=== PATIENT | male | born 1955 | race African-American/Black ===

== ENCOUNTER 2017-02-03 10:36 | Observation (INO) ==
[2017-02-03] MEDS ORDERED: NS 1,000 ML IV ONE ×3 (11:13→15:19)
[2017-02-03 11:35] LABS: MANUAL DIFF NEEDED? NO
--- NOTE | 2017-02-03 11:36 | Diag Imaging Result Doc PS360 ---
EXAM: CHEST-2 VIEWS HISTORY: tachycardia TECHNIQUE: COMPARISON: 11/09/2016 FINDINGS: The lungs are well expanded. The heart is not enlarged. The vessels are not distended. There are no infiltrates. No pleural effusions. Interval removal of the left-sided PICC line. Resolution of the prior atelectasis. IMPRESSION: No acute abnormality. Electronically signed by Rupert Drake 02/03/2017 11:34 AM
[2017-02-03 11:45] LABS: BASO% 0.1 % (0.0-0.8); EOS# 0.01 X1000 (0.0-0.7); EOS% 0.1 % (0.0-10.0); HEMATOCRIT 35.7 % (42.0-52.0); HEMOGLOBIN 11.7 g/dL (14.0-18.0); IMM GRAN# 0.11 X1000 (0.0-0.04); IMM GRAN% 0.7 % (0.0-0.5); LYMPH# 1.84 X1000 (1.2-3.4); LYMPH% 12.1 % (20.5-51.1); MCH 24.6 PG (27-31); MCHC 32.8 g/dL (33-37); MCV 75.2 FL (81-99); MONO# 1.19 X1000 (0.11-0.59); MONO% 7.8 % (1.7-9.3); MPV 9.9 FL (7.4-10.4); NEUT% 79.2 % (42.2-75.2); PLT 386 X1000 (130-400); RBC 4.75 XMIL (4.7-6.1)
[2017-02-03 11:51] LABS: ALLEN TEST YES; BE -2.1 mmoll (-3.0-3.0); BLOOD TYPE ARTERIAL; DRAW SITE L RADIAL; METHB 0.9 % (0.0-1.5); O2(CT) 15.6 mL/dL (15.0-23.0); PCO2(98.6) 36 mmHg (35-45); PO2(98.6) 81 mmHg (60-100); SAMPLE BLOOD; SAO2 98.4 % (95.0-100.0); THB 11.5 g/dL (11.5-17.4)
[2017-02-03 11:52] LABS: INR 1.27; PROTIME 13.5 Seconds (9.2-11.7); PTT 36.6 Seconds (22.0-36.0)
[2017-02-03 11:52] LABS: MODALITY ROOM AIR
[2017-02-03 12:16] LABS: ALBUMIN 4.3 g/dL (3.5-5.0); CALCIUM 11.4 mg/dL (8.8-10.2); TOTAL BILIRUBIN 0.19 mg/dL (0.20-1.00); TOTAL PROTEIN 9.2 g/dL (6.3-8.3)
--- NOTE | 2017-02-03 12:23 | EKG Report ---
Test Performed on : 02/03/2017 11:50:53 AM Test Reason : tachycardia Blood Pressure : / mmHG Vent. Rate : 098 BPM Atrial Rate : 098 BPM P-R Int : 216 ms QRS Dur : 106 ms QT Int : 416 ms P-R-T Axes : 070 -60 044 degrees QTc Int : 531 ms Sinus rhythm. with 1st degree AV block. with frequent premature ventricular complexes. in a pattern of bigeminy. Left axis deviation Nonspecific ST abnormality Prolonged QT Abnormal ECG When compared with ECG of 01-NOV-2016 09:47, Significant changes have occurred Unconfirmed Result
[2017-02-03 12:36] LABS: POTASSIUM 2.4 mmol/L (3.5-5.1)
[2017-02-03] MEDS ORDERED: KLOR-CON PO ONE (12:53)
--- NOTE | 2017-02-03 14:09 | Diag Imaging Result Doc PS360 ---
EXAM: ABDOMEN/PELVIS W/O CONTRAST INDICATION: abd pain diarrhea leukocytosis TECHNIQUE: Dose reduction protocol was used. COMPARISON: 10/24/2016 FINDINGS: There is minimal subsegmental atelectasis at the lung bases. The more severe atelectasis seen on the previous study has improved greatly. The spleen is not enlarged. There are a few calcified granulomata in the liver and the spleen. The kidneys are unremarkable. There is questionable mild thickening involving the sigmoid and descending colon with adjacent very subtle stranding. This could indicate mild colitis. Please correlate with clinical findings. Full evaluation is limited with no IV contrast. There are traces of radiopaque material in the distal colon, likely contrast from a previous study. There is no free abdominal gas or free fluid. There is no obstructive bowel pattern. The remainder of the solid viscera of the abdomen and pelvis and the remainder of the GI tract are essentially unremarkable. There are innumerable lytic lesions throughout the spine, sacrum, and pelvis that are similar to the previous study and consistent with known multiple myeloma. IMPRESSION: 1.Questionable mild distal colonic wall thickening and perhaps subtle surrounding stranding, which could indicate very mild colitis. Please correlate clinically. 2.Diffuse lytic bony metastases. 3.Other incidental/nonacute findings detailed above. Electronically signed by Mata Red 02/03/2017 2:06 PM
[2017-02-03] MEDS ORDERED: FLAGYL 500 MG/NS 500 MG/100 ML IVPB IV ONE (14:41)
[2017-02-03] MEDS ORDERED: LEVAQUIN 500 MG/D5W 500 MG/100 ML IVPB IV ONE (14:41)
--- NOTE | 2017-02-03 15:38 | PROVIDER DOCUMENTATION ---
This chart was entered by Nic Garrett Scribe, acting as scribe for Dea Aiken MD. HPI-General Adult - General Chief Complaint: General Adult Stated Complaint: DIARRHEA/WEAK Time Seen by Provider: 02/03/17 11:01 Source: patient, family Allergies/Adverse Reactions: Patient Allergies Allergy/AdvReac Type Severity Reaction Status Date / Time No Known Allergies Allergy Verified 02/03/17 10:59 Home Medications: Home Medication List Medication Instructions Recorded Confirmed Last Taken Type Furosemide [Lasix] 40 mg PO DAILY 10/24/16 02/03/17 1 Day Ago History Levalbuterol Neb [Xopenex Neb] 1.25 mg INH RTQ4H #0 neb 11/08/16 02/03/17 1 Day Ago Rx Pantoprazole [Protonix] 40 mg PO DAILY@0700 #0 tablet 11/08/16 02/03/17 1 Day Ago Rx Polyvinyl Alcohol Eye Drops 1 ml RIGHT EYE 4XDAY #0 bottle 11/08/16 02/03/17 1 Day Ago Rx [Tearisol Oph Solution] Albuterol 2.5MG/Ipratrop 0.5MG 3 ml INH RTQ6H #0 neb 11/11/16 02/03/17 1 Day Ago Rx [Duoneb (A & A)] Diltiazem HCl [Cartia Xt] 120 mg PO QAM 02/03/17 02/03/17 1 Day Ago History Gabapentin 300 mg PO TID 02/03/17 02/03/17 1 Day Ago History Methocarbamol [Methocarbamol] 750 mg PO BID 02/03/17 02/03/17 1 Day Ago History Mirtazapine [Mirtazapine] 15 mg PO DAILY 02/03/17 02/03/17 1 Day Ago History Polyethylene Glycol 3350 [Miralax] 17 gm PO QAM 02/03/17 02/03/17 1 Day Ago History Potassium Chloride 20% Liquid 20 meq PO BID 02/03/17 02/03/17 1 Day Ago History Valacyclovir HCl [Valacyclovir] 500 mg PO BID 02/03/17 02/03/17 1 Day Ago History Warfarin Sodium [Warfarin Sodium] 1 mg PO DAILY 02/03/17 02/03/17 1 Day Ago History - History of Present Illness -Gen Adult Nature of Presenting Problems: Patient is a 62 y/o M that presents with weakness, diarrhea, loss of balance( falling frequently), and loss of appetite for weeks, but got worse over past few days. patient has bone cancer and is being treated by ( chemo injections). patient was seen 2 days ago and giving fluids but symptoms got worse. He was also advise he had low potassium the other day. Location of Pain/Injury: reports: generalized Pain Radiation: reports: no radiation Quality of Pain: reports: aching, other (weakness) Severity: reports: moderate Onset/Duration: reports: gradual, other (weeks unable to pinpoint when) Timing: reports: still present, constant Context/Activities at Onset: reports: other (recent chemo) Modifying Factors: improves with: nothing Associated Symptoms: reports: diarrhea, dizziness, fatigue, loss of appetite, malaise, muscle aches, nausea, weakness. denies: chest pain, diaphoresis, fever /chills, genitourinary problems, shortness of breath, vomiting Similar Symptoms Previously?: Yes Recently seen or treated by another doctor?: Yes Review of Systems - Adult - REVIEW OF SYSTEMS - ADULT ROS:: ROS per family (as well as patient) Constitutional: reports: fatique, weight loss. denies: chills, fever Eyes: reports: no symptoms reported Ears, Nose, Mouth & Throat: denies: ear discharge, ear pain, sinus problem, throat pain, throat swelling Cardiovascular: denies: chest pain, palpitations, syncope Respiratory: denies: cough, shortness of breath, wheezing Gastrointestinal: reports: abdominal pain, diarrhea, nausea, poor appetite. denies: hematemesis, vomiting Genitourinary: denies: dysuria, frequency, hematuria Musculoskeletal: reports: muscle aches, muscle weakness Integumentary: reports: no symptoms reported Neurological: reports: dizziness/vertigo, loss of balance. denies: headache/ migraines, syncope Psychiatric: reports: no symptoms reported Endocrine: reports: no symptoms reported Hematologic/Lymphatic: reports: no symptoms reported Allergic/Immunologic: reports: no symptoms reported All Other Systems: Reviewed and Negative Past History - Adult - PAST MEDICAL HISTORY-ADULT Review of Records: reports: Old Records Reviewed, Nursing Assessment Review, Medications Reviewed Cardiovascular: reports: CHF, HTN Other Conditions: reports: other cancer ("bone" per patient) - PRIOR SURGERIES/PROCEDURES Surgical/Procedure History: reports: reviewed, not pertinent - IMMUNIZATION STATUS Childhood Immunizations: See Nurse Assessment Flu Vaccine: See Nurse Assessment - FAMILY HISTORY Family History: reviewed, not pertinent - SOCIAL HISTORY Smoking: non-smoker Alcohol Use Frequency: occasionally Living Situation: family Physical Exam-General - PHYSICAL EXAM-ADULT Initial Vital Signs Reviewed: Yes - CONSTITUTIONAL General Appearance: alert, mild distress, moderate distress, thin, other ( chronic ill-appearing) - EYES Eyes: PERRL/EOMI, pink conjunctivae - HEAD, EARS, NOSE, MOUTH & THROAT HENMT: normocephalic/atraumatic, normal ENT inspection, other (dry oral mucosa) - NECK Neck: full range of motion, normal inspection - RESPIRATORY Respiratory: lungs clear, normal breath sounds, no respiratory distress, no accessory muscle use, other (muscle spasm to chest) - CARDIOVASCULAR Cardiovascular: tachycardia, extra beats - GASTROINTESTINAL (ABDOMEN) Abdominal Exam: normal bowel sounds, soft, no organomegaly, no pulsatile mass, tenderness (lower abdomen( RLQ and LLQ)) - MUSCULOSKELETAL Back Exam: no CVA tenderness, no vertebral tenderness Extremity: normal range of motion, normal inspection, no pedal edema - SKIN Integumentary: normal color, warm/dry - NEUROLOGIC Neurologic: grossly normal, no motor/sensory deficits - PSYCHIATRIC Psych/Mental Status: normal mood/affect, normal thought content, normal thought process, oriented x 3 Progress - PLAN OF CARE/RESULTS Progress/Plan/Lab Results: Vital Signs - 8 hr 02/03/17 10:41 Temperature 97.5 F L Pulse Rate 121 H Respiratory Rate 18 Blood Pressure 136/96 O2 Sat by Pulse Oximetry 100 Result Diagrams: 02/03/17 11:19 02/03/17 11:19 - EKG 1 Time of EKG reading by physician:: 11:50 EKG Read and Signed by:: Dea Aiken EKG Interpretation (*Must complete 3 of following elements*): Abnormal Rate: 98 Rhythm: Sinus rhythm with 1st degree av block [place]: left QRS: PVC's (frequent, bigminy) PA Interval: normal ST Wave: non-specific ST changes - XRAY 1 XRAY Study: Chest Impression: Normal XRAY Interpretation: NAD - CT/MRI 1 CT Study: Abdomen, Pelvis Impression: Abnormal CT Results: lytic bone metastaes, mild colonic wall thickening,very mild colitis - CONSULTS/PCP/HOSPITALIST Notification #1 *Consult/PCP/Hospitalist*: Anamaria VINCENT Time Discussed: 15:12 Reason/Comments: accepted for Hospitalist ( ) Consult Disposition: Will see in ED, Admit Departure - Departure Date of Disposition Decision: 02/03/17 Time of Disposition Decision: 15:18 DIAGNOSIS: Dehydration, Colitis, Hypokalemia Disposition: ADMITTED INPATIENT 09 Certified Medical Emergency: Emergent Condition: Stable Referrals and Follow-Ups: Demetrio Aragon MD [Primary Care Provider] - - Critical Care Note This patient required my direct & personal management of CC.: Yes Total Time (mins): 35 Critical Care Statement: This patient required my direct personal management to treat or rule out processes, the absence of which, could potentiallly result in sudden, clinically significant life or limb threatening deterioration. This chart was documented by the indicated scribe, (Nic Garrett, Scribe) and accurately reflects the services I performed and decisions made by me, Dea Aiken MD, as attested by the provider's signature.
--- NOTE | 2017-02-03 17:06 | HISTORY AND PHYSICAL ---
HISTORY OF PRESENT ILLNESS: Mr. Majano came to the emergency room and complains that he has had diarrhea and he has not been eating much and losing some weight and very weak. This is a patient of Dr. Demetrio Aragon, followed by Dr. Kvng Kaminski. He is a 61-year-old male with history of multiple myeloma on chemotherapy, had been treated by Dr. Kaminski. He presented on 10/24/2016 complaining of shortness of breath for several days, abdominal pain at that time. He also appeared to be in septic shock at that point. He was admitted and got better, went to rehab, did make some improvement in rehab and then has been home. Family is concerned because he continues to lose weight and stools are loose, and it has been going on for a couple weeks, but it seems to be worse in the last [address] of the abdomen and pelvis in the emergency room, questionable mild distal colonic wall thickening and perhaps a subtle surrounding stranding which could indicate mild colitis. Has diffuse lytic bone metastasis, other incidental nonacute findings. PAST MEDICAL HISTORY: I think we gave some immunoglobulin, treated him with pneumonia, prolonged course. But really only significant past medical problem is his multiple myeloma which has been very aggressive. We suspect he has had some gastritis. PAST SURGICAL HISTORY: Pretty unremarkable. FAMILY HISTORY: Unknown, noncontributory. SOCIAL HISTORY: Negative for alcohol or tobacco. ALLERGIES: No known drug allergies. REVIEW OF SYSTEMS: He has lost weight. His appetite is poor, and loose stool. Does not report any shortness of breath or chest pain. No blood in the stool. No gross hematuria or dysuria. No focal motor defects. No history of presyncope or syncope. PHYSICAL EXAMINATION TODAY: Vital Signs: Temperature 97.5 degrees, pulse 90, respirations 17, blood pressure 145/95. CVP less than 6 cm. Lungs: Clear in all lung saleh. Cardiovascular: Regular rate without murmur or S3. Weight 126 pounds, height 5 feet 10 inches. Lungs: Clear anterior and lateral Cardiovascular: Regular rhythm and rate without murmur or S3. Abdomen: Soft, nontender, nondistended. Skin: Warm and dry. Neurologic: He is awake and alert, oriented and pleasant. No sign of distress. DIAGNOSTIC DATA: White count 15,220, hematocrit 35, platelet count 386,000. Sodium 131, potassium 2.4, chloride 90, bicarb 30, BUN 17, creatinine 2.3. Liver functions unremarkable. Albumin 4.3, globulin 4.9. PT is 13.5, PTT is 36. ABGs; pH of 7.4, pCO2 36, PO2 81, saturation 98%, FiO2 21%. Abdominal and pelvic CT: Questionable mild distal colonic wall thickening and perhaps septal surrounding stranding which could indicate mild colitis, diffuse lytic bone metastasis. Chest x-ray: No acute abnormality. ASSESSMENT AND PLAN: 1. Anorexia, weight loss, poor appetite, and loose stools, diarrhea. Questionable colitis on the CT scan. Will ask Gastroenterology to help. He is hungry so we will try him on a soft diet. I am not sure if he is going to require a colonoscopy. We have not seen any evidence of bleeding, hematocrit is 35, hemoglobin 11, with an MCV of 75. So I guess we will check some iron studies. Serum iron, total iron-binding capacity, and ferritin. We will also go ahead and check a quantitative C-reactive protein, and see if any sign of inflammation. 2. Hypokalemia. Will give him some potassium, 40 mEq KCl p.o. now, actually I think we will give it to him p.o., so we will give him 40 mEq p.o. now. He already got 60 in the emergency room. So I guess we will leave that alone and check it in the morning. We will check his magnesium as well. 3. Multiple myeloma with lytic lesions seen on CAT scan. Dr. Kaminski will help follow. I am not sure if we need to check an M protein or markers, but we will see what he wants to do. We will check stools for Clostridium difficile, white blood cell. cc: Jose Mario MD
[2017-02-03] MEDS ORDERED: ZOFRAN IV PRN (17:54)
[2017-02-03] MEDS ORDERED: TYLENOL PO PRN (17:54)
[2017-02-03] MEDS: NS 1,000 ML IV SCH (19:00)
[2017-02-03] MEDS: NEURONTIN PO SCH (19:00)
[2017-02-03] MEDS: TEARISOL OPH SOLUTION RIGHT EYE SCH ×2 (19:20→21:23)
[2017-02-03] MEDS: DUONEB (A & A) INH SCH (21:08)
[2017-02-03] MEDS: FLAGYL 500 MG/NS 500 MG/100 ML IVPB IV SCH (21:19)
[2017-02-03] MEDS: ROBAXIN PO SCH (21:21)
[2017-02-03] MEDS: PRILOSEC PO SCH (21:21)
[2017-02-03] MEDS: CIPRO PO SCH (21:21)
[2017-02-03] MEDS: POTASSIUM CHLORIDE 20% LIQUID PO SCH (21:22)
[2017-02-03] MEDS: VALTREX PO SCH (21:22)
[2017-02-04 00:35] LABS: URINE CULTURE NEEDED? NO; URINE MICRO REVIEW NEEDED? NO; URINE SOURCE CLEAN CATCH
[2017-02-04 00:37] LABS: BILIRUBIN URINE NEGATIVE (NEGATIVE); BLOOD URINE NEGATIVE (NEGATIVE); COLOR YELLOW; GLUCOSE URINE NEGATIVE (NEGATIVE); LEUKOCYTES URINE NEGATIVE (NEGATIVE); NITRITE URINE NEGATIVE (NEGATIVE); PH URINE 5.5; PROTEIN URINE TRACE mg/dL (NEGATIVE); SP GRAVITY URINE 1.007; TURBIDITY URINE CLEAR (CLEAR); UROBILINOGEN URINE NORMAL (NORMAL)
[2017-02-04 00:39] LABS: UR EPITHELIAL CELLS <10 /HPF (<10); URINE BACTERIA NEGATIVE /HPF; URINE RBC <10 /HPF (<10); URINE WBC <10 /HPF (<10)
[2017-02-04] MEDS: COUMADIN PO SCH ×2 (03:20→22:00)
[2017-02-04] MEDS: FLAGYL 500 MG/NS 500 MG/100 ML IVPB IV SCH ×4 (03:20→21:59)
[2017-02-04] MEDS: DUONEB (A & A) INH SCH ×4 (04:02→22:25)
--- NOTE | 2017-02-04 06:27 | PROGRESS NOTE ---
DATE: 02/03/2017 ADDENDUM: 1. Note that he has acute kidney injury as well. Serum creatinine 2.3. So, we are going to give him some fluids and follow. 2. He is on Coumadin. I notice where he was put on Cardizem. That was really for sinus tachycardia. I do not see any evidence that he had atrial but he was also on Coumadin; I am not sure exactly why. He has had a noninvasive venous study done which was negative. His protime is subtherapeutic. We will keep him on it for now and see if we can explore reasons why he is on it. We will initiate some Flagyl and Levaquin for possible colitis. cc: Jose Mario MD
[2017-02-04 06:57] LABS: MANUAL DIFF NEEDED? NO
[2017-02-04 07:07] LABS: INR 1.28; PROTIME 13.7 Seconds (9.2-11.7); PTT 34.6 Seconds (22.0-36.0)
[2017-02-04 07:09] LABS: BASO% 0.1 % (0.0-0.8); EOS# 0.01 X1000 (0.0-0.7); EOS% 0.1 % (0.0-10.0); HEMATOCRIT 25.2 % (42.0-52.0); HEMOGLOBIN 8.2 g/dL (14.0-18.0); IMM GRAN# 0.09 X1000 (0.0-0.04); IMM GRAN% 1.2 % (0.0-0.5); LYMPH# 1.49 X1000 (1.2-3.4); LYMPH% 19.6 % (20.5-51.1); MCH 24.9 PG (27-31); MCHC 32.5 g/dL (33-37); MCV 76.6 FL (81-99); MONO# 0.94 X1000 (0.11-0.59); MONO% 12.3 % (1.7-9.3); MPV 9.4 FL (7.4-10.4); NEUT% 66.7 % (42.2-75.2); PLT 281 X1000 (130-400); RBC 3.29 XMIL (4.7-6.1)
[2017-02-04 07:30] LABS: AGAP 12; ALBUMIN 3.2 g/dL (3.5-5.0); ALKALINE PHOSPHATASE 64 U/L (32-122); BUN 11 mg/dL (8-22); CALCIUM 8.6 mg/dL (8.8-10.2); CHLORIDE 103 mmol/L (98-107); COSMO 271; GOT 11 U/L (10-34); GPT 5 U/L (10-44); MAGNESIUM 1.8 mg/dL (1.5-2.7); POTASSIUM 3.1 mmol/L (3.5-5.1); SODIUM 136 mmol/L (136-145); TCO2 21 mmol/L (25-35); TOTAL BILIRUBIN 0.18 mg/dL (0.20-1.00); TOTAL PROTEIN 6.2 g/dL (6.3-8.3)
[2017-02-04 07:45] LABS: FREE T4 1.12 ng/dL (0.93-1.70)
[2017-02-04] MEDS: NS 1,000 ML IV SCH ×3 (08:53→16:53)
--- NOTE | 2017-02-04 12:40 | CONSULTATION ---
DATE OF CONSULTATION: 02/04/2017 REASON FOR CONSULT: This patient has a IgA lambda multiple myeloma. HISTORY OF PRESENT ILLNESS: The patient is known to us with IgA lambda multiple myeloma. His myeloma has been very stable on maintenance Velcade 3 weeks on and 1 week off. He does also have known bone metastases. He is on Zometa. Was admitted after having several days of diarrhea and continued weight loss. He has had some weight loss at our clinic. He had initially been placed on Remeron which did not work for him and then we changed him to Megace 40 mg t.i.d. as well as thromboprophylaxis with low-dose Coumadin. The patient's weight however apparently has continued to decline and he had an episode of dizziness and feels generally weak. The patient came to the emergency room for further evaluation. A CT abdomen and pelvis has been performed which shows questionable mild distal colonic wall thickening and subtle stranding in the surrounding areas which could indicate very mild colitis as well as diffuse lytic bony metastases. Initial WBC was 15.22, hemoglobin 11.7, platelet count 380,000. His sodium was 131, potassium was 2.4. The patient denies any obvious clinical bleeding, any black or bright red stools, any fever, chills, worsening bone pain, new lumps or bumps. REVIEW OF SYSTEMS: All other review of systems negative unless indicated in the HPI. PAST MEDICAL HISTORY: Multiple myeloma as above. He also has a history of bony metastases on Zometa, Klebsiella sepsis and hypogammaglobulinemia, neuropathy on Neurontin and decreased appetite and weight loss. ALLERGIES: No known allergies. SOCIAL HISTORY: Patient denies alcohol, illicit drug or tobacco use. He has a supportive family. PHYSICAL EXAMINATION: Vital Signs: Stable. Cardiovascular: S1, S2 audible to auscultation with no heaves, lifts, thrills. Pulmonary: Breath sounds clear to auscultation. Normal respiratory effort. HEENT: Head is normocephalic, atraumatic. Pupils equal, round, symmetric. Mucous membranes are dry. Abdomen: Soft, slightly tender. Positive bowel sounds. Skin: No petechiae, ecchymosis or rash. Lymphatic: No palpable enlarged lymph nodes. Neurologic: Alert orient x3. Psychiatric: Appropriate to the situation. DIAGNOSTIC DATA: CT abdomen pelvis as above. WBC today is 7.62, hemoglobin is down to 8.2, hematocrit 25.2, platelet count 281,000. Sodium is 136, potassium 3.1. BUN is 11 and creatinine is 1.1. ASSESSMENT AND PLAN: 1. IgA lambda multiple myeloma. On maintenance Velcade 3 weeks on and 1 week off. The patient has declined transplant evaluation. He has known bone metastases on Zometa. His counts have been very stable. 2. Weight loss and anorexia. We placed the patient on Megace 40 mg t.i.d. and he also had thromboprophylaxis provided with low-dose Coumadin. He however continued to have weight loss with plans as below. 3. Diarrhea and questionable colitis on CT scan. GI has been consulted. His hemoglobin and hematocrit has come down over the past 24 hours although it could be due to the level of dehydration. Hemoglobin is 8.2, hematocrit 25.2 today. We will monitor that. The patient has been started on Flagyl. Stool cultures have been ordered as has C. difficile toxin. He is also on Cipro and will transfuse p.r.n. 4. History of Klebsiella sepsis with hypogammaglobulinemia. 5. Electrolyte imbalance. They are being replaced per primary team. 6. DVT prophylaxis with SCDs. 7. Acute Kidney Injury/Dehydration. Creatinine is improved with NS. Dictated by MELISA Long for Kvng Kaminski MD cc: MELISA Long MD [facility]
[2017-02-04] MEDS ORDERED: DIPRIVAN 1% ONE (14:19)
[2017-02-04] MEDS ORDERED: VERSED ONE (14:31)
--- NOTE | 2017-02-04 15:20 | OPERATIVE NOTE ---
PROCEDURE DATE: 02/04/2017 PROCEDURE: 1. Colonoscopy. 2. Esophagogastroduodenoscopy. PREOP DIAGNOSES: 1. Nausea, vomiting, 2. Diarrhea. POSTOP DIAGNOSES: 1. Mild esophagitis otherwise normal upper gastrointestinal tract. 2. Normal colonoscopy. 3. Few diverticula. DESCRIPTION OF PROCEDURE: After informed consent, adequate intravenous sedation by Anesthesia, the scope introduced the esophagus. Patient has reflux esophagitis. Cardia, fundus, body, antrum, pylorus, duodenal bulb to 2nd portion normal. The scope was withdrawn. At this point digital rectal exam performed. Scope introduced all the way into cecum. The patient has diverticulum above the ileocecal valve and a couple of other diverticula. Other than that colonoscopy is completely normal. There is no sign of any colitis or pseudomembranes. The scope is withdrawn. The patient tolerated procedure, transported back to recovery area in satisfactory condition. RECOMMENDATION: Advance the diet, discontinue the antibiotic, discharge planning. cc: Kami Pettit MD
[2017-02-04] MEDS: POTASSIUM CHLORIDE 20% LIQUID PO SCH ×2 (15:54→21:59)
[2017-02-04] MEDS: NEURONTIN PO SCH ×3 (15:54→22:33)
[2017-02-04] MEDS: CARDIZEM CD PO SCH (15:54)
[2017-02-04] MEDS: CIPRO PO SCH ×2 (15:54→22:00)
[2017-02-04] MEDS: ROBAXIN PO SCH ×2 (15:55→22:01)
[2017-02-04] MEDS: PRILOSEC PO SCH ×2 (15:55→22:00)
[2017-02-04] MEDS: REMERON PO SCH (15:55)
[2017-02-04] MEDS: VALTREX PO SCH ×2 (15:56→22:33)
[2017-02-04] MEDS: TEARISOL OPH SOLUTION RIGHT EYE SCH ×4 (15:56→22:36)
--- NOTE | 2017-02-04 17:45 | PROGRESS NOTE ---
DATE: 02/04/2017 SUBJECTIVE: Mr. Majano had a colonoscopy and apparently was unremarkable. He is feeling better. He is able to eat a couple of bites. His bowels have not moved yet. He has no nausea at this time. OBJECTIVE: Vital signs: Temperature is 97.5 degrees, pulse 85, respirations 20, blood pressure 151/91. Lungs: Clear in all lung saleh. Neck: CVP less than 6 cm. Cardiovascular: Regular rate without murmur or S3. Abdomen: Soft. LAB: White count 7,620, hematocrit 25, platelet count 281,000. Chemistry sodium 136, potassium 3.1, chloride 103, bicarb 21, BUN 11, creatinine 1.1, magnesium 1.8, calcium 8.6. C-reactive protein was 29.78. Albumin 3.2. ASSESSMENT AND PLAN: 1. Nausea, vomiting, diarrhea. Had colonoscopy and EGD. Mild esophagitis, otherwise normal upper gastrointestinal tract. 2. Normal colonoscopy. There were a few diverticula. Recommend we advance diet. Will probably discontinue his antibiotic. Note, he did have some leukocytosis and on CT scan there was question of a thickened colon. 3. IgA lambda multiple myeloma. On maintenance Velcade 3 weeks and 1 week off. The patient has declined a transplant evaluation. He has known bony metastases. He is on Zometa and his counts have been stable. 4. Weight loss and anorexia. Patient placed on Megace. He has also had thrombo prophylaxis provided with low-dose Coumadin. Encourage p.o. intake. 5. Diarrhea. Questionable colitis, as above. We will supplement some potassium. REVIEW OF HIS ORDERS: I do not see much in the way of change. We have him on Flagyl right now and Cipro. I think stool was sent for studies. cc: Jose Mario MD
[2017-02-05] MEDS: NS 1,000 ML IV SCH ×2 (03:03→04:59)
[2017-02-05] MEDS: FLAGYL 500 MG/NS 500 MG/100 ML IVPB IV SCH ×2 (03:04→08:47)
[2017-02-05] MEDS: DUONEB (A & A) INH SCH ×3 (03:59→15:50)
[2017-02-05 06:43] LABS: MANUAL DIFF NEEDED? NO
[2017-02-05 06:57] LABS: BASO% 0.1 % (0.0-0.8); EOS# 0.02 X1000 (0.0-0.7); EOS% 0.3 % (0.0-10.0); HEMATOCRIT 24.8 % (42.0-52.0); HEMOGLOBIN 8.1 g/dL (14.0-18.0); IMM GRAN# 0.05 X1000 (0.0-0.04); IMM GRAN% 0.7 % (0.0-0.5); INR 1.3; LYMPH# 1.56 X1000 (1.2-3.4); LYMPH% 23.3 % (20.5-51.1); MCHC 32.7 g/dL (33-37); MCV 76.5 FL (81-99); MONO# 0.96 X1000 (0.11-0.59); MONO% 14.3 % (1.7-9.3); MPV 9.6 FL (7.4-10.4); NEUT% 61.3 % (42.2-75.2); PLT 243 X1000 (130-400); PROTIME 13.9 Seconds (9.2-11.7); RBC 3.24 XMIL (4.7-6.1)
[2017-02-05] MEDS: CIPRO PO SCH (08:44)
[2017-02-05] MEDS: ROBAXIN PO SCH (08:44)
[2017-02-05] MEDS: VALTREX PO SCH (08:45)
[2017-02-05] MEDS: REMERON PO SCH (08:45)
[2017-02-05] MEDS: POTASSIUM CHLORIDE 20% LIQUID PO SCH (08:46)
[2017-02-05] MEDS: NEURONTIN PO SCH (08:46)
[2017-02-05] MEDS: PRILOSEC PO SCH (08:46)
[2017-02-05] MEDS: CARDIZEM CD PO SCH (08:46)
[2017-02-05] MEDS: TEARISOL OPH SOLUTION RIGHT EYE SCH (08:49)
[2017-02-05 08:52] VITALS: BP 130/84
[2017-02-05] MEDS ORDERED: CENTRUM SILVER PO SCH (10:30)
[2017-02-05] MEDS ORDERED: ICAR-C PO SCH (10:30)
--- NOTE | 2017-02-05 12:24 | PROGRESS NOTE ---
DATE: 02/05/2017 SUBJECTIVE: Mr. Majano feels much better. He wants to try and get up and move around and see how he does but he is eating better. Nausea and abdominal pain resolved. OBJECTIVE: Vital Signs: Temperature 98.3 degrees, pulse 97, respirations 18, blood pressure 130/84. HEENT: Pupils are equal, round. Lungs: Clear in all lung saleh. Cardiovascular: Regular rhythm and rate without murmur or S3. Urine output 800 mL. LABORATORY DATA: White count 6690, hematocrit 24, platelet count 243,000. Sodium 136, potassium 3.1, chloride 103, BUN 11, creatinine 1.1. Feels much better. Doing much better. He said he wants to see how he does walking around and may want to go home today. ASSESSMENT/PLAN: 1. Nausea, vomiting, diarrhea. A colonoscopy/EGD, mild esophagitis. Otherwise normal upper GI tract. 2. Normal colonoscopy. He had a few diverticulum. 3. IgA lambda multiple myeloma. On maintenance Velcade 3 weeks and 1 week off. The patient has declined transplant evaluation. He has known bony metastasis and he is Zometa. 4. Weight loss and anorexia. The patient was placed on Megace. Continued to encourage p.o. intake. 5. Diarrhea which seems to be better. There questionable colitis but colonoscopy did not confirm that. PLAN: I am going to probably keep him on prolonged Flagyl but will stop the Cipro. He is going to walk around and see how he does. He is hoping to go home. If he is walking right and he wants to go home, I told he could. cc: Jose Mario MD
--- NOTE | 2017-02-05 15:21 | DISCHARGE SUMMARY ---
ADMISSION DATE: 02/03/2017 DISCHARGE DATE: 02/05/2017 HOSPITAL COURSE: This is a patient of Dr. Demetrio Aragon. He came to the emergency room on 02/03/2017 with complaints of diarrhea, not been eating much, losing weight, being very weak. He has been followed by Dr. Kvng Kaminski. He is a 61-year-old male with a history of multiple myeloma and chemotherapy treated per Dr. Kaminski who presented on 10/24/2016 complaining of shortness of breath for several days, abdominal pain at that time, also appeared in septic shock at that point. He was admitted, got better, went to rehabilitation, and has since come home. He was making progress but the last 3 or 4 days he has had loose stools, poor appetite and was a little weaker. A CT of the abdomen and pelvis in the emergency room showed questionable mild distal colonic wall thickening and perhaps colitis. He has empirically been on Cipro and Flagyl. He underwent EGD and colonoscopy the following day with Dr. Pettit which was really unremarkable. He did feel better. He was eating and requested to go home on 02/05/2017. Colonoscopy did not show any colitis. I will keep him on Flagyl another 7 days. Otherwise continue his present medications. He has IgA multiple myeloma. I encouraged activity. I encouraged p.o. intake. He is on Cardizem. He will be discharged on Cardizem CD 120 mg a day, Neurontin 300 mg t.i.d., Icar-C b.i.d., Robaxin 750 mg b.i.d. I will keep him on Flagyl 500 mg b.i.d. for 7 days, Remeron 15 mg a day, Centrum Silver 1 a day, Prilosec 40 mg p.o. b.i.d., Coumadin 1 mg at bedtime which he is on for prophylaxis low-dose, and Valtrex 500 mg b.i.d. LABORATORY: On review of labs hematocrit 24, hemoglobin 8 but it remains stable. I did not feel we should transfuse at this time. Serum creatinine is 1.1., potassium 3.1. He is on supplementary potassium at home 20 mEq liquid b.i.d. On review of his magnesium it was 1.8. cc: Jose Mario MD
--- NOTE | 2017-02-05 16:42 | PROGRESS NOTE ---
DATE: 02/05/2017 SUBJECTIVE: Patient resting in bed. He is getting discharged. Denies any nausea, vomiting or diarrhea. Denies abdominal, denies any fevers, rigors, chills. OBJECTIVE: Vitals: Temperature 98.3 degrees, pulse of 72, respiratory 16, blood pressure of 130/84, saturating on room air. Body weight of 126 pounds 8 ounces. General: Thinly built lying in bed in no acute distress. HEENT: No pallor. Neck: Supple. Abdomen: Soft, nontender, nondistended. Bowel sounds. No guarding. No rebound. Extremities : No cyanosis, clubbing. Neurologic: He is alert, awake, oriented. LABS: His hemoglobin and hematocrit is 8.1, 24.8, white count of 6.6, platelet count of 243,000. INR 1.3. He is on Coumadin. His EGD and colonoscopy was done yesterday by Dr. Pettit which showed mild esophagitis, normal upper GI tract, normal colonoscopy, few diverticula above the IC valve. IMPRESSION AND PLAN: 1. Nausea, vomiting, diarrhea resolved likely viral. Patient will continue on PPIs for esophagitis. 2. Diverticulosis in the colon. Would avoid corn, nuts and seeds in diet. Avoid constipation. 3. IgA lambda multiple myeloma. Will continue on chemotherapy Dr. Kaminski as an outpatient. 4. Anemia. Will put him on Iron-C b.i.d. and multivitamin once daily. 5. Above plans discussed the patient and family bedside and all questions. cc: Kvng Kaminski MD [facility]
== END 2017-02-05 16:25 | disposition home or self-care (01) ==
LOC: ED 10:36 → 3N 17:09 → INTOOBSV 17:09
PROVIDERS: ATTEND Emergency Medicine

== ENCOUNTER 2017-03-31 10:30 | Inpatient (IN) ==
--- NOTE | 2017-03-31 11:13 | EKG Report ---
Test Performed on : 03/31/2017 10:57:37 AM Test Reason : weakness Blood Pressure : / mmHG Vent. Rate : 063 BPM Atrial Rate : 063 BPM P-R Int : 232 ms QRS Dur : 102 ms QT Int : 428 ms P-R-T Axes : 055 -60 054 degrees QTc Int : 437 ms Sinus rhythm. with 1st degree AV block. Left anterior fascicular block Abnormal ECG When compared with ECG of 03-FEB-2017 11:50, premature ventricular complexes. are no longer present Vent. rate has decreased BY 35 BPM T wave amplitude has decreased in Inferior leads T wave amplitude has decreased in Anterolateral leads QT has shortened Unconfirmed Result
[2017-03-31] MEDS ORDERED: NS 1,000 ML IV ONE (11:28)
--- NOTE | 2017-03-31 11:32 | PROVIDER DOCUMENTATION ---
HPI-General Adult - General Chief Complaint: Fall Stated Complaint: fall Time Seen by Provider: 03/31/17 11:18 Source: patient, family Allergies/Adverse Reactions: Patient Allergies Allergy/AdvReac Type Severity Reaction Status Date / Time No Known Allergies Allergy Verified 02/03/17 10:59 Home Medications: Home Medication List Medication Instructions Recorded Confirmed Last Taken Type Methocarbamol 1 - 2 tab PO TID 02/03/17 03/31/17 1 Day Ago History Diclofenac Sodium [Diclofenac 1 each TOP DIRECTED 03/31/17 03/31/17 Unknown History Sodium] Diltiazem HCl [Cartia Xt] 180 mg PO DAILY 03/31/17 03/31/17 Unknown History Gabapentin [Gabapentin] 300 mg PO TID 03/31/17 03/31/17 Unknown History Hydrocodone/Acetaminophen [[place] 1 each PO Q6H PRN 03/31/17 03/31/17 Unknown History 10-325 Tablet] Megestrol Acetate [Megestrol 1 ml PO TID 03/31/17 03/31/17 Unknown History Acetate] Nystatin [Nystatin] 1 tsp PO Q6H 03/31/17 03/31/17 Unknown History Omeprazole [Omeprazole] 20 mg PO DAILY 03/31/17 03/31/17 Unknown History Pantoprazole [Protonix] 40 mg PO DAILY 03/31/17 03/31/17 Unknown History Spironolactone [Spironolactone] 25 mg PO DAILY PRN 03/31/17 03/31/17 Unknown History - History of Present Illness -Gen Adult Nature of Presenting Problems: 62 year old AAM with multiple myloma was in radiology today having a complete skeletal survey for Dr. Kaminski. Pt was reported to fall for an unknown reason. Pt reports he did not loose consciousnesses and does not know why he fell. Pt reports he has been feeling weak and tired which started yesterday. pt pale in color, in no distress. reports pt has had a 30lb weight loss since October. she reports multiple falls at home with weakness. Location of Pain/Injury: reports: none Pain Radiation: reports: no radiation Quality of Pain: reports: none Review of Systems - Adult - REVIEW OF SYSTEMS - ADULT Constitutional: reports: see HPIrebekah. denies: chills, fever Eyes: reports: no symptoms reported. denies: discharge, blurred vision, double vision, redness Ears, Nose, Mouth & Throat: reports: no symptoms reported. denies: ear discharge, ear pain, nose pain, loose teeth, throat pain, throat swelling Cardiovascular: reports: no symptoms reported. denies: chest pain, heart murmur , irregular heart rate, orthopnea, palpitations, poor circulation, PND, syncope Respiratory: reports: no symptoms reported. denies: chronic cough, cough, shortness of breath, wheezing Gastrointestinal: reports: see HPI, other (reports dark colored stools). denies : abdominal pain, hematemesis, constipation, diarrhea, difficulty swallowing, frequent heartburn, nausea, poor appetite, rectal bleeding, vomiting Genitourinary: reports: no symptoms reported. denies: dysuria, hematuria, urgency Musculoskeletal: reports: no symptoms reported. denies: bone pain, joint pain, joint swelling, neck pain Integumentary: reports: no symptoms reported. denies: hives, itching, skin sores/ulcer Neurological: reports: no symptoms reported. denies: ataxia, dizziness/vertigo , numbness, paresthesia, syncope, tremors Psychiatric: reports: no symptoms reported Endocrine: reports: no symptoms reported Hematologic/Lymphatic: reports: see HPI, low blood count, transfusions. denies : blood clots, easy bruising Allergic/Immunologic: reports: no symptoms reported All Other Systems: Reviewed and Negative Past History - Adult - PAST MEDICAL HISTORY-ADULT Review of Records: reports: Old Records Reviewed, Nursing Assessment Review, Medications Reviewed, Social history reviewed & non-contributory. Major Childhood Illnesses: reports: denies history Cardiovascular: reports: CHF, HTN Respiratory: reports: denies history Gastrointestinal: reports: denies history Obstetrical/Gynecological: reports: denies history Genitourinary: reports: denies history Musculoskeletal: reports: denies history Neurological: reports: cancer/tumor Endocrine/Immune: reports: denies history Other Conditions: reports: other cancer ("bone" per patient) - PRIOR SURGERIES/PROCEDURES Surgical/Procedure History: reports: reviewed, not pertinent - IMMUNIZATION STATUS Childhood Immunizations: See Nurse Assessment Flu Vaccine: See Nurse Assessment - FAMILY HISTORY Family History: reviewed, not pertinent - SOCIAL HISTORY Smoking: denies, non-smoker Substance Use: none/never Alcohol Use Frequency: never Physical Exam-General - PHYSICAL EXAM-ADULT Initial Vital Signs Reviewed: Yes - CONSTITUTIONAL General Appearance: appears well, alert, no apparent distress, mild distress, cachetic, thin. negative: lethargic, slow to respond, obtunded, combative - EYES Eyes: pale conjunctivae. negative: pink conjunctivae, conjuctival exudate, sclera injected, scleral icterus, subconjunctival hemorrhage - HEAD, EARS, NOSE, MOUTH & THROAT HENMT: normocephalic/atraumatic, normal ENT inspection, other (dry membranes). negative: moist mucous membranes - NECK Neck: non-tender, full range of motion, supple, normal inspection. negative: C- spine tenderness, limited range of motion, tender lateral, tender midline - RESPIRATORY Respiratory: chest non-tender, lungs clear, normal breath sounds, no pleuratic chest pain, no respiratory distress, no accessory muscle use. negative: respiratory distress, decreased breath sounds, accessory muscle use, crackles, rales, rhonchi, stridor, wheezing - CARDIOVASCULAR Cardiovascular: normal peripheral pulses, regular rate, rhythm. negative: tachycardia - GASTROINTESTINAL (ABDOMEN) Abdominal Exam: normal bowel sounds, non tender, soft. negative: distended, guarding, rigid, tenderness - MUSCULOSKELETAL Back Exam: normal inspection, no CVA tenderness, no vertebral tenderness. negative: CVA tenderness, decreased range of motion, swelling, vertebral tenderness Extremity: normal range of motion, non-tender, normal gait, normal inspection, no pedal edema, no calf tenderness, normal capillary refill. negative: deformity, erythema, swelling, tenderness Peripheral Pulses: radial (R): 3+, radial (L): 3+, dorsalis-pedis (R): 3+, dorsalis-pedis (L): 3+ - SKIN Integumentary: normal turgor, warm/dry, pallor. negative: purpura, swelling, tenderness - NEUROLOGIC Neurologic: grossly normal, no motor/sensory deficits - PSYCHIATRIC Psych/Mental Status: normal mood/affect, normal thought content, normal thought process, oriented x 3 Progress - PLAN OF CARE/RESULTS Progress/Plan/Lab Results: Vital Signs - 8 hr 03/31/17 10:43 Temperature 96.0 F L Pulse Rate 69 Respiratory Rate 18 Blood Pressure 74/48 O2 Sat by Pulse Oximetry 100 Orders Category Date Time Status Saline Loc DIRECTED Care 03/31/17 11:27 Ordered FLAT/UPRIGHT ABD/1 VIEW CHEST [RAD] Stat Exams 03/31/17 11:28 Ordered BLOOD CULTURE [BLDCUL] Stat Lab 03/31/17 11:28 Uncollected CBC WITH DIFF [HEME] Stat Lab 03/31/17 11:14 Ordered COMPREHENSIVE METABOLIC PANEL [CHEM] Stat Lab 03/31/17 11:14 Ordered LACTATE, PLASMA [CHEM] Stat Lab 03/31/17 11:28 Uncollected OCCULT BLOOD SCREENING [STOOL] Stat Lab 03/31/17 11:27 Uncollected PROTIME WITH INR [COAG] Stat Lab 03/31/17 11:14 Ordered PTT [COAG] Stat Lab 03/31/17 11:14 Ordered TYPE & SCREEN [BBK] Stat Lab 03/31/17 11:27 Uncollected UA NIMS W/REFLEX CULT [URINALYSIS] Stat Lab 03/31/17 11:27 Uncollected UDS [URINE DRUG SCREEN] Stat Lab 03/31/17 11:28 Uncollected Ns 1000 ml IV Bolus X1 Med 03/31/17 11:28 Ordered 0.9% Sodium Chloride Inj [Ns] 1,000 ml IV 999 mls/hr EKG [EKG] Stat Ther 03/31/17 10:48 Draft EKG [EKG] Stat Ther 03/31/17 11:29 Ordered Laboratory Tests 03/31/17 03/31/17 03/31/17 11:08 11:08 11:08 WBC 10.58 RBC 3.48 L Hgb 9.2 L Hct 28.8 L MCV 82.8 MCH 26.4 L MCHC 31.9 L RDW Std Deviation 18.7 H Plt Count 457 H MPV 9.5 Immature Gran % (Auto) 0.4 Neut % (Auto) 64.4 Lymph % (Auto) 20.5 [place] % (Auto) 12.7 H Eos % (Auto) 1.6 Baso % (Auto) 0.4 Immature Gran # (Auto) 0.04 Neut # (Auto) 6.82 H Lymph # (Auto) 2.17 [place] # (Auto) 1.34 H Eos # (Auto) 0.17 Baso # (Auto) 0.04 PT 10.5 INR 1.00 PTT (Actin FS) 31.0 Sodium 138 Potassium 4.2 Chloride 102 Carbon Dioxide 22 L Anion Gap 14 BUN 14 Creatinine 1.3 H Estimated GFR/1.73 m2 > 60 BUN/Creatinine Ratio 11 Glucose 88 Calculated Osmolality 276 Calcium 10.0 Total Bilirubin 0.23 AST 17 ALT 9 L Alkaline Phosphatase 77 Creatine Kinase Troponin T Total Protein 7.4 Albumin 3.8 Globulin 3.6 Albumin/Globulin Ratio 1.1 Plasma Lactate Urine Source Urine Color Urine Turbidity Urine pH Ur Specific [place] Urine Protein Ur Glucose (Stick) Ur Ketones (Stick) Urine Blood Urine Nitrite Urine Bilirubin Urobilinogen Dipstick Urine Leukocytes Urine WBC (Auto) Urine RBC (Auto) U Epithel Cells (Auto) Urine Bacteria (Auto) Urine Opiates Screen Ur Oxycodone Screen Ur Methadone, Qual Ur Barbiturates Screen Ur Phencyclidine Scrn Ur Amphetamines Screen U Benzodiazepines Scrn Urine Cocaine Screen U Cannabinoids Screen Blood Type Antibody Screen 03/31/17 03/31/17 03/31/17 11:08 11:08 11:08 WBC RBC Hgb Hct MCV MCH MCHC RDW Std Deviation Plt Count MPV Immature Gran % (Auto) Neut % (Auto) Lymph % (Auto) [place] % (Auto) Eos % (Auto) Baso % (Auto) Immature Gran # (Auto) Neut # (Auto) Lymph # (Auto) [place] # (Auto) Eos # (Auto) Baso # (Auto) PT INR PTT (Actin FS) Sodium Potassium Chloride Carbon Dioxide Anion Gap BUN Creatinine Estimated GFR/1.73 m2 BUN/Creatinine Ratio Glucose Calculated Osmolality Calcium Total Bilirubin AST ALT Alkaline Phosphatase Creatine Kinase 19 L Troponin T < 0.010 Total Protein Albumin Globulin Albumin/Globulin Ratio Plasma Lactate Urine Source Urine Color Urine Turbidity Urine pH Ur Specific [place] Urine Protein Ur Glucose (Stick) Ur Ketones (Stick) Urine Blood Urine Nitrite Urine Bilirubin Urobilinogen Dipstick Urine Leukocytes Urine WBC (Auto) Urine RBC (Auto) U Epithel Cells (Auto) Urine Bacteria (Auto) Urine Opiates Screen Ur Oxycodone Screen Ur Methadone, Qual Ur Barbiturates Screen Ur Phencyclidine Scrn Ur Amphetamines Screen U Benzodiazepines Scrn Urine Cocaine Screen U Cannabinoids Screen Blood Type O POSITIVE Antibody Screen NEGATIVE 03/31/17 03/31/17 03/31/17 12:00 12:52 12:52 WBC RBC Hgb Hct MCV MCH MCHC RDW Std Deviation Plt Count MPV Immature Gran % (Auto) Neut % (Auto) Lymph % (Auto) [place] % (Auto) Eos % (Auto) Baso % (Auto) Immature Gran # (Auto) Neut # (Auto) Lymph # (Auto) [place] # (Auto) Eos # (Auto) Baso # (Auto) PT INR PTT (Actin FS) Sodium Potassium Chloride Carbon Dioxide Anion Gap BUN Creatinine Estimated GFR/1.73 m2 BUN/Creatinine Ratio Glucose Calculated Osmolality Calcium Total Bilirubin AST ALT Alkaline Phosphatase Creatine Kinase Troponin T Total Protein Albumin Globulin Albumin/Globulin Ratio Plasma Lactate 1.6 Urine Source CLEAN CATCH Urine Color YELLOW Urine Turbidity CLEAR Urine pH 5.5 Ur Specific [place] 1.017 Urine Protein 30 A Ur Glucose (Stick) NEGATIVE Ur Ketones (Stick) NEGATIVE Urine Blood NEGATIVE Urine Nitrite NEGATIVE Urine Bilirubin NEGATIVE Urobilinogen Dipstick NORMAL Urine Leukocytes NEGATIVE Urine WBC (Auto) <10 Urine RBC (Auto) <10 U Epithel Cells (Auto) <10 Urine Bacteria (Auto) NEGATIVE Urine Opiates Screen PRESUMPTIVE POSITIVE A Ur Oxycodone Screen NONE DETECTED Ur Methadone, Qual NONE DETECTED Ur Barbiturates Screen NONE DETECTED Ur Phencyclidine Scrn NONE DETECTED Ur Amphetamines Screen NONE DETECTED U Benzodiazepines Scrn NONE DETECTED Urine Cocaine Screen NONE DETECTED U Cannabinoids Screen NONE DETECTED Blood Type Antibody Screen Orders Category Date Time Status Saline Loc DIRECTED Care 03/31/17 11:[address] HEAD W/O CONTRAST [CT] Stat Exams 03/31/17 13:55 Ordered BLOOD CULTURE [BLDCUL] Stat Lab 03/31/17 12:00 Results CBC WITH DIFF [HEME] Stat Lab 03/31/17 11:08 Completed CK PROFILE [SP CHEM] Stat Lab 03/31/17 11:08 Completed COMPREHENSIVE METABOLIC PANEL [CHEM] Stat Lab 03/31/17 11:08 Completed LACTATE, PLASMA [CHEM] Stat Lab 03/31/17 12:00 Completed OCCULT BLOOD SCREENING [STOOL] Stat Lab 03/31/17 11:47 Completed PROTIME WITH INR [COAG] Stat Lab 03/31/17 11:08 Completed PTT [COAG] Stat Lab 03/31/17 11:08 Completed TROPONIN T Stat Lab 03/31/17 11:08 Completed TYPE & SCREEN [BBK] Stat Lab 03/31/17 11:08 Completed UA NIMS W/REFLEX CULT [URINALYSIS] Stat Lab 03/31/17 12:52 Completed UDS [URINE DRUG SCREEN] Stat Lab 03/31/17 12:52 Completed 0.9% Sodium Chloride Inj [Ns] 1,000 ml Med 03/31/17 11:28 Discontinued IV 999 mls/hr EKG [EKG] Stat Ther 03/31/17 10:48 Draft Reviewed joe, radiology, H&P with , agrees with plan of care, treatment, admission, notified family and pt, agree and verbalize understanding. Result Diagrams: 03/31/17 11:08 03/31/17 11:08 - XRAY 1 XRAY Study: Chest Impression: Abnormal (multiple septic emboli that were not present on CXR last week. per Dr. Lundberg.) - CONSULTS/PCP/HOSPITALIST Notification #1 *Consult/PCP/Hospitalist*: Hardeep Time Discussed: 13:56 Consult Disposition: Will see in ED, Admit Departure - Departure Date of Disposition Decision: 03/31/17 Time of Disposition Decision: 13:54 DIAGNOSIS: Weakness, Anemia Disposition: ADMITTED INPATIENT 09 Certified Medical Emergency: Emergent Condition: Stable - Critical Care Note This patient required my direct & personal management of CC.: No Attestation - Physician/ ENMA Attestation Patient care was provided by Advanced Practice Provider:: Yes Advanced Practice Provider:: Ann Marie Prieto Advanced Practice Provider documentation review:: The Mid-level provider documentation, treatment plan and medical decision making was reviewed by the physician who agrees with all treatment and medical decision making by the MLP. The physician spent face to face time with patient:: No Advanced Practice Provider documentation review:: Supervising physician onsite and consulted in the evaluation and care of this patient. The physician did not have a face to face encounter with the patient.
[2017-03-31 11:44] LABS: MANUAL DIFF NEEDED? NO
[2017-03-31 11:53] LABS: BASO% 0.4 % (0.0-0.8); EOS# 0.17 X1000 (0.0-0.7); EOS% 1.6 % (0.0-10.0); HEMATOCRIT 28.8 % (42.0-52.0); HEMOGLOBIN 9.2 g/dL (14.0-18.0); IMM GRAN# 0.04 X1000 (0.0-0.04); IMM GRAN% 0.4 % (0.0-0.5); LYMPH# 2.17 X1000 (1.2-3.4); LYMPH% 20.5 % (20.5-51.1); MCH 26.4 PG (27-31); MCHC 31.9 g/dL (33-37); MCV 82.8 FL (81-99); MONO# 1.34 X1000 (0.11-0.59); MONO% 12.7 % (1.7-9.3); MPV 9.5 FL (7.4-10.4); NEUT% 64.4 % (42.2-75.2); PLT 457 X1000 (130-400); RBC 3.48 XMIL (4.7-6.1)
[2017-03-31 12:05] LABS: PROTIME 10.5 Seconds (9.2-11.7)
[2017-03-31 12:16] LABS: AGAP 14; ALBUMIN 3.8 g/dL (3.5-5.0); ALKALINE PHOSPHATASE 77 U/L (32-122); BUN 14 mg/dL (8-22); CHLORIDE 102 mmol/L (98-107); COSMO 276; GOT 17 U/L (10-34); GPT 9 U/L (10-44); POTASSIUM 4.2 mmol/L (3.5-5.1); SODIUM 138 mmol/L (136-145); TCO2 22 mmol/L (25-35); TOTAL BILIRUBIN 0.23 mg/dL (0.20-1.00); TOTAL PROTEIN 7.4 g/dL (6.3-8.3)
[2017-03-31 13:05] LABS: URINE CULTURE NEEDED? NO; URINE MICRO REVIEW NEEDED? NO; URINE SOURCE CLEAN CATCH
[2017-03-31 13:10] LABS: BILIRUBIN URINE NEGATIVE (NEGATIVE); BLOOD URINE NEGATIVE (NEGATIVE); COLOR YELLOW; GLUCOSE URINE NEGATIVE (NEGATIVE); LEUKOCYTES URINE NEGATIVE (NEGATIVE); NITRITE URINE NEGATIVE (NEGATIVE); PH URINE 5.5; PROTEIN URINE 30 mg/dL (NEGATIVE); SP GRAVITY URINE 1.017; TURBIDITY URINE CLEAR (CLEAR); UROBILINOGEN URINE NORMAL (NORMAL)
[2017-03-31 13:11] LABS: UR EPITHELIAL CELLS <10 /HPF (<10); URINE BACTERIA NEGATIVE /HPF; URINE RBC <10 /HPF (<10); URINE WBC <10 /HPF (<10)
[2017-03-31 13:20] LABS: UR AMPHETAMINES QUAL NONE DETECTED (NONE DETECT); UR BARBITUATES QUAL NONE DETECTED (NONE DETECT); UR BENZODIAZEPIN QUAL NONE DETECTED (NONE DETECT); UR CANNABINOIDS QUAL NONE DETECTED (NONE DETECT); UR COCAINE QUAL NONE DETECTED (NONE DETECT); UR METHADONE QUAL NONE DETECTED (NONE DETECT); UR OPIATES QUAL PRESUMPTIVE POSITIVE (NONE DETECT); UR OXYCODONE QUAL NONE DETECTED (NONE DETECT); UR PCP QUAL NONE DETECTED (NONE DETECT)
--- NOTE | 2017-03-31 13:20 | ED EKG INTERP ---
This chart was entered by Kelly Molina Scribe, acting as scribe for Armando Vigil MD. EKG Interpretation - EKG Time of EKG reading by physician:: 10:57 EKG Read and Signed by:: Armando Vigil EKG Interpretation (*Must complete 3 of following elements*): Abnormal Rate: 63 Rhythm: sinus rhythm w/ 1st degree AV block [place]: normal QRS: other (left anterior fascicular block) [place] Interval: normal ST Wave: normal Attestation - Physician/ ENMA Attestation The physician spent face to face time with patient:: Yes Advanced Practice Provider documentation review:: Supervising physician onsite and consulted in the evaluation and care of this patient. The physician did have a face to face encounter with the patient. This chart was documented by the indicated scribe, (Kelly Molina Scribe) and accurately reflects the services I performed and decisions made by Yaritza mcgovern Christophe I, MD, as attested by the provider's signature.
--- NOTE | 2017-03-31 15:12 | Diag Imaging Result Doc PS360 ---
EXAM: CT HEAD W/O CONTRAST HISTORY: weakness TECHNIQUE: CT brain without contrast. Dose reduction protocol. COMPARISON: None. FINDINGS: No parenchymal hemorrhage. No epidural or subdural hematoma. No subarachnoid hemorrhage. No mass identified on this noncontrasted exam. No hydrocephalus. There is mild atrophy. Minimal microvascular ischemic changes. No sinus opacification. IMPRESSION: No hemorrhage. Mild atrophy with mild microvascular ischemic changes. Electronically signed by Rupert Drake 03/31/2017 3:09 PM
[2017-03-31] MEDS ORDERED: ZOFRAN IV PRN (15:22)
[2017-03-31] MEDS ORDERED: TYLENOL PO PRN (15:22)
[2017-03-31] MEDS: NS 1,000 ML IV SCH (16:27)
[2017-03-31] MEDS: MEGACE LIQUID PO SCH (16:28)
[2017-03-31] MEDS: NORCO-10 PO PRN (17:28)
--- NOTE | 2017-03-31 18:04 | HISTORY AND PHYSICAL ---
PRIMARY CARE PROVIDER: Demetrio Aragon MD. PRIMARY ONCOLOGIST: Kvng Kaminski MD. CHIEF COMPLAINT: Fall with L1 compression fracture and hypotension. HISTORY OF PRESENT ILLNESS: Mr. Majano is a 62-year-old, male with a medical history of multiple myeloma followed by Dr. Kaminski. He apparently went to see Dr. Kaminski yesterday. Today was sent for a skeletal survey. Prior to having the skeletal survey performed, in admissions he fell. He did not pass out. He just fell. Then he went to have his skeletal survey prior to going to the ER. The skeletal survey revealed a stable lytic disease in the calvaria. Stable findings in the bony pelvis, but showed a new compression fracture of L1 which may be pathologic. He was then sent to the ER. Was found to have a blood pressure that was low at 74/48, which responded very well to 1 L IV bolus and now is running anywhere from 113-134 systolic. Will admit to the medical floor. Do strict bed rest. Log roll and consult Ortho. Will also consult Dr. Kaminski. PAST MEDICAL HISTORY: Multiple myeloma, GERD, anemia, chronic pain syndrome. Tachycardia, which he takes diltiazem for. Family was not extremely sure about if there was a different rhythm. Pneumonia. SURGICAL HISTORY: None. FAMILY HISTORY: Father had bone cancer. SOCIAL HISTORY: Denies tobacco, alcohol or illicit drug use. ALLERGIES: No known drug allergies. HOME MEDICATIONS: Diclofenac sodium 100 g topical. Diltiazem 180 mg p.o. daily. Neurontin 300 mg p.o. t.i.d., [place] 10 mg 1 tab p.o. every 6 hours p.r.n., Megace 400 mg t.i.d., Robaxin 750 mg 1-2 tabs p.o. t.i.d. p.r.n., nystatin p.o. every 6 hours. Omeprazole 20 mg p.o. daily. Protonix 40 mg p.o. daily. Spironolactone 25 mg p.o. daily p.r.n. REVIEW OF SYSTEMS: Fourteen point review of systems were complete and all were negative except for those mentioned above in HPI. He does claim to have pain in his lower back now. PHYSICAL EXAMINATION: VITAL SIGNS: Temperature 98.7, heart rate 76, respiratory rate 14, blood pressure 120/73, O2 saturation 100% on room air. He is 5 feet 10 inches tall, 116 pounds. BMI 16.7. GENERAL: Mr. Jabari Majano is a 62-year-old male. He is in no acute distress. He is able to answer questions appropriately. HEENT: Atraumatic, normocephalic. Pupils equal, round, reactive to light. Extraocular movements intact. Mucous membranes are dry. NECK: No JVD or carotid bruits noted. CARDIOVASCULAR: S1, S2. Regular rate and rhythm. No rubs, gallops, murmurs. PULMONARY: Clear to auscultation. Bilateral breath sounds. No accessory muscle use or work of breathing noted. GI: Soft, with mild tenderness in epigastric region, but soft. Positive bowel sounds x4. EXTREMITIES: No edema noted. +2 dorsalis and radial pulses. Sensation intact in the lower extremities with range of motion intact. NEUROLOGIC: Alert and oriented x4. Moves all extremities equally. SKIN: Warm, dry, intact. LABORATORY DATA: White blood cells 10,000, hemoglobin 9, hematocrit 28, platelet count 457. INR 1.00. PTT is 31. Sodium 138, potassium 4.2, BUN 14, creatinine is 1.3. Glucose 88, calcium 10, bilirubin 0.23. AST 17, ALT 9. CK 19, troponin less than 0.01. Lactate 1.6. Urinalysis 30 protein, otherwise negative. Urine drug screen positive opiates. IMAGING: A skeletal survey which is located on another account number. Impression is stable lytic disease in the calvaria. Stable findings in the bony pelvis. New compression fracture of L1 which may be pathologic. Head CT: No hemorrhage, mild atrophy with mild microvascular ischemic changes. EKG: Sinus rhythm with a first-degree AV block, rate of 63. ASSESSMENT AND PLAN: 1. Multiple myeloma, followed by Dr. Kaminski. 2. New L1 compression fracture. Oncology consulted. Will log roll for now. Strict bed rest. Range of motion and sensation is intact in bilateral lower extremities. 3. Gastroesophageal reflux disease. Continue proton pump inhibitor. 4. Anemia, currently stable. 5. History of tachycardia, takes diltiazem at home. 6. Chronic pain syndrome. Continue home medications. 7. Apparently has had a 20 pound weight loss since October. He has had no appetite, significant fatigue and weakness. So severe protein calorie malnutrition. We will continue with Megace. 8. Irritable bowel syndrome. Goes between constipation and diarrhea. Last bowel movement was today. 9. Deep venous thrombosis prophylaxis. Sequential compression devices. Dictated by MELISA Mancera for Payton Escalante MD cc: MELISA Mancera MD Naveen T. Lobo, MD Wayne E. Thomas, MD
--- NOTE | 2017-03-31 18:12 | Diag Imaging Result Doc PS360 ---
EXAM: CHEST-2 VIEWS HISTORY: r/o pna TECHNIQUE: Two views COMPARISON: 02/03/2017 FINDINGS: The lungs are well expanded. The heart is not enlarged. The vessels are not distended. There are no infiltrates. No pleural effusions. IMPRESSION: No pneumonia. Electronically signed by Rupert Drake 03/31/2017 6:09 PM
[2017-04-01] MEDS: NORCO-10 PO PRN (02:24)
[2017-04-01] MEDS: NS 1,000 ML IV SCH (05:57)
[2017-04-01] MEDS: PROTONIX PO SCH (06:00)
[2017-04-01] MEDS: OXY IR PO PRN ×4 (06:14→20:02)
[2017-04-01 06:46] LABS: MANUAL DIFF NEEDED? NO
[2017-04-01 07:00] LABS: BASO% 0.3 % (0.0-0.8); EOS# 0.19 X1000 (0.0-0.7); EOS% 2.1 % (0.0-10.0); HEMATOCRIT 23.6 % (42.0-52.0); HEMOGLOBIN 7.5 g/dL (14.0-18.0); IMM GRAN# 0.02 X1000 (0.0-0.04); IMM GRAN% 0.2 % (0.0-0.5); LYMPH# 2.69 X1000 (1.2-3.4); LYMPH% 29.7 % (20.5-51.1); MCH 26.2 PG (27-31); MCHC 31.8 g/dL (33-37); MCV 82.5 FL (81-99); MONO# 0.86 X1000 (0.11-0.59); MONO% 9.5 % (1.7-9.3); MPV 9.6 FL (7.4-10.4); NEUT% 58.2 % (42.2-75.2); PLT 437 X1000 (130-400); RBC 2.86 XMIL (4.7-6.1)
[2017-04-01 07:03] LABS: INR 1.01; PROTIME 10.6 Seconds (9.2-11.7); PTT 29.3 Seconds (22.0-36.0); RETIC% 0.79 % (0.8-2.1); RETIC-HE 33.6 PG (28.2-36.6)
[2017-04-01 07:23] LABS: IRON SATURATION 24 %; TIBC 168 ug/dL; TOTAL IRON 40 ug/dL (53-167); UNBOUND IRON 128 ug/dL (112-346)
[2017-04-01 07:27] LABS: AGAP 14; ALBUMIN 3.5 g/dL (3.5-5.0); ALKALINE PHOSPHATASE 71 U/L (32-122); BUN 11 mg/dL (8-22); CALCIUM 8.9 mg/dL (8.8-10.2); CHLORIDE 107 mmol/L (98-107); COSMO 278; GOT 11 U/L (10-34); GPT 7 U/L (10-44); MAGNESIUM 2.1 mg/dL (1.5-2.7); POTASSIUM 4.1 mmol/L (3.5-5.1); SODIUM 140 mmol/L (136-145); TCO2 19 mmol/L (25-35); TOTAL BILIRUBIN 0.16 mg/dL (0.20-1.00); TOTAL PROTEIN 6.8 g/dL (6.3-8.3)
--- NOTE | 2017-04-01 07:38 | EKG Report ---
Test Performed on : 04/01/2017 06:19:29 AM Test Reason : chest pain Blood Pressure : / mmHG Vent. Rate : 077 BPM Atrial Rate : 077 BPM P-R Int : 198 ms QRS Dur : 102 ms QT Int : 400 ms P-R-T Axes : 063 -63 067 degrees QTc Int : 452 ms Normal sinus rhythm. Left anterior fascicular block Abnormal ECG When compared with ECG of 31-MAR-2017 10:57, (Unconfirmed) OH interval has decreased T wave amplitude has decreased in V2 Confirmed by Chalo Melendez DO ([id number]) on 04/03/2017 12:42:10 PM
[2017-04-01 07:53] LABS: VITAMIN D 25 HYDROXY 50.7 NG/DL
[2017-04-01] MEDS: LOVENOX SUBQ SCH (10:22)
[2017-04-01] MEDS: MEGACE LIQUID PO SCH ×3 (10:22→18:45)
--- NOTE | 2017-04-01 11:25 | Diag Imaging Result Doc PS360 ---
EXAM: CT LUMBAR SPINE W/WO CONTRAST INDICATION: L1 compression fracture COMPARISON: None. FINDINGS: There are innumerable lytic lesions seen throughout the entire lumbar spine, the visualized sacrum, and lower thoracic spine consistent with known multiple myeloma. There is a compression deformity at L1 that was noted on a recent skeletal survey as being new since 2016. However, review of a prior CT of the abdomen and pelvis dated 02/03/2017 shows that the compression deformity was present at that time and it is stable. There is stable milder height loss and Schmorl's node formation at every lumbar level except for L3. Given the innumerable lytic lesions, these are assumed to represent pathologic fractures. At L1, there is mild retropulsion of bony fragments causing mild narrowing of the central canal. This appears stable as compared to the abdominal CT from 2017. There are broad-based disc osteophyte causing mild central canal narrowing at several other levels that appear stable. There is no definite acute fracture or subluxation. There is no abnormal enhancement identified in the surrounding soft tissues. IMPRESSION: 1.Diffuse skeletal multiple myeloma. 2.Vertebral body height loss and Schmorl's node formation at most of the lumbar levels that is most significant at L1. However, this is stable as compared to a prior CT of the abdomen and pelvis dated 02/03/2017. Please see above discussion. Electronically signed by Mata Red 04/01/2017 11:23 AM
--- NOTE | 2017-04-01 12:31 | CONSULTATION ---
DATE OF CONSULTATION: 04/01/2017 REASON FOR CONSULT: The patient has IgA lambda multiple myeloma with multiple bone metastases. HISTORY OF PRESENT ILLNESS: This is a patient is known to us with IgA lambda multiple myeloma and multiple bone metastases. He completed Revlimid, Velcade and Decadron, and he declined transplant evaluation. He is currently on maintenance Velcade 3 weeks out of 4. He came to the hospital yesterday for a skeletal survey evaluation, which was overdue because the patient is quite noncompliant, and had missed his appointment for it. The skeletal survey showed stable lytic disease in the calvarium and stable findings in the bony pelvis, and compression fractures at T11 and L1, so there was a question of a possible new compression fracture of L1, which may be pathologic. However it was compared to a October 2015 study. Patient also fell, he did not black out. Further evaluation showed that he was quite hypotensive, blood pressure in the 70/40 range and gave him some normal saline and it is normalized. He has since been admitted for further evaluation. Orthopedics has been consulted. However in one of our other previous imaging on the patient, looking at a 03/29/[address], also performed Danial Khanna, there was a new compression fracture at L1 at that time. When we saw patient in the clinic at that time and ever since then, he has been asymptomatic, however we did refer him to Dr. Amor in [place], and patient continued to be a no-show with Dr. Amor; again, that was approximately a year ago. Patient denies any fevers, chills, new lumps , bumps, bone pain. His weight has been down due to some anorexia. He has been on Megace and Coumadin as well for thrombosis prophylaxis. He denies any dizziness, new lumps or bumps. He has chronic bone pain that is stable. All other review of systems negative. REVIEW OF SYSTEMS: Negative unless indicated in the HPI. ALLERGIES: No known drug allergies. PAST MEDICAL HISTORY: Multiple myeloma with bony metastases. He is on Zometa per protocol. He has had a known at T11 and L1 fracture. The L1 fracture was noted last year on a CT. The patient was referred to orthopedics and he never went. He also has a history of chronic pain. He has a history of Klebsiella sepsis with hypogammaglobulinemia, s/p 1 dose of IVIG. FAMILY AND SOCIAL HISTORY: The patient has good family support. Denies tobacco , alcohol or illicit drugs. HOME MEDICATIONS: 1. Diltiazem. 2. Neurontin. 3. [place]. 4. Megace. 5. Robaxin. 6. Valacyclovir. PHYSICAL EXAMINATION: Vital Signs: Stable. General: This is an male who is in no acute distress. HEENT: Head is normocephalic, atraumatic. Pupils equal, round, symmetric. Trachea is midline. Cardiovascular: S1, S2 audible on auscultation with no heaves, lifts, thrills, or murmurs. Pulmonary: Breath sounds clear to auscultation. Normal respiratory effort. Abdomen: Soft, nondistended. Positive bowel sounds. Extremities: No edema noted and patient moves all extremities. Neurologic: Alert and oriented x3. Psychiatric: Appropriate to the situation. DIAGNOSTIC DATA: Imaging as above. WBC 9.07 hemoglobin 7.5, after receiving 1 L normal saline. Hematocrit 23.6, platelet count is 437,000. Sodium 140, potassium 4.1, BUN 11, creatinine 1.0. ASSESSMENT AND PLAN: 1. IgA lambda multiple myeloma. The skeletal survey is stable. His SPEP has been stable. He is on maintenance Velcade 3 weeks on and 1 week off. 2. Bone metastases. He has been on Zometa per protocol, with again stable skeletal survey as above. 3. L1 compression fracture, as well as T11 compression fracture. Again, these were seen on an 03/29/2016 CT abdomen and pelvis performed at [facility]. We referred patient to Dr. Amor, and he was a no-show to those appointments. He has been asymptomatic as well. Orthopedics has been consulted for this hospitalization. 4. Chronic pain. Continue narcotics per primary team. 5. Anorexia with weight loss. The patient remains on Megace. 6. Deep vein thrombosis prophylaxis with Lovenox. 7. History of Klebsiella sepsis with hypogammaglobulinemia. The patient's last IgG level was normal. We had referred him to Dr. Peck for that and he did not keep that appointment. 8. History of noncompliance. Dictated by MELISA Long for Kvng Kaminski MD cc: MELISA Long MD [facility]
--- NOTE | 2017-04-01 18:05 | PROGRESS NOTE ---
DATE: 04/01/2017 SUBJECTIVE: This patient states that he is feeling better, he is complaining of mild cough and weakness. Apparently this patient fell yesterday and his blood pressure was low at 74/48. After fluid resuscitation his blood pressure has been in 110s with 120s and sometimes 130s. Oncology Department already evaluated this patient pending Orthopedic Surgery Department evaluation and recommendation. OBJECTIVE: Vital Signs: Temperature 97.8 degrees, pulse 88, respiratory rate 20, blood pressure 136/81, oxygen saturation 99 on room air. HEENT: Head normocephalic. No trauma. PERRLA. Neck: Supple. No JVD. No masses. Central trachea. Chest: Clear to auscultation. No wheezing. No rales. Abdomen: Soft, nontender, nondistended. No hepatosplenomegaly. Extremities: No edema. No clubbing. No cyanosis. Decreased muscle mass. Neurological: The patient is alert and oriented x3. No focal deficits. LABORATORY: WBC 9, hemoglobin 7.5, hematocrit 23.6, platelets 437,000. Sodium 140, potassium 4.1, chloride 107, bicarbonate 19, BUN 11, creatinine 1, glucose 83, calcium 8.9. ASSESSMENT AND PLAN: 1. L1 compression fracture. Oncology and Orthopedic surgery consulted. I do believe this is an old lesion, pending Orthopedic Surgery evaluation and recommendation. Hopefully today or tomorrow I will be able to discharge this patient home. 1. Multiple myeloma followed by Dr. Kaminski. 2. Gastroesophageal reflux disease. Continue on PPIs. 3. Anemia. The hemoglobin dropped from 9.2 to 7.5, I will monitor the hemoglobin and hematocrit tomorrow and I will transfuse this patient as needed. 4. History of tachycardia. Continue with diltiazem. 5. Chronic pain syndrome. Continue with home medication. 6. Severe protein calorie malnutrition. Continue with Megace and diet. 7. Irritable bowel syndrome aware. Will monitor. 8. Deep vein thrombosis prophylaxis with SCDs. cc: Ventura Schneider MD
[2017-04-02] MEDS: PROTONIX PO SCH (06:14)
[2017-04-02] MEDS: OXY IR PO PRN ×2 (06:14→09:32)
[2017-04-02 07:18] LABS: MANUAL DIFF NEEDED? NO
[2017-04-02 07:24] LABS: BASO% 0.1 % (0.0-0.8); EOS# 0.08 X1000 (0.0-0.7); HEMOGLOBIN 8.1 g/dL (14.0-18.0); IMM GRAN# 0.02 X1000 (0.0-0.04); IMM GRAN% 0.3 % (0.0-0.5); LYMPH# 2.24 X1000 (1.2-3.4); LYMPH% 29.3 % (20.5-51.1); MCH 26.5 PG (27-31); MCHC 32.4 g/dL (33-37); MCV 81.7 FL (81-99); MONO% 15.7 % (1.7-9.3); MPV 8.9 FL (7.4-10.4); NEUT% 53.6 % (42.2-75.2); PLT 374 X1000 (130-400); RBC 3.06 XMIL (4.7-6.1)
[2017-04-02 07:31] VITALS: BP 129/74
[2017-04-02 07:37] LABS: AGAP 11; ALBUMIN 3.2 g/dL (3.5-5.0); ALKALINE PHOSPHATASE 63 U/L (32-122); BUN 9 mg/dL (8-22); CALCIUM 9.1 mg/dL (8.8-10.2); CHLORIDE 103 mmol/L (98-107); COSMO 272; GOT 11 U/L (10-34); GPT 7 U/L (10-44); POTASSIUM 3.9 mmol/L (3.5-5.1); SODIUM 137 mmol/L (136-145); TCO2 23 mmol/L (25-35); TOTAL BILIRUBIN < 0.10 mg/dL (0.20-1.00); TOTAL PROTEIN 6.3 g/dL (6.3-8.3)
[2017-04-02] MEDS: MEGACE LIQUID PO SCH (09:31)
[2017-04-02] MEDS: LOVENOX SUBQ SCH (09:32)
--- NOTE | 2017-04-02 09:51 | PROGRESS NOTE ---
DATE: 04/01/2017 SUBJECTIVE: Review of the CT scan revealed multiple lytic lesions throughout the sacrum and lower thoracic spine, known multiple myeloma, compression fracture L1 which was also visualized on the CT scan of the abdomen and pelvis on 02/03/2017 and stable fracture. Discussed the findings with the patient, and he is stable from an orthopedic standpoint. I would recommend followup with neurosurgery next week. All questions were answered. cc: Umesh Kiran MD
--- NOTE | 2017-04-03 05:22 | DISCHARGE SUMMARY ---
ADMISSION DATE: 03/31/2017 DISCHARGE DATE: 04/02/2017 DISCHARGE DIAGNOSES: 1. Multiple myeloma, followed by Dr. Kaminski. 2. Dehydration with acute kidney injury, resolved. 3. Anemia of chronic disease. 4. History of tachycardia. 5. Chronic pain syndrome. 6. Severe protein calorie malnutrition. 7. Irritable bowel syndrome. CONSULTS: Dr. Kaminski and orthopedic surgery, Dr. Kiran. HOSPITAL COURSE: A 62-year-old, -[place] male with a past medical history of multiple myeloma followed by Dr. Kaminski. Admitted on 03/31/2017 because he fell. He did not pass out but apparently he was a little bit dizzy. He had a skeletal survey prior to going to the emergency department and this revealed a stable lytic disease in the calvarium. Stable findings in the bony pelvis but showed a fracture at the level of L1 that also has been there before. At the emergency department, he was found to have a low blood pressure at 74/48, which responded very well with IV boluses. This patient was hospitalized on the medical floor with telemetry. We monitored the blood pressure every single day. He was also admitted and he presented with acute kidney injury that resolved after IV hydration. This patient was feeling fine. This is why we decided to discharge this patient today with strict followup by his primary care doctor and also by Dr. Kaminski. Orthopedic surgery department evaluated this patient's lesions at the level of the spine and they suggested to see a neurosurgeon in the future. This patient is stable. He was tolerating p.o. and ambulating. PHYSICAL EXAMINATION: Vital Signs: Temperature 98.4 degrees, pulse 71, respiratory rate 13, blood pressure 129/74, oxygen saturation 99 on room air. HEENT: Head normocephalic. No trauma. PERRLA. Neck: Supple. No JVD. No masses. Central trachea. Chest: Clear to auscultation. No wheezing. No rales. Abdomen: Soft, nontender, nondistended. No hepatosplenomegaly. Extremities: No edema. No clubbing. No cyanosis. Decreased muscle mass. Neurological: The patient is alert and oriented x3. No focal neurological deficits. LABORATORY: WBC 7.6, hemoglobin 8.1, hematocrit 25.8, platelets 374,000. Sodium 137, potassium 3.9, chloride 103, bicarbonate 23, BUN 9, creatinine 0.7, glucose 94, calcium 9.1. Albumin 3.2. FOLLOWUP: Followup by Dr. Kaminski as scheduled and also followup by his primary care doctor in 1 week. Orthopedic surgery suggested to follow up with neurosurgery department to evaluate his spine. DISCHARGE MEDICATIONS: Spironolactone 25 mg p.o. daily, omeprazole 20 mg p.o. daily, nystatin 1 tablespoon p.o. q.6 hours, methocarbamol 1-2 tablets p.o. t.i.d., Megace 1 mL p.o. t.i.d., gabapentin 300 mg p.o. t.i.d., diltiazem 100 mg p.o. daily, diclofenac 1 each top as directed, and Ponce 10 one tablet p.o. q.6 hours p.r.n. TIME DISCHARGING THIS PATIENT: 40 minutes. cc: Ventura Schneider MD
== END 2017-04-02 12:10 | disposition home or self-care (01) ==
LOC: ED 10:30 → SUATTDRO 15:17 → 3N 15:17
PROVIDERS: ATTEND Internal Medicine

== ENCOUNTER 2018-09-20 10:38 | Inpatient (IN) ==
[2018-09-20 11:55] LABS: BASO# 0.25 X1000 (0.0-0.2); EOS# 0.32 X1000 (0.0-0.7); EOS% 1.3 % (0.0-10.0); HEMATOCRIT 27.5 % (42.0-52.0); HEMOGLOBIN 8.7 g/dL (14.0-18.0); IMM GRAN# 2.75 X1000 (0.0-0.04); IMM GRAN% 11.3 % (0.0-0.5); LYMPH# 2.43 X1000 (1.2-3.4); MCH 29.3 PG (27-31); MCHC 31.6 g/dL (33-37); MCV 92.6 FL (81-99); MONO# 2.23 X1000 (0.11-0.59); MONO% 9.2 % (1.7-9.3); NEUT# 16.37 X1000 (1.4-6.5); NEUT% 67.2 % (42.2-75.2); PLT 212 X1000 (130-400); RBC 2.97 XMIL (4.7-6.1); RDW 15.9 % (11.5-14.5); WBC 24.35 X1000 (4.8-10.8)
--- NOTE | 2018-09-20 12:00 | Diag Imaging Result Doc PS360 ---
EXAM: CHEST-1 VIEW HISTORY: possible sepsis TECHNIQUE: Chest single view COMPARISON: 05/20/2018 FINDINGS: The lungs are well expanded. The heart is not enlarged. The vessels are not distended. There are no infiltrates. No effusion identified. IMPRESSION: No pneumonia. Electronically signed by Rupert Drake 09/20/2018 11:58 AM
[2018-09-20 12:05] LABS: ALB/GLOB RATIO 0.5; ALBUMIN 2.8 g/dL (3.5-5.0); CALCIUM 9.9 mg/dL (8.8-10.2); CREATININE 4.3 mg/dL (0.7-1.2); MAGNESIUM 2.6 mg/dL (1.5-2.7); POTASSIUM 4.4 mmol/L (3.5-5.1); TOTAL BILIRUBIN 2.83 mg/dL (0.20-1.00); TOTAL PROTEIN 8.6 g/dL (6.3-8.3)
[2018-09-20 12:14] LABS: INR 1.26; PROTIME 16.7 Seconds (11.0-16.0)
[2018-09-20 12:16] LABS: PTT 42.4 Seconds (22.3-41.8)
[2018-09-20 12:28] LABS: BANDS 12 % (0-1); EOS 4 % (1-10); LYMPHS 6 % (21-51); MONO 6 % (1-9); SEGS 60 % (42-75)
[2018-09-20 12:29] LABS: LARGE PLATELETS 2+
[2018-09-20 12:41] LABS: CK INDEX 0.6 (0.0-2.5); CK-MB 2.04 ng/mL (0.0-5.0)
[2018-09-20] MEDS ORDERED: NS 1,000 ML IV ONE (14:54)
[2018-09-20] MEDS ORDERED: ZOSYN 3.375 GM in NS 50 ML IV ONE (14:54)
[2018-09-20] MEDS ORDERED: MORPHINE IV ONE (14:54)
[2018-09-20] MEDS ORDERED: ZOFRAN IV ONE (14:54)
--- NOTE | 2018-09-20 15:39 | Diag Imaging Result Doc PS360 ---
EXAM: CT ABDOMEN/PELVIS W/O CONTRAST INDICATION: RUQ pain, multiple myeloma, renal failure with RUQ TECHNIQUE: This exam was performed using automated exposure control, adjustment of mA or kV according to patient size, and/or use of iterative reconstruction technique. COMPARISON: 02/03/2017 FINDINGS: There is subsegmental atelectasis at the lung bases. There is a tiny stable hypodense lesion in the anteromedial right hepatic lobe that probably represents a small cyst. The liver is unremarkable, otherwise. The gallbladder, spleen, pancreas, and adrenal glands are unremarkable. The kidneys and urinary bladder are unremarkable. The appendix is normal. There is a tiny sliding hiatal hernia. The GI tract is essentially unremarkable, otherwise. There are innumerable lytic lesions seen throughout the spine, pelvis, and sacrum that are consistent with known multiple myeloma. This is approximately stable. IMPRESSION: 1.Innumerable bony lytic lesions that are very similar to the previous study consistent with multiple myeloma. 2.Other external/nonacute findings detailed above. No definite acute abdominal or pelvic pathology, otherwise. Electronically signed by Mata Red 09/20/2018 3:37 PM
--- NOTE | 2018-09-20 16:06 | PROVIDER DOCUMENTATION ---
This chart was entered by Sena Reese Scribe, acting as scribe for Ole Yang MD. HPI-General Adult - General Chief Complaint: Abnormal Lab[s] Stated Complaint: WEAKNESS,KIDNEY FAILURE/CANCER Time Seen by Provider: 09/20/18 14:36 Source: patient, family () Allergies/Adverse Reactions: Patient Allergies Allergy/AdvReac Type Severity Reaction Status Date / Time No Known Allergies Allergy Verified 09/20/18 15:27 Home Medications: Home Medication List Medication Instructions Recorded Confirmed Last Taken Type Diltiazem HCl [Cartia Xt] 180 mg PO DAILY 03/31/17 05/17/18 05/16/18 History Gabapentin 300 mg PO TID 03/31/17 05/17/18 05/16/18 History Omeprazole 20 mg PO DAILY 03/31/17 05/17/18 05/16/18 History Aspirin [Aspirin EC] 1 tab PO DAILY 05/17/18 05/17/18 05/16/18 History Dexamethasone [Decadron] 10 tab PO DIRECTED 05/17/18 05/17/18 05/17/18 History Nortriptyline HCl [Pamelor] 1 cap PO QHS 05/17/18 05/17/18 05/16/18 History Valacyclovir HCl [Valtrex] 1 tab PO DAILY 05/17/18 05/17/18 05/17/18 History Warfarin Sodium 1 tab PO QHS 05/17/18 05/17/18 Unknown History Amoxicillin/Potassium Clav 1 ea PO BID #14 tab 05/20/18 Unknown Rx [Augmentin 500-125 Tablet] - History of Present Illness -Gen Adult Nature of Presenting Problems: Patient is a 63 year old male who presents to the ED for abnormal labs. Patient' s states patient was sent from Dr. Kaminski's office. Patient's states patient has multiple myeloma and receives chemo every Tuesday. Patient's states patient did not receive chemo today. Patient states generalized pain, weakness, shortness of breath and cough. Patient denies fever and chills. Patient also states urinary retention. Location of Pain/Injury: reports: generalized Pain Radiation: reports: no radiation Quality of Pain: reports: aching Severity: reports: mild Onset/Duration: reports: gradual Timing: reports: still present Context/Activities at Onset: reports: light activity Modifying Factors: improves with: nothing Associated Symptoms: reports: cough, genitourinary problems (retention), shortness of breath, weakness Similar Symptoms Previously?: Yes Recently seen or treated by another doctor?: No Review of Systems - Adult - REVIEW OF SYSTEMS - ADULT Constitutional: reports: no symptoms reported Eyes: reports: no symptoms reported Ears, Nose, Mouth & Throat: reports: no symptoms reported Cardiovascular: reports: no symptoms reported Respiratory: reports: cough, shortness of breath. denies: wheezing Gastrointestinal: reports: no symptoms reported Genitourinary: reports: urinary retention. denies: dysuria, hematuria Musculoskeletal: reports: muscle weakness, other (generalized pain). denies: back pain, neck pain Integumentary: reports: no symptoms reported Neurological: reports: no symptoms reported Psychiatric: reports: no symptoms reported Endocrine: reports: no symptoms reported Hematologic/Lymphatic: reports: no symptoms reported Allergic/Immunologic: reports: no symptoms reported All Other Systems: Reviewed and Negative Past History - Adult - PAST MEDICAL HISTORY-ADULT Review of Records: reports: Nursing Assessment Review, Medications Reviewed, Social history reviewed & non-contributory. Major Childhood Illnesses: reports: denies history Cardiovascular: reports: CHF, HTN Respiratory: reports: denies history Gastrointestinal: reports: denies history Obstetrical/Gynecological: reports: denies history Genitourinary: reports: denies history Musculoskeletal: reports: denies history Neurological: reports: cancer/tumor Psychiatric: reports: denies history Endocrine/Immune: reports: denies history Other Conditions: reports: other cancer ("bone" per patient) - PRIOR SURGERIES/PROCEDURES Surgical/Procedure History: reports: reviewed, not pertinent - IMMUNIZATION STATUS Childhood Immunizations: See Nurse Assessment Flu Vaccine: See Nurse Assessment - FAMILY HISTORY Family History: reviewed, not pertinent - SOCIAL HISTORY Smoking: denies Substance Use: denies Physical Exam-General - PHYSICAL EXAM-ADULT Initial Vital Signs Reviewed: Yes - CONSTITUTIONAL General Appearance: alert, no apparent distress - HEAD, EARS, NOSE, MOUTH & THROAT HENMT: other (dry mucous membranes) - RESPIRATORY Respiratory: chest non-tender, lungs clear, normal breath sounds, increased rate - GASTROINTESTINAL (ABDOMEN) Abdominal Exam: normal bowel sounds, soft, guarding, rebound (mild), tenderness (generalized), hernia (small umbilical) - MUSCULOSKELETAL Extremity: non-tender, normal inspection - SKIN Integumentary: normal turgor, pallor - NEUROLOGIC Neurologic: grossly normal - PSYCHIATRIC Psych/Mental Status: normal mood/affect, oriented x 3 Progress - PLAN OF CARE/RESULTS Progress/Plan/Lab Results: Vital Signs - 8 hr 09/20/18 11:14 Temperature 98.0 F Pulse Rate 117 H Respiratory Rate 18 Blood Pressure 112/69 O2 Sat by Pulse Oximetry 100 Laboratory Results - last 24 hr 09/20/18 09/20/18 09/20/18 11:27 11:27 11:27 WBC 24.35 H RBC 2.97 L Hgb 8.7 L Hct 27.5 L MCV 92.6 MCH 29.3 MCHC 31.6 L RDW Std Deviation 15.9 H Plt Count 212 MPV 12.0 H Immature Gran % (Auto) 11.3 H Neut % (Auto) 67.2 Lymph % (Auto) 10.0 L [place] % (Auto) 9.2 Eos % (Auto) 1.3 Baso % (Auto) 1.0 H Immature Gran # (Auto) 2.75 H Neut # (Auto) 16.37 H Lymph # (Auto) 2.43 [place] # (Auto) 2.23 H Eos # (Auto) 0.32 Baso # (Auto) 0.25 H Segmented Neutrophils 60 Band Neutrophils 12 H Lymphocytes 6 L Monocytes 6 Eosinophils 4 Metamyelocytes 8.0 Myelocytes 4.0 Large Platelets 2+ PT 16.7 H INR 1.26 PTT (Actin FS) 42.4 H Sodium 133 L Potassium 4.4 Chloride 94 L Carbon Dioxide 16 L Anion Gap 23 BUN 46 H Creatinine 4.3 H Estimated GFR/1.73 m2 17 BUN/Creatinine Ratio 11 Glucose 127 H Calculated Osmolality 280 Calcium 9.9 Magnesium 2.6 Total Bilirubin 2.83 H AST 144 H ALT 360 H Alkaline Phosphatase 146 H Creatine Kinase 314 H Creatine Kinase Index 0.6 CK-MB (CK-2) 2.04 Troponin T Total Protein 8.6 H Albumin 2.8 L Globulin 5.8 Albumin/Globulin Ratio 0.5 Plasma Lactate 09/20/18 09/20/18 11:27 11:27 WBC RBC Hgb Hct MCV MCH MCHC RDW Std Deviation Plt Count MPV Immature Gran % (Auto) Neut % (Auto) Lymph % (Auto) [place] % (Auto) Eos % (Auto) Baso % (Auto) Immature Gran # (Auto) Neut # (Auto) Lymph # (Auto) [place] # (Auto) Eos # (Auto) Baso # (Auto) Segmented Neutrophils Band Neutrophils Lymphocytes Monocytes Eosinophils Metamyelocytes Myelocytes Large Platelets PT INR PTT (Actin FS) Sodium Potassium Chloride Carbon Dioxide Anion Gap BUN Creatinine Estimated GFR/1.73 m2 BUN/Creatinine Ratio Glucose Calculated Osmolality Calcium Magnesium Total Bilirubin AST ALT Alkaline Phosphatase Creatine Kinase Creatine Kinase Index CK-MB (CK-2) Troponin T 0.027 Total Protein Albumin Globulin Albumin/Globulin Ratio Plasma Lactate 2.3 H Orders Category Date Time Status Cardiac Monitoring DIRECTED Care 09/20/18 11:20 Active IV Insertion ORDERED Care 09/20/18 11:20 Active Notify MD of + Sepsis Screen NOW Care 09/20/18 11:20 Active Notify Physician As Ordered Care 09/20/18 11:20 Active CHEST-1 VIEW [RAD] Stat Exams 09/20/18 11:20 Completed BLOOD CULTURE [BLDCUL] Stat Lab 09/20/18 11:35 Results CBC WITH DIFF [HEME] Stat Lab 09/20/18 11:27 Completed CK PROFILE [SP CHEM] Stat Lab 09/20/18 11:27 Completed COMPREHENSIVE METABOLIC PANEL [CHEM] Stat Lab 09/20/18 11:27 Completed LACTATE, PLASMA [CHEM] Q3H Lab 09/20/18 11:27 Completed LACTATE, PLASMA [CHEM] Q3H Lab 09/20/18 14:30 Uncollected LACTATE, PLASMA [CHEM] Q3H Lab 09/20/18 17:30 Uncollected MAGNESIUM [CHEM] Stat Lab 09/20/18 11:27 Completed PROTIME WITH INR [COAG] Stat Lab 09/20/18 11:27 Completed PTT [COAG] Stat Lab 09/20/18 11:27 Completed TROPONIN T Stat Lab 09/20/18 11:27 Completed URINALYSIS W/POSS RFLX CULT [URINALYSIS] Stat Lab 09/20/18 11:20 Uncollected Oxygen Device Stat Oth 09/20/18 11:20 Active Result Diagrams: 09/20/18 11:27 09/20/18 11:27 - REASSESSMENT Reassessment #1 Time Reassessed: 15:50 Status: improving - XRAY 1 XRAY Study: Chest Impression: See EMR Report ( EXAM: CHEST-1 VIEW HISTORY: possible sepsis TECHNIQUE: Chest single view COMPARISON: 05/20/2018 FINDINGS: The lungs are well expanded. The heart is not enlarged. The vessels are not distended. There are no infiltrates. No effusion identified. IMPRESSION: No pneumonia. Electronically signed by Rupert Drake 09/20/2018 11:58 AM 09/20/18 1158 Interpreting Physician: Rupert Drake MD Dictated Date/Time: 09/20/18 1157 cc: Ole Yagn MD; Demetrio Aragon MD) - CT/MRI 1 CT Study: Abdomen, Pelvis Impression: See EMR Report ( EXAM: CT ABDOMEN/PELVIS W/O CONTRAST INDICATION: RUQ pain, multiple myeloma, renal failure with RUQ TECHNIQUE: This exam was performed using automated exposure control, adjustment of mA or kV according to patient size, and/or use of iterative reconstruction technique. COMPARISON: FINDINGS: There is subsegmental atelectasis at the lung bases. There is a tiny stable hypodense lesion in the anteromedial right hepatic lobe that probably represents a small cyst. The liver is unremarkable, otherwise. The gallbladder, spleen, pancreas, and adrenal glands are unremarkable. The kidneys and urinary bladder are unremarkable. The appendix is normal. There is a tiny sliding hiatal hernia. The GI tract is essentially unremarkable, otherwise. There are innumerable lytic lesions seen throughout the spine, pelvis, and sacrum that are consistent with known multiple myeloma. This is approximately stable. IMPRESSION: 1.Innumerable bony lytic lesions that are very similar to the previous study consistent with multiple myeloma. 2.Other external/ nonacute findings detailed above. No definite acute abdominal or pelvic pathology, otherwise. Electronically signed by Mata Red 09/20/2018 3:37 PM 09/20/18 1537 Interpreting Physician: Mata Red MD Dictated Date/Time: 09/20/18 1529 cc: Ole Yang MD; Demetrio Aragon MD) - CONSULTS/PCP/HOSPITALIST Notification #1 *Consult/PCP/Hospitalist*: MELISA Barron for Hospitalist Time Discussed: 15:48 (Dr. Escalante accepted admit, they will consult nephrology if needed) Reason/Comments: Dr. Yang consulted with ALEXI Barron, about patient. Consult Disposition: Will see in ED, Admit Departure - Departure Date of Disposition Decision: 09/20/18 Time of Disposition Decision: 15:50 DIAGNOSIS: Multiple myeloma not having achieved remission Sepsis Qualifiers: Sepsis type: sepsis due to unspecified organism Qualified Code(s): A41.9 - Sepsis, unspecified organism Acute renal failure Qualifiers: Acute renal failure type: unspecified Qualified Code(s): N17.9 - Acute kidney failure, unspecified Disposition: ADMITTED INPATIENT 09 Certified Medical Emergency: Emergent Condition: Fair Referrals and Follow-Ups: Demetrio Aragon MD [Primary Care Provider] - - Critical Care Note This patient required my direct & personal management of CC.: Yes Total Time (mins): 40 Critical Care Statement: This patient required my direct personal management to treat or rule out processes, the absence of which, could potentiallly result in sudden, clinically significant life or limb threatening deterioration. Attestation - Physician/ ENMA Attestation Patient care was provided by Advanced Practice Provider:: No The physician spent face to face time with patient:: Yes Advanced Practice Provider documentation review:: Supervising physician onsite and consulted in the evaluation and care of this patient. The physician did have a face to face encounter with the patient. This chart was documented by the indicated scribe, (Sena Reese Scribe) and accurately reflects the services I performed and decisions made by me, Ole Yang MD, as attested by the provider's signature.
[2018-09-20] MEDS: NS 1,000 ML IV SCH (16:27)
[2018-09-20 16:31] LABS: MAGNESIUM 2.5 mg/dL (1.5-2.7); PHOSPHORUS 5.6 mg/dL (2.7-4.5)
[2018-09-20] MEDS ORDERED: XOPENEX NEB INH PRN (16:38)
[2018-09-20 17:32] LABS: ALLEN TEST YES; BE -9.3 mmoll (-3.0-3.0); BLOOD TYPE ARTERIAL; HCO3-(ACT) 17.7 mmoll (20.0-26.0); METHB 0.5 % (0.0-1.5); O2(CT) 10.6 mL/dL (15.0-23.0); O2HB 96.5 % (95.0-99.0); PCO2(98.6) 25 mmHg (35-45); PO2(98.6) 86 mmHg (60-100); SAMPLE BLOOD; SAO2 98.7 % (95.0-100.0); THB 7.7 g/dL (11.5-17.4); pH(98.6) 7.38 (7.35-7.45)
[2018-09-20 17:33] LABS: MODALITY ROOM AIR
--- NOTE | 2018-09-20 17:48 | Diag Imaging Result Doc PS360 ---
EXAM: CT THORAX W/O CONTRAST INDICATION: PNA eval TECHNIQUE: This exam was performed using automated exposure control, adjustment of mA or kV according to patient size, and/or use of iterative reconstruction technique. COMPARISON: 05/20/2018 FINDINGS: There is scarring versus chronic atelectasis at both lung bases that is essentially stable. The lungs are essentially clear, otherwise. No airspace consolidations are identified. There is no pleural fluid collection and no pneumothorax. The heart is mildly prominent but stable. There is a calcified right hilar lymph node indicating prior granulomatous disease. No significant mediastinal or hilar lymphadenopathy is identified, otherwise. There are innumerable lytic lesions throughout the spine, ribs, and scapulae that is essentially stable. It is consistent with known multiple myeloma. IMPRESSION: 1.Scarring versus chronic subsegmental atelectasis at the lung bases that is similar to the previous study. 2.Innumerable lytic skeletal lesions that are essentially stable related to known multiple myeloma. 3.No definite acute chest pathology, otherwise. Electronically signed by Mata Red 09/20/2018 5:45 PM
[2018-09-20] MEDS: ZOFRAN IV PRN (18:03)
[2018-09-20] MEDS: DILAUDID IV PRN (18:03)
[2018-09-20] MEDS: MAXIPIME 1 GM in NS 50 ML IV SCH (18:30)
[2018-09-20 18:34] LABS: ACETONE SERUM NEGATIVE (NEGATIVE)
[2018-09-20] MEDS: ZYVOX 600 MG/D5W 600 MG/300 ML IVPB IV SCH (18:34)
[2018-09-20 18:37] LABS: IRON SATURATION 52 %; TIBC 114 ug/dL; TOTAL IRON 59 ug/dL (53-167); UNBOUND IRON 55 ug/dL (112-346)
[2018-09-20 19:24] LABS: ACETAMINOPHEN < 1.2 ug/mL (10-30); SALICYLATES < 3.00 mg/dL (3-10)
[2018-09-20 19:38] LABS: FERRITIN 16332 ng/mL (30-400)
[2018-09-20] MEDS: XOPENEX NEB INH SCH (20:00)
--- NOTE | 2018-09-20 21:12 | HISTORY AND PHYSICAL ---
ONCOLOGIST: Dr. Kvng Kaminski. CHIEF COMPLAINT: Weakness and fever. HISTORY OF PRESENT ILLNESS: Mr. Majano is a 63-year-old male well known to our service. He has a history of multiple myeloma, chronic pain, hypertension and GERD. He was sent from Dr. Kaminski's office with abnormal labs, specifically, abnormal renal function. Subjectively, he has been complaining of fever, chills, body aches and weakness over the past 3 weeks. He has a cough with brown sputum production and has been having increasing right upper quadrant pain with occasional nausea and vomiting. He denies any specific chest pain. No diarrhea , but he has been having a decrease in his p.o. intake and a decrease in his urine output. Labs done in the ER show a white count of 24,000 and anemia. He does have a left shift. He is acidotic with acute kidney injury and elevated liver function tests which appear to be new. He also has a mild elevation in his lactic acid. His vital signs are stable, but he does need admission for further treatment and evaluation. PAST MEDICAL HISTORY: 1. Multiple myeloma, followed by Dr. Kaminski. 2. Chronic pain. 3. L1 compression fracture. 4. Hypertension. 5. GERD. 6. History of esophagitis. PAST SURGICAL HISTORY: None. SOCIAL HISTORY: Denies tobacco, alcohol or drug use. He is . His is at the bedside. FAMILY HISTORY: Significant for bone cancer. ALLERGIES: No known drug allergies. HOME MEDICATIONS: 1. Aspirin 81 mg daily. 2. Cardizem 180 mg p.o. daily. 3. Neurontin 300 mg p.o. three times a day. 4. Nortriptyline 10 mg p.o. at bedtime. 5. Prilosec 20 mg at bedtime. 6. Klor-Con 20 mEq p.o. daily. 7. Coumadin 1 mg at bedtime. 8. Valtrex 500 mg p.o. daily. REVIEW OF SYSTEMS: A 14-point review of systems was obtained and found to be negative with the exception of the HPI. PHYSICAL EXAMINATION: VITAL SIGNS: Blood pressure is 127/95, heart rate 98, respiratory rate 15, O2 saturation 97% on room air, temperature 98 degrees Fahrenheit. GENERAL: This is a well-developed, well-nourished male lying in the hospital bed in no acute distress. NEUROLOGIC: Awake, alert and oriented. Follows commands. No focal deficits. HEENT: Head is atraumatic and normocephalic. His pupils are equal, round, and reactive to light. Oral mucosa is dry. NECK: Trachea is midline. There is no JVD. CHEST: Bibasilar crackles. CV: Regular rate and rhythm. S1 and S2 noted. No murmurs. GI: Right upper quadrant tenderness to palpation. Mild distention but no rigidity. No peritoneal irritation. EXTREMITIES: Without edema,clubbing or cyanosis. Pulses are 2+ bilaterally. DIAGNOSTIC DATA: Abdomen and pelvis CT shows innumerable bony lytic lesions similar to previous studies. There is also a tiny stable hypodense lesion on the anteromedial aspect of the right hepatic lobe which probably represents a small cyst. Chest x-ray is negative. WBCs 24.35, hemoglobin 8.7, hematocrit 27.5, platelet count 212. INR is 1.26. Sodium is 133, potassium 4.4, chloride 94. CO2 is 16, anion gap 23, BUN 46, creatinine 4.3, glucose 127. Magnesium 2.6, t-bili 2.83, AST 144, ALT 316, alkaline phosphatase 146. CK 314 , troponins negative. Protein 8.6, albumin 2.8, lactic acid 2.3. ASSESSMENT/PLAN: 1. Sepsis: Source unclear at this time, but we will treat for bronchitis or pneumonia. Will also need a thorax CT. Blood cultures, sputum cultures and urine cultures have all been ordered. Will follow culture data and treat appropriately. 2. Acute kidney injury: Will continue with aggressive fluid hydration and will check urine electrolytes. The CT of the abdomen does not show any renal obstruction. Dr. Valdez has been consulted. Will avoid nephrotoxic agents. 3. High anion gap metabolic acidosis: Likely a combination of renal failure, mild elevation in lactic acid and dehydration. We will check acetaminophen, salicylate, and acetone levels and follow his CO2. 4. Elevated liver function tests: This is new for the patient. He is tender in the right upper quadrant. It is unclear exactly as to the etiology. Will check a hepatitis panel, acetaminophen and alcohol levels, and salicylate levels, and monitor his daily liver function tests. He may need a gastroenterology consultation or a possible MRCP. 5. Multiple myeloma. Aware. Will consult . Dictated by MELISA Olea for Payotn Escalante MD cc: MELISA Olea MD I performed a face to face encounter on the patient. I reviewed all imaging and labs on the patient. I agree with the H&P as dictated. is a 63 year old male with relapsed multiple myeloma who presented to the ER with a chief complaint of fever and weakness. Upon further assessment the patient was noted to be in acute renal failure and metabolic acidosis. On exam, the patient is alert and oriented x 3. His breath sounds were clear to auscultation bilaterally. No peripheral edema was noted. Blood cultures will be ordered as well as urine studies. Will start the patient on normal saline and place a wells. Will consult nephrology and oncology. MTDD
--- NOTE | 2018-09-20 21:23 | HISTORY AND PHYSICAL ---
ADDENDUM ASSESSMENT AND PLAN: 5. Multiple myeloma. Dr. Kaminski has been consulted. 6. Anemia. Will check iron studies and treat accordingly. Transfuse if necessary. 7. Deep venous thrombosis prophylaxis with sequential compression devices. 8. Further recommendations to follow. Dictated by MELISA Olea for Payton Escalante MD -6 cc: MELISA Olea MD
[2018-09-21] MEDS: XOPENEX NEB INH SCH ×7 (00:03→23:05)
[2018-09-21] MEDS: NS 1,000 ML IV SCH ×3 (04:20→17:04)
[2018-09-21] MEDS: MAXIPIME 1 GM in NS 50 ML IV SCH ×2 (04:20→17:04)
[2018-09-21] MEDS: ZYVOX 600 MG/D5W 600 MG/300 ML IVPB IV SCH ×2 (05:16→18:17)
[2018-09-21 08:26] LABS: BASO# 0.07 X1000 (0.0-0.2); BASO% 0.4 % (0.0-0.8); EOS# 0.34 X1000 (0.0-0.7); HEMATOCRIT 21.5 % (42.0-52.0); HEMOGLOBIN 6.9 g/dL (14.0-18.0); IMM GRAN# 1.49 X1000 (0.0-0.04); IMM GRAN% 8.9 % (0.0-0.5); LYMPH# 1.36 X1000 (1.2-3.4); LYMPH% 8.1 % (20.5-51.1); MCH 29.7 PG (27-31); MCHC 32.1 g/dL (33-37); MCV 92.7 FL (81-99); MONO% 10.8 % (1.7-9.3); MPV 11.8 FL (7.4-10.4); NEUT# 11.63 X1000 (1.4-6.5); NEUT% 69.8 % (42.2-75.2); PLT 158 X1000 (130-400); RBC 2.32 XMIL (4.7-6.1); WBC 16.69 X1000 (4.8-10.8)
[2018-09-21 08:49] LABS: ALB/GLOB RATIO 0.6; ALBUMIN 2.3 g/dL (3.5-5.0); CALCIUM 7.8 mg/dL (8.8-10.2); CREATININE 5.7 mg/dL (0.7-1.2); PHOSPHORUS 4.9 mg/dL (2.7-4.5); POTASSIUM 4.6 mmol/L (3.5-5.1); TOTAL BILIRUBIN 2.68 mg/dL (0.20-1.00); TOTAL PROTEIN 6.3 g/dL (6.3-8.3)
[2018-09-21 09:35] LABS: EOS 2 % (1-10); LYMPHS 14 % (21-51); MONO 2 % (1-9); SEGS 76 % (42-75)
[2018-09-21] MEDS: DILAUDID IV PRN ×2 (11:03→16:37)
--- NOTE | 2018-09-21 11:09 | HEMO/ONC CONSULTATION ---
DATE: 09/21/2018 CHIEF COMPLAINT: We are being consulted for further management of patient's multiple myeloma. HISTORY OF PRESENT ILLNESS: Mr. Majano is a 63-year-old male that presented to the office yesterday complaining of increased weakness, pain, chills, shortness of breath, and cough. The patient's said that the patient has been extremely weak, not even able to hardly get up and down and get dressed by himself. The patient, while in the office, was found to have a creatinine of 5.1 and white blood cell count of 25. The patient is extremely weak and sent to the emergency room for further evaluation at that time. While in the emergency department, patient was found to have a white blood cell count of 24.3, creatinine of 4.3. Chest x-ray did not show any pneumonia at that time, and was admitted at that time for further evaluation and management. Mr. Majano is well known to us in our clinic, where he follows up for his multiple myeloma. 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 The patient did well with that treatment and got better, but then relapsed on March 15, 2018, and was started back on his full dose of Velcade, Revlimid, and Decadron at that time. Since that time, the patient has not been very compliant with taking his Reglan and Decadron as instructed. The patient also has a history of Klebsiella sepsis with hypogammaglobulinemia. His IgG level started to drop , and he was supposed to be restarted on his IVIG yesterday, but did not receive that, as he was sent to the emergency department for further evaluation. PAST MEDICAL HISTORY: Multiple myeloma, chronic pain, L1 compression fractures , hypertension, GERD, esophagitis, and IgG deficiency. PAST SURGICAL HISTORY: None. SOCIAL HISTORY: Denies any tobacco, alcohol, or illicit drug use. FAMILY HISTORY: Bone cancer. ALLERGIES: No known drug allergies. HOME MEDICATIONS: Aspirin, Cardizem, Neurontin, nortriptyline, Prilosec, Klor- Con, Coumadin, and Valtrex. REVIEW OF SYSTEMS: Negative unless as mentioned in HPI. PHYSICAL EXAM: Vital Signs: Temperature 98.4 degrees, heart rate 91, respiratory rate 17, blood pressure 114/69, saturating 99% on room air. General: Patient is awake, lying in bed, in no acute distress noted. HEENT: Anicteric. Pupils PERRLA. Mucous membranes appear to be dry. Neck: Supple. Trachea midline. No JVD. Lymph node survey: No palpable lymphadenopathy. Chest: Bilateral breath sounds with crackles bilaterally. Cardiovascular: S1 , S2. Regular rate and rhythm. Abdomen: Soft, tender to right upper quadrant. Bowel sounds present in all 4 quadrants. No hepatosplenomegaly noted. Skin: Warm, dry, and intact. Neurologic: Alert and oriented x3. No focal deficits noted. LABORATORY DATA: White count this morning 16.69, hemoglobin 6.9, hematocrit 21.5, platelets are 158. Potassium 4.6, BUN 46, creatinine 5.7. RADIOLOGY RESULTS: Chest x-ray shows no pneumonia. Abdomen and pelvis CT shows a number of bony lytic lesions consistent with previous study and multiple myeloma. Chest CT shows scarring versus chronic subsegmental atelectasis at the lung bases, similar to previous studies , hemolytic skeletal lesions essentially stable. No other acute chest pathology. ASSESSMENT AND PLAN: 1. Multiple myeloma: The patient has been on Revlimid, Decadron, and Velcade at full doses. The patient received his last dose of treatment September 13, 2018. Noncompliant. At this time, hold treatment until patient returns back to baseline. We will continue to monitor. 2. Possible sepsis: Blood cultures, sputum cultures, and urine cultures have all been ordered. Continue with antibiotics as ordered per primary medical team. 3. Acute kidney injury: Continue with fluid hydration as ordered. Nephrology has been consulted. Continue recommendations per primary medical team and Nephrology. 4. Anemia. Hemoglobin today is 6.9 and hematocrit 21.5. The patient denies any signs of bleeding. We will recheck hemoglobin and hematocrit later today, to make sure that this lab is accurate. Transfuse 1 unit of PRBC Dictated by MELISA Baca for Kvng Kaminski MD cc: MELISA Baca MD [facility]
[2018-09-21 11:19] LABS: URINE SOURCE CLEAN CATCH
[2018-09-21 11:31] LABS: BILIRUBIN URINE SMALL (NEGATIVE); BLOOD URINE TRACE (NEGATIVE); COLOR YELLOW; GLUCOSE URINE TRACE mg/dL (NEGATIVE); KETONE URINE NEGATIVE (NEGATIVE); LEUKOCYTES URINE NEGATIVE (NEGATIVE); NITRITE URINE NEGATIVE (NEGATIVE); PROTEIN URINE 300 mg/dL (NEGATIVE); SP GRAVITY URINE 1.015; TURBIDITY URINE HAZY (CLEAR); UROBILINOGEN URINE 2 mg/dL (NORMAL)
[2018-09-21 11:47] LABS: URINE BACTERIA NEGATIVE /HPF; URINE RBC <10 /HPF (<10); URINE WBC <10 /HPF (<10)
[2018-09-21 11:48] LABS: UR CREAT RANDOM 137.3 mg/dL (14-26)
[2018-09-21 11:50] LABS: UR EPITHELIAL CELLS <10 /HPF (<10)
[2018-09-21 11:51] LABS: URINE CASTS NONE SEEN; URINE CRYSTALS NONE SEEN; URINE SMALL ROUND CELLS NONE SEEN; URINE YEAST NONE SEEN
[2018-09-21] MEDS ORDERED: GAMUNEX-C 10% IV ONE (12:37)
[2018-09-21 12:48] LABS: RETIC% 0.42 % (0.8-2.1); RETIC-HE 27.2 PG (28.2-36.6)
[2018-09-21] MEDS ORDERED: GAMUNEX C IV ONE (14:00)
[2018-09-21] MEDS ORDERED: DILUENT IV ONE (14:00)
--- NOTE | 2018-09-21 14:00 | NEPHROLOGY CONSULTATION ---
DATE: 09/21/2018 REASON FOR ADMISSION: Extreme weakness associated with nausea, decreased appetite, elevated creatinine of 5.1, and elevated white blood cell count of 25, per Dr. Kaminski's office. TIME SEEN: 629. PHYSICIAN REQUESTING CONSULT: Dr. Escalante. HISTORY OF PRESENT ILLNESS: Mr. Majano is a 63-year-old, male, who had been seen by our office on his last hospitalization in May 2018. At that time, he had acute kidney injury after the patient had been restarted on his Velcade for his multiple myeloma. His creatinine had returned to a stable baseline after that period of time and he was discharged. During that period of time, it was found that he had a low IVIG. He was supposed to have been given an IV dose of this yesterday at Dr. Kaminski's office and due to these findings, he did not receive this. He was presented to the hospital. According to their notes and according to the patient, the patient had been in remission from his multiple myeloma in 2015 and had just recently come back in March 2018. It is noted that he does have IgA lambda multiple myeloma with multiple bone metastasis. He has been on Velcade, Revlimid, Decadron and according to the note, he states that he has not been taking this regularly. Since that period of time, he has been very compliant. He does have a history of Klebsiella sepsis with hypogammaglobulinemia and again was due for IgG IV infusion yesterday. At this time, he denies chest pain, though he does have tenderness to his right upper abdominal quadrant, decreased appetite, slight nausea. No emesis. No diarrhea. No fever. No chills. No increased lower extremity swelling. PAST MEDICAL HISTORY: Multiple myeloma, chronic pain syndrome, L1 compression fraction, hypertension, GERD, esophagitis, IgG deficiency. PREVIOUS SURGICAL HISTORY: None. SOCIAL HISTORY: He is . He lives with his spouse. Denies tobacco, alcohol or illicit drug use. FAMILY HISTORY: Positive for bone cancer. No renal disease. ALLERGIES: Listed as no known drug allergies. HOME MEDICATIONS: Have yet to be reconciled. REVIEW OF SYSTEMS: Times 10 with pertinent positives listed above in the HPI. LABS: His sodium is 132, potassium 4.6, chloride 98, CO2 of 14, BUN 46, creatinine 5.7. His glucose is 90. White count 16.69, hemoglobin 6.9, hematocrit 21.5 with a platelet count of 158. The patient had a pro-time on admission of 16.7, INR of 1.26, a PTT of 42.4. His ESR was 135. The patient has a urinalysis positive for protein, small bilirubin, urobilinogen is positive. Urine electrolytes indicate a FENa score of 1.7%. The patient had a CT of the abdomen and pelvis showing unremarkable kidneys or urinary bladder. PHYSICAL EXAMINATION: General: This is a 63-year-old, male. He is resting quietly in bed. He appears chronically ill, no acute distress. Skin: Warm and dry. HEENT: Normocephalic, atraumatic. Conjunctiva is pale. He has PERRL. Mucous membranes are dry. Neck: Supple. Trachea midline. Positive JVD. Cardiovascular: Regular rate and rhythm. He does have a gallop. Lungs: Poor inspiratory effort. Clear to auscultation. He remains on room air. Abdomen: Tender to right upper quadrant. This is currently guarded. He has muffled bowel sounds, along with muffled heart sounds. Genitourinary: Not inspected. Patient has had no urine out up to this time. We will ask him to do a bladder scan to determine if he is obstructed. We will check a renal ultrasound. Extremities: He has no edema. No clubbing or cyanosis. Neurological: He is alert and oriented x3. ASSESSMENT AND PLAN: 1. Acute kidney injury. This appears to be more likely secondary to volume depletion. He is borderline prerenal, intrarenal. He is receiving Revlimid and Velcade on an outpatient basis. He appears to be dehydrated. We will order fluid resuscitation. Check labs in the a.m. 2. Electrolytes and acid-base balance. The patient is acidotic. He may require sodium bicarbonate. 3. Anemia. This has dropped since his hospitalization. He is followed by Dr. Kaminski. We will defer to them for their further orders. 4. Sepsis. The patient's white count remains elevated at 24 now down to 16. He is currently on renal dosed antibiotics. Source is unclear. Blood cultures, sputum cultures and urine cultures have been ordered by the primary care. I would like to thank you for allowing us to follow with this patient. Dictated by MELISA Vargas for Giles Valdez MD [id number] encounter. Data reviewed and discussed with Martha Hammer. I agree with the above assessment and plan of care. cc: MELISA Vargas MD [facility]
[2018-09-21 14:07] LABS: BASO# 0.11 X1000 (0.0-0.2); BASO% 0.6 % (0.0-0.8); EOS# 0.36 X1000 (0.0-0.7); HEMATOCRIT 24.6 % (42.0-52.0); HEMOGLOBIN 7.7 g/dL (14.0-18.0); IMM GRAN# 1.56 X1000 (0.0-0.04); IMM GRAN% 8.7 % (0.0-0.5); LYMPH# 1.65 X1000 (1.2-3.4); LYMPH% 9.2 % (20.5-51.1); MCH 29.1 PG (27-31); MCHC 31.3 g/dL (33-37); MCV 92.8 FL (81-99); MONO# 1.86 X1000 (0.11-0.59); MONO% 10.3 % (1.7-9.3); MPV 12.3 FL (7.4-10.4); NEUT# 12.49 X1000 (1.4-6.5); NEUT% 69.2 % (42.2-75.2); PLT 154 X1000 (130-400); RBC 2.65 XMIL (4.7-6.1); WBC 18.03 X1000 (4.8-10.8)
[2018-09-21 14:24] LABS: HEPATITIS PROFILE ACUTE SEE COMMENTS
--- NOTE | 2018-09-21 14:26 | ECHO REPORT ---
ORDER DATE: 09/21/2018 ECHOCARDIOGRAPHY: ECHOCARDIOGRAPHIC MEASUREMENTS: Interventricular septum 1.1, left ventricular posterior wall 1.1, diastolic diameter 4.6, left atrium 3.6, aorta 3.1. SUMMARY: 1. Aortic valve leaflets are trileaflet. Mitral valve was normal. Tricuspid valve was normal. Pulmonic valve was normal. 2. Trace pulmonary regurgitation. Trace mitral regurgitation. Trace tricuspid regurgitation. Peak velocity across the tricuspid valve was 2.7 m/sec. Pulmonary artery systolic pressure of 38 mmHg. Peak velocity across the aortic valve less than 2 m/sec. There is no aortic stenosis or regurgitation. Normal left ventricular cavity size. Estimated ejection fraction of 65% to 70%. There is hyperdynamic circulation. 3. There is no pericardial effusion or obvious intracardiac mass or thrombus seen. cc: MD Freida Roberto CRNP
[2018-09-21] MEDS: SODIUM BICARBONATE PO SCH ×2 (14:31→20:45)
[2018-09-21 14:42] LABS: BANDS 4 % (0-1); LYMPHS 11 % (21-51); MONO 5 % (1-9); NRBC 1 % (0-0); SEGS 76 % (42-75)
[2018-09-21 14:53] LABS: ALBUMIN 2.1 g/dL (3.5-5.0); CALCIUM 8.4 mg/dL (8.8-10.2); CREATININE 5.4 mg/dL (0.7-1.2); POTASSIUM 5.8 mmol/L (3.5-5.1)
[2018-09-21] MEDS ORDERED: ALBUTEROL 0.5% INH CONC FOR HYPERKALEMIA INH ONE (15:07)
[2018-09-21] MEDS ORDERED: SODIUM BICARBONATE 8.4% IV ONE (15:07)
[2018-09-21] MEDS ORDERED: HUMULIN R IV ONE (15:08)
[2018-09-21] MEDS ORDERED: D50W SYRINGE IV ONE (15:09)
--- NOTE | 2018-09-21 16:32 | PROGRESS NOTE ---
DATE: 09/21/2018 SUBJECTIVE: The patient is resting comfortably in bed. He has no complaints at this time. OBJECTIVE: Vital Signs: Temperature 98.4, blood pressure 114/69, heart rate 88, respirations 17, O2 sats 98% on room air. General: A chronically ill-appearing elderly male lying in bed in no acute distress. Heart: S1, S2 normal. Regular rate and rhythm. Lungs: Clear to auscultation bilaterally. Abdomen: Positive bowel sounds. Soft, nontender, nondistended. Extremities: No edema, no cyanosis. Neurologic: The patient is alert and oriented x 3. LABS: Sodium 131, potassium 5.8, chloride 98, CO2 16, BUN 51, creatinine 5.4,, glucose 91, phosphorus 5, albumin 2.1. White blood cell count 18, hemoglobin 7.7, hematocrit 24, platelets 154,000. ASSESSMENT AND PLAN: 1. Acute kidney injury. The patient's creatinine has increased in comparison to yesterday. The patient's urine output has been marginal today. A Calderon catheter has been placed. We will also monitor the patient's I's and O's closely. Nephrology is following. 2. Multiple myeloma. Dr. Kaminski is following. 3. Leukocytosis. There is no obvious source of infection at this time. We will follow up on the culture results. The patient is currently on empiric antibiotic therapy. 4. Anemia. The patient is scheduled to receive a blood transfusion today. 5. Chronic pain secondary to multiple myeloma. Continue on Dilaudid as needed. 6. Metabolic acidosis. The patient is on sodium bicarbonate tablets. 7. DVT prophylaxis. Will start the patient on SCDs. cc: Payton Escalante MD
[2018-09-21] MEDS: ZOFRAN IV PRN (16:38)
[2018-09-21] MEDS ORDERED: NS 500 ML IV SCH (17:00)
[2018-09-21] MEDS ORDERED: NITROGLYCERIN SL PRN (17:15)
[2018-09-21] MEDS: CARDIZEM CD PO SCH (18:17)
[2018-09-22] MEDS: NS 1,000 ML IV SCH ×3 (02:17→17:09)
[2018-09-22] MEDS: XOPENEX NEB INH SCH ×5 (03:24→19:34)
[2018-09-22] MEDS: MAXIPIME 1 GM in NS 50 ML IV SCH ×2 (04:22→17:09)
[2018-09-22] MEDS: ZYVOX 600 MG/D5W 600 MG/300 ML IVPB IV SCH ×2 (04:23→17:10)
[2018-09-22 04:57] LABS: BASO# 0.08 X1000 (0.0-0.2); BASO% 0.6 % (0.0-0.8); EOS# 0.36 X1000 (0.0-0.7); EOS% 2.5 % (0.0-10.0); HEMATOCRIT 24.4 % (42.0-52.0); IMM GRAN# 1.28 X1000 (0.0-0.04); LYMPH# 1.09 X1000 (1.2-3.4); LYMPH% 7.7 % (20.5-51.1); MCH 29.6 PG (27-31); MCHC 32.8 g/dL (33-37); MCV 90.4 FL (81-99); MONO# 1.89 X1000 (0.11-0.59); MONO% 13.3 % (1.7-9.3); MPV 12.3 FL (7.4-10.4); NEUT# 9.54 X1000 (1.4-6.5); NEUT% 66.9 % (42.2-75.2); PLT 125 X1000 (130-400); RDW 15.7 % (11.5-14.5); WBC 14.24 X1000 (4.8-10.8)
[2018-09-22 05:08] LABS: ALB/GLOB RATIO 0.4; ALBUMIN 1.9 g/dL (3.5-5.0); CALCIUM 7.3 mg/dL (8.8-10.2); CREATININE 6.2 mg/dL (0.7-1.2); POTASSIUM 4.6 mmol/L (3.5-5.1); TOTAL BILIRUBIN 3.26 mg/dL (0.20-1.00); TOTAL PROTEIN 7.3 g/dL (6.3-8.3)
[2018-09-22 06:04] LABS: ALLEN TEST YES; BE -11.8 mmoll (-3.0-3.0); BLOOD TYPE ARTERIAL; HCO3-(ACT) 15.8 mmoll (20.0-26.0); METHB 0.8 % (0.0-1.5); O2(CT) 9.8 mL/dL (15.0-23.0); O2HB 97.1 % (95.0-99.0); PCO2(98.6) 22 mmHg (35-45); PO2(98.6) 106 mmHg (60-100); SAMPLE BLOOD; SAO2 99.6 % (95.0-100.0); pH(98.6) 7.36 (7.35-7.45)
[2018-09-22 06:05] LABS: MODALITY CANNULA
--- NOTE | 2018-09-22 07:33 | EKG Report ---
Test Performed on : 09/21/2018 5:11:40 PM Test Reason : tachycardia Blood Pressure : / mmHG Vent. Rate : 132 BPM Atrial Rate : 132 BPM P-R Int : 156 ms QRS Dur : 108 ms QT Int : 300 ms P-R-T Axes : 057 -51 077 degrees QTc Int : 444 ms Sinus tachycardia. with frequent premature ventricular complexes. Possible Left atrial enlargement Left anterior fascicular block ST & T wave abnormality, consider lateral ischemia Abnormal ECG When compared with ECG of 01-APR-2017 06:19, Significant changes have occurred Confirmed by Tano Mccauley MD ([id number]) on 09/22/2018 9:22:18 AM
[2018-09-22] MEDS: DILAUDID IV PRN ×3 (08:00→23:48)
[2018-09-22] MEDS: SODIUM BICARBONATE PO SCH ×2 (08:04→20:14)
[2018-09-22] MEDS: CARDIZEM CD PO SCH (08:04)
--- NOTE | 2018-09-22 08:04 | Diag Imaging Result Doc PS360 ---
EXAM: CHEST-PORTABLE 09/22/2018 HISTORY: dyspnea TECHNIQUE: AP upright chest portable at 0751 COMMENT: There are some platelike opacities in the lung bases bilaterally which have improved since 05/20/2018. There has been no appreciable change since 02/17/2019. IMPRESSION: Bibasilar atelectasis and/or linear fibrotic scars. Electronically signed by Navjot Lundberg 09/22/2018 8:02 AM
--- NOTE | 2018-09-22 09:39 | HEMO/ONC PROGRESS NOTE ---
DATE: 09/22/2018 SUBJECTIVE: The patient yesterday complained of increased chest pain, increased weakness, heart racing. The patient got tachycardic and was transferred to intensive care unit for further monitoring and evaluation. OBJECTIVE: Vital Signs: Temperature 97.6 degrees, heart rate 97, respiratory rate 20, blood pressure is 129/75, satting 99% on nasal cannula. General: Patient is awake , lying in bed, no acute distress noted. HEENT: Anicteric. Pupils PERRLA. Mucous membranes appear to be dry. Cardiovascular: S1, S2. Regular rate and rhythm. Chest: Bilateral breath sounds. Clear to auscultation. Abdomen: Soft, nontender. Bowel sounds present in all 4 quadrants. Neurologic: Alert and oriented x3. No focal deficits noted. LABORATORY DATA: White cell count is 14.34, hemoglobin 8.0, hematocrit 24.4, platelets are 125. Sodium 129, potassium 4.6. BUN 48, creatinine 6.2. ASSESSMENT/PLAN: 1. Multiple myeloma: Revlimid, Decadron, Velcade on hold at the moment waiting for patient to improve. We will continue to monitor closely. 2. Possible sepsis: Continue recommendations per primary medical team. Continue antibiotics. 3. Acute kidney injury: Continue fluid hydration. Continue recommendations per Nephrology. 4. Anemia: Patient received 1 unit of packed red blood cells yesterday. Hemoglobin and hematocrit have improved. Today, hemoglobin is 8.0, hematocrit 24.4. Continue to monitor very closely. Transfuse as needed. Dictated by MELISA Baca for Kvng Kaminski MD cc: MELISA Baca MD [facility]
[2018-09-22] MEDS ORDERED: DULCOLAX PO ONE (09:58)
--- NOTE | 2018-09-22 10:59 | Diag Imaging Result Doc PS360 ---
EXAM: ABDOMEN FLAT/UPRIGHT 09/22/2018 HISTORY: constipation/abdominal pain TECHNIQUE: AP portable flat and upright abdomen at 1035 COMMENT: There is some stool in the colon. There are slightly distended gas-filled small bowel loops in the left abdomen. These findings were not present on 10/24/2016. There is no evidence organomegaly or mass. There are phleboliths in the pelvis. IMPRESSION: Constipation. The possibility of a mild focal ileus in the left abdomen cannot be excluded. Electronically signed by Navjot Lundberg 09/22/2018 10:56 AM
[2018-09-22] MEDS: COLACE PO SCH ×2 (12:10→20:14)
--- NOTE | 2018-09-22 15:48 | PROGRESS NOTE ---
DATE: 09/22/2018 SUBJECTIVE: The patient is resting comfortably in bed. His heart rate is under better control. He states that he is having back pain and abdominal pain. He states that he has not had a bowel movement in several days. His urine output remains quite low. OBJECTIVE: Vital signs: Temperature 97.8, blood pressure 139/83, heart rate 92, respiratory rate 20 and O2 saturation is 95% on 2 L nasal cannula. Urine output 355. General: This is a chronically ill appearing elderly male lying in bed in no acute distress. HEENT : Normocephalic, atraumatic. Skin: No rashes or lesions. Heart: S1, S2. Normal. Regular rate and rhythm. Lungs: Clear to auscultation bilaterally. No wheezing or rales. Abdomen: Positive bowel sounds. Soft and nontender, nondistended. Extremities: No edema. No cyanosis. No calf tenderness. Neurological: The patient is alert and oriented x3. No focal neurological deficits noted. LABORATORY; WBC 14, hemoglobin 8, hematocrit 24 and platelets 125. Sodium 129 , potassium 4.6, chloride 95, CO2 13, BUN 48 and creatinine 6.2. Glucose 73. ProBNP is 17, 406. Albumin 1.9. Chest x-ray showed bibasilar atelectasis. Abdominal x-ray: Constipation. Mild focal ileus in the left abdomen possible. ASSESSMENT AND PLAN: 1. Acute kidney injury. The patient's urine output has been marginal despite administration of IV fluids for the last several days. He does not appear to be volume overloaded clinically at this time. We will await further recommendations from the mixer pigment. 2. Constipation. We will start the patient on laxative therapy. 3. Multiple myeloma. Aware. Dr. Kaminski is following. 4. Leukocytosis. Improved. Will continue with antibiotic therapy. So far no obvious source of infection is apparent. 5. Hyponatremia. The patient's sodium level is slowly dropping. We will continue to monitor this closely. 6. Anion gap metabolic acidosis. Management as per the mixer pigment. 7. Severe protein calorie malnutrition. The patient reports that he has no appetite. We will consult with the front office help and start some meal supplements. 8. Deep vein thrombosis prophylaxis. Continue on Heparin. cc: Payton Escalante MD [facility]ENTERIvelisse
[2018-09-22] MEDS: ALBUMIN 25% IV SCH (17:10)
[2018-09-22] MEDS: HEPARIN SUBQ SCH (20:15)
[2018-09-22] MEDS ORDERED: MOVANTIK PO ONE (21:00)
[2018-09-22] MEDS ORDERED: DULCOLAX PR SCH (21:00)
[2018-09-23] MEDS: NS 1,000 ML IV SCH ×2 (01:46→08:34)
--- NOTE | 2018-09-23 02:19 | NEPHROLOGY PROGRESS NOTE ---
DATE: 09/22/2018 TIME SEEN: 09:00 a.m. SUBJECTIVE: The patient is sitting up in bed. He has not had much of an appetite today. OBJECTIVE: Vital Signs: Temperature 97.6 degrees, pulse 94, respiratory rate 20, blood pressure 129/75. Intake 4.6 L, output 355 mL. PHYSICAL EXAMINATION: General: This is a middle-aged gentleman sitting up in bed. He is awake and alert. He is interactive. He is in no acute distress. HEENT: Normocephalic and atraumatic. His oral mucosa is moist. Neck: Supple. There is no JVD. Cardiovascular: Regular rate and rhythm with a gallop. Pulmonary: He is clear bilaterally. Abdomen: Soft with positive bowel sounds. Genitourinary: He is voiding. Extremities: No clubbing, cyanosis or edema. Integumentary: Skin is warm and dry. Neurologic: Grossly nonfocal. LABORATORY DATA: WBC of 14.2, hemoglobin 8.0, sodium 129, potassium 4.6, CO2 is 13, BUN 48, creatinine 6.2. ProBNP is 17,000. ASSESSMENT AND PLAN: Initially thought secondary to volume depletion. The patient is a multiple myeloma patient on Revlimid and Velcade. His renal function has worsened today, but he did not have uremic symptoms. It is unclear about his urine output. We will continue to monitor him closely. There is some concern that within the next couple of days his renal function will reach the point that we will need to intervene in the form of dialysis, but first we would try to see if he will respond to fluids. Dictated by MELISA Macedo for Giles Valdez MD cc: Giles Valdez MD
[2018-09-23] MEDS: XOPENEX NEB INH SCH ×7 (03:40→23:05)
[2018-09-23] MEDS: MAXIPIME 1 GM in NS 50 ML IV SCH ×2 (03:46→16:50)
[2018-09-23] MEDS: ZYVOX 600 MG/D5W 600 MG/300 ML IVPB IV SCH (03:46)
[2018-09-23] MEDS: HEPARIN SUBQ SCH ×3 (04:33→20:52)
[2018-09-23 05:34] LABS: BASO# 0.09 X1000 (0.0-0.2); BASO% 0.6 % (0.0-0.8); EOS% 2.8 % (0.0-10.0); HEMOGLOBIN 8.1 g/dL (14.0-18.0); IMM GRAN# 1.07 X1000 (0.0-0.04); IMM GRAN% 7.5 % (0.0-0.5); LYMPH# 1.17 X1000 (1.2-3.4); LYMPH% 8.2 % (20.5-51.1); MCH 30.3 PG (27-31); MCHC 33.8 g/dL (33-37); MCV 89.9 FL (81-99); MONO# 1.65 X1000 (0.11-0.59); MONO% 11.5 % (1.7-9.3); MPV 12.3 FL (7.4-10.4); NEUT# 9.96 X1000 (1.4-6.5); NEUT% 69.4 % (42.2-75.2); PLT 126 X1000 (130-400); RBC 2.67 XMIL (4.7-6.1); WBC 14.34 X1000 (4.8-10.8)
[2018-09-23 05:38] LABS: ALB/GLOB RATIO 0.4; ALBUMIN 2.2 g/dL (3.5-5.0); CREATININE 6.7 mg/dL (0.7-1.2); PHOSPHORUS 4.1 mg/dL (2.7-4.5); POTASSIUM 4.6 mmol/L (3.5-5.1); TOTAL BILIRUBIN 3.21 mg/dL (0.20-1.00); TOTAL PROTEIN 7.2 g/dL (6.3-8.3)
[2018-09-23 05:41] LABS: CALCIUM 6.9 mg/dL (8.8-10.2)
[2018-09-23 05:56] LABS: HEMOGLOBIN A1C 5.4 % (4.8-6.0)
[2018-09-23 06:03] LABS: EOS 1 % (1-10); LYMPHS 9 % (21-51); MONO 12 % (1-9); SEGS 78 % (42-75)
[2018-09-23] MEDS ORDERED: CALCIUM GLUCONATE 1 GM in NS 50 ML IV ONE (06:24)
[2018-09-23] MEDS: ALBUMIN 25% IV SCH (08:29)
[2018-09-23] MEDS: DILAUDID IV PRN ×2 (08:29→18:37)
[2018-09-23] MEDS: CARDIZEM CD PO SCH (08:30)
[2018-09-23] MEDS: SODIUM BICARBONATE PO SCH ×2 (08:30→20:52)
--- NOTE | 2018-09-23 11:04 | Diag Imaging Result Doc PS360 ---
CHEST-PORTABLE - 09/23/2018 INDICATION: Vas Cath placement COMPARISON: 09/22/2018 FINDINGS: There is a new right internal jugular central line in good position with the tip at the lower SVC. There is worsening infiltrate or edema in the left perihilar lung. No pneumothorax or significant pleural effusion. Stable cardiomegaly and pulmonary vascular congestion. IMPRESSION: No complication from the line placement. Worsening infiltrate or pulmonary edema in the central left lung. Electronically signed by Pepe Espinoza 09/23/2018 11:01 AM
[2018-09-23 13:37] LABS: ALLEN TEST YES; BE -13.8 mmoll (-3.0-3.0); BLOOD TYPE ARTERIAL; METHB 1.4 % (0.0-1.5); PO2(98.6) 52 mmHg (60-100); SAMPLE BLOOD; SAO2 91.8 % (95.0-100.0); THB 8.1 g/dL (11.5-17.4); pH(98.6) 7.37 (7.35-7.45)
[2018-09-23 13:39] LABS: MODALITY CANNULA; O2HB 87.5 % (95.0-99.0); PCO2(98.6) 17 mmHg (35-45)
[2018-09-23] MEDS ORDERED: PERCOCET-10 PO PRN (14:43)
[2018-09-23] MEDS: PERCOCET-5 PO PRN ×2 (14:56→20:52)
[2018-09-23 15:07] LABS: ALLEN TEST YES; BE -7.4 mmoll (-3.0-3.0); BLOOD TYPE ARTERIAL; HCO3-(ACT) 19.1 mmoll (20.0-26.0); METHB 1.7 % (0.0-1.5); O2(CT) 11.2 mL/dL (15.0-23.0); PCO2(98.6) 20 mmHg (35-45); PO2(98.6) 74 mmHg (60-100); SAMPLE BLOOD; SAO2 98.1 % (95.0-100.0); THB 8.3 g/dL (11.5-17.4); pH(98.6) 7.48 (7.35-7.45)
[2018-09-23 15:08] LABS: MODALITY VENTIMASK
[2018-09-23] MEDS ORDERED: ATIVAN IV PRN (16:08)
[2018-09-23] MEDS: CARDIZEM 125 MG in NS 100 ML IV SCH (16:50)
[2018-09-23] MEDS ORDERED: VANCOMYCIN 1 GM/NS 1 GM/250 ML IVPB IV ONE (17:00)
--- NOTE | 2018-09-23 23:49 | PROGRESS NOTE ---
DATE: 09/23/2018 SUBJECTIVE: The patient was noted to have increased work of breathing this morning, and his urine output has not improved. He is more acidotic today. OBJECTIVE: Vital Signs: Temperature 97 degrees, blood pressure 153/88, heart rate 114, respirations 26, oxygen saturation 94% on 5 L nasal cannula. Urine output 450. General: This is a chronically ill-appearing elderly male, lying in bed, in no acute distress. Head: Normocephalic, atraumatic. Heart: S1, S2 normal. Regular rate and rhythm. Lungs: Diminished breath sounds at the bases. No crackles. Abdomen: Positive bowel sounds. Soft, nontender. The patient has trace edema in the left arm, trace edema in the lower extremities. Neurologic: The patient is alert and oriented x3. LABS: White blood cell count 13, hemoglobin 8.1, hematocrit 24, platelets 126, 000. ABG: pH of 7.37, pCO2 77, PO2 52, bicarb 13. Sodium 130, potassium 4.6, chloride 98, CO2 10, BUN 51, creatinine 6.7, glucose 66, calcium 6.9, phosphorus 4.1, total bilirubin 3.2, AST 23, ALT 74, alkaline phosphatase 72, albumin 2.2. IMAGING: Chest x-ray shows worsening infiltrate or pulmonary edema in the central left lung. ASSESSMENT AND PLAN: 1. Acute hypoxemic respiratory failure. The patient's chest x-ray is showing a worsening infiltrate versus pulmonary edema in the left lung. The patient will be placed on a Ventimask and he is scheduled to be dialyzed today. We will keep a close watch on the patient's respiratory status. 2. Possible pneumonia. We will continue on cefepime. We will switch the patient to vancomycin to be given after each dialysis session. We will also continue with bronchodilator therapy and order a procalcitonin level. 3. Volume overload. This will be addressed during dialysis today. 4. High anion gap metabolic acidosis. This will be managed during dialysis. 5. Leukocytosis. Continue with antibiotic therapy. 6. Hyponatremia. Aware. 7. Acute kidney injury. The patient is scheduled to undergo dialysis today. 8. Multiple myeloma. Aware. Dr. Kaminski is following. 9. Left cephalic vein thrombosis. Aware. 10. Severe protein calorie malnutrition. Continue on the renal diet. 11. Deep vein thrombosis prophylaxis. Continue on heparin. cc: Payton Escalante MD [facility]
[2018-09-24] MEDS: CARDIZEM 125 MG in NS 100 ML IV SCH ×3 (00:27→18:00)
--- NOTE | 2018-09-24 00:39 | OPERATIVE NOTE ---
PROCEDURE DATE: 09/22/2018 PREOPERATIVE DIAGNOSIS: Acute renal failure requiring hemodialysis. POSTOPERATIVE DIAGNOSIS: Acute renal failure requiring hemodialysis. PRINCIPAL PROCEDURE: Right internal jugular Vas-Cath using ultrasound. SURGEON: Minnie Cardenas MD. ANESTHESIA: Local. ESTIMATED BLOOD LOSS: 10 mL. DRAINS: None. INDICATIONS: Mr. Jabari Majano is a 63-year-old black male who has developed renal failure and needs hemodialysis and we were asked to place access. DESCRIPTION OF PROCEDURE: The patient was in ICU bed 5. We placed him supine, turned his head to the left and his right base of neck, shoulder and anterior chest were prepped and draped within the sterile field. I used ultrasound to identify the right internal jugular vein between the 2 heads of the right sternocleidomastoid muscle. We used local anesthetic. Then I used an 18-gauge needle to access the internal jugular vein under ultrasound guidance. This was done on the first stick and then I placed a guidewire through this needle into the right side of the heart. The needle was removed. I made a jase at the exit site of the guidewire within the skin. I placed a dilator over the guidewire into the superior vena cava. The dilator was removed and I placed a Trialysis catheter over the guidewire into the superior vena cava. All 3 ports were functioning well and were flushed with saline. I secured the catheter to the skin with two 2-0 nylon stitches. A dressing was applied. He tolerated the procedure well. Plans are for him to get a portable chest x-ray for placement. I spoke with his after the procedure. cc: Minnie Cardenas MD
[2018-09-24] MEDS: XOPENEX NEB INH SCH ×6 (03:24→23:42)
[2018-09-24] MEDS: HEPARIN SUBQ SCH ×3 (04:28→20:12)
[2018-09-24 05:08] LABS: BASO# 0.08 X1000 (0.0-0.2); BASO% 0.7 % (0.0-0.8); EOS% 3.5 % (0.0-10.0); HEMATOCRIT 24.1 % (42.0-52.0); HEMOGLOBIN 8.2 g/dL (14.0-18.0); IMM GRAN# 0.78 X1000 (0.0-0.04); IMM GRAN% 6.9 % (0.0-0.5); LYMPH# 1.04 X1000 (1.2-3.4); LYMPH% 9.2 % (20.5-51.1); MCH 30.4 PG (27-31); MCV 89.3 FL (81-99); MONO# 1.47 X1000 (0.11-0.59); MPV 12.1 FL (7.4-10.4); NEUT# 7.57 X1000 (1.4-6.5); NEUT% 66.7 % (42.2-75.2); PLT 129 X1000 (130-400); RDW 15.8 % (11.5-14.5); WBC 11.34 X1000 (4.8-10.8)
[2018-09-24 05:09] LABS: ALLEN TEST YES; BE -4.6 mmoll (-3.0-3.0); BLOOD TYPE ARTERIAL; HCO3-(ACT) 21.3 mmoll (20.0-26.0); METHB 1.4 % (0.0-1.5); O2(CT) 15.7 mL/dL (15.0-23.0); O2HB 94.1 % (95.0-99.0); PCO2(98.6) 26 mmHg (35-45); PO2(98.6) 72 mmHg (60-100); SAMPLE BLOOD; SAO2 97.4 % (95.0-100.0); THB 11.8 g/dL (11.5-17.4); pH(98.6) 7.45 (7.35-7.45)
[2018-09-24 05:10] LABS: MODALITY VENTIMASK
--- NOTE | 2018-09-24 05:16 | NEPHROLOGY PROGRESS NOTE ---
DATE: 09/23/2018 SUBJECTIVE: The patient is sitting up in bed. He states he just does not feel well today but he has no nausea or vomiting. OBJECTIVE: Vital Signs: Temperature 98 degrees, pulse 105, respiratory rate 23, blood pressure 150/81. Intake 4.6 L. Output 450 mL. He is at least 8 L positive since admission. Physical Examination: General: This is a middle-aged gentleman resting in bed. He does not appear in acute distress. HEENT: Normocephalic, atraumatic. KRIS. Oral mucosa is moist. Neck: Supple. He has trace JVD. Cardiovascular: Regular rate and rhythm with a gallop. Pulmonary: He is clear bilaterally. He is on O2 supplementation via nasal cannula and has equal excursion. Abdomen: Soft, with positive bowel sounds. : Voiding. Extremities: No clubbing, cyanosis. No pretibial edema. Integumentary: Skin is warm and dry. Lab Data: WBC of 14.3, hemoglobin 8.1. Sodium 130, potassium 4.6, CO2 10, BUN 51, creatinine 6.7, calcium 6.9. ASSESSMENT AND PLAN: Acute kidney injury in a patient with multiple myeloma. His renal function has continued to worsen. He has become more acidotic. His calcium level has dropped. The patient needs a central line for intravenous access. We will have surgery go ahead and place a vascular catheter today. If that can be placed in an expedient time, we will likely go ahead and dialyze him for a short treatment today to try to get things cleaned up and balanced, and then re- evaluate him over the weekend and then plan Tuesday for further treatment. Dictated by MELISA Macedo for Giles Valdez MD cc: Giles Valdez MD
[2018-09-24 05:25] LABS: ALB/GLOB RATIO 0.5; ALBUMIN 2.5 g/dL (3.5-5.0); POTASSIUM 4.3 mmol/L (3.5-5.1); TOTAL BILIRUBIN 4.11 mg/dL (0.20-1.00); TOTAL PROTEIN 7.3 g/dL (6.3-8.3)
[2018-09-24 05:38] LABS: CALCIUM 6.6 mg/dL (8.8-10.2)
[2018-09-24] MEDS ORDERED: CALCIUM GLUCONATE 1 GM in NS 50 ML IV ONE (06:05)
--- NOTE | 2018-09-24 08:18 | Diag Imaging Result Doc PS360 ---
CHEST-PORTABLE - 09/24/2018 INDICATION: pulmonary edema COMPARISON: 09/23/2018 FINDINGS: Stable right-sided dialysis catheter. There is worsening aeration of the both lower lobes with complete loss of the hemidiaphragms, compatible with new atelectasis or consolidation. There is slight improvement in the left perihilar infiltrate. Stable cardiomegaly and pulmonary vascular congestion. IMPRESSION: New atelectasis of the lower lobes. Slight improvement in the left perihilar infiltrate. Electronically signed by Pepe Espinoza 09/24/2018 8:16 AM
[2018-09-24] MEDS: SODIUM BICARBONATE PO SCH ×2 (08:30→20:12)
[2018-09-24] MEDS: CARDIZEM CD PO SCH (08:30)
[2018-09-24] MEDS ORDERED: LASIX IV ONE (09:25)
[2018-09-24] MEDS ORDERED: LASIX 200 MG in NS 25 ML IV ONE (10:00)
--- NOTE | 2018-09-24 14:22 | PROGRESS NOTE ---
DATE: 09/24/2018 SUBJECTIVE: The patient is resting comfortably. He does have a mild tremor and has been complaining of chest pain and anxiety. He underwent his first dialysis session yesterday. He is currently on a cardizem drip. OBJECTIVE: Vital Signs: Temperature 98.6 degrees, blood pressure 145/79, heart rate 107, respirations 24, O2 saturation is 98% on Venturi mask. Urine output 225. General: This is a chronically ill-appearing elderly male lying in bed in no acute distress. HEENT : Head normocephalic and atraumatic. Neck: Supple. No JVD. No lymphadenopathy. Heart: S1, S2 normal. Tachycardic. Lungs: Coarse breath sounds in the left lung field. Abdomen: Positive bowel sounds. Soft, nontender and nondistended. Extremities: With 2+ edema in the left arm. No edema in the lower extremities. Neurologic: The patient is alert and oriented x3. LABORATORY DATA: White blood cell count 11, hemoglobin 8.2, hematocrit 24, platelets 129,000. Sodium 137, potassium 4.3, chloride 101, CO2 of 18, BUN 33, creatinine 6, glucose 59, calcium 6.6, total bilirubin 4, AST 30, ALT 54, alkaline phosphatase 72, albumin 2.5. IMAGING: Chest x-ray, new atelectasis of the lower lobes. Improvement in the left perihilar infiltrate. ASSESSMENT AND PLAN: 1. Acute hypoxemic respiratory failure. The patient remains on a Venturi mask. We will continue with antibiotic therapy and volume control via dialysis. We will also consult with the marble chip terrazzo worker. 2. Possible pneumonia. Continue with antibiotic therapy after each dialysis session. The procalcitonin level is currently pending. 3. Volume overload. Improved. This will be addressed during dialysis. 4. Tachycardia with intermittent chest pain. Continue on the cardizem. Cardiac enzymes are negative. 5. Anion gap metabolic acidosis. Improved. 6. Acute kidney injury. Management as per the traffic supervisor. 7. Hypocalcemia. The patient has received calcium gluconate. 8. Hyperbilirubinemia. The patient's bilirubin has been increasing every day. We will continue to monitor this closely, may need to consult Gastroenterology. 9. Multiple myeloma. Aware. Dr. Kaminski is following. 10. Left cephalic vein thrombosis. Aware. 11. Severe protein calorie malnutrition. Continue on the renal diet. 12. Anemia. Stable. 13. Gastrointestinal prophylaxis. We will start the patient on omeprazole. 14. Deep vein thrombosis prophylaxis. Continue on heparin. cc: Payton Escalante MD MTDD
--- NOTE | 2018-09-24 15:22 | NEPHROLOGY PROGRESS NOTE ---
DATE: 09/24/2018 SUBJECTIVE: The patient is sitting up in bed. He states he was able to eat breakfast. He has no complaints. The nurse states that he seems a little slower to respond today than yesterday. OBJECTIVE: Vital Signs: Temperature 99.6 degrees, pulse 96, respiratory rate 21, blood pressure 148/81. Intake 2.3 L. Output 2.8 L. Eight hundred of this was urine output. Two liters L of this was UF removal on dialysis. General: Middle-aged gentleman, sitting up in bed. He does not appear in any acute distress. HEENT: Normocephalic, atraumatic. KRIS. His oral mucosa is moist. Neck: Supple. Continues with trace JVD. Cardiovascular: Regular rate and rhythm with a gallop. Pulmonary: He is clear bilaterally. He has equal excursion. Abdomen: Soft, with positive bowel sounds. : Not inspected. Extremities: No clubbing, cyanosis. No pretibial edema. Does have some dependent to the backs of the thighs. Integumentary: Skin is warm and dry. LAB DATA: WBC of 11.3, hemoglobin 8.2. Sodium 137, potassium 4.3, CO2 18, creatinine 6.0, calcium was. 6.6. ASSESSMENT AND PLAN: 1. Acute kidney injury in a patient with multiple myeloma. The patient needed IV access yesterday. Because his renal function was tenuous, we went ahead and had a vascular catheter placed in anticipation that he would need dialysis. We did decide to go ahead and treat him for a short 2 hour treatment yesterday to manage his numbers and fluid volumes. I will hold dialysis today. We will re-evaluate with labs and his status tomorrow to determine further treatment. 2. Hypocalcemia. Replacement has already been ordered today. We will dialyze on a regular calcium bath during dialysis. 3. Multiple myeloma. Followed by Primary Oncology. Dictated by MELISA Macedo for Giles Valdez MD cc: Giles Valdez MD
--- NOTE | 2018-09-24 16:10 | CARDIOLOGY CONSULTATION ---
DATE: 09/24/2018 Cardiology was consulted for chest pain. Mr. Jabari Majano is a 63-year-old gentleman who had chest pain this morning. His cardiac enzymes are negative. Electrocardiogram revealed normal sinus rhythm, sinus tachycardia, there was no ST-T changes to suggest ischemia. When he came in his 1st set of troponin also was negative. He is admitted here for multiple myeloma, chronic pain, acute kidney injury. Has undergone dialysis. At the time of my examination, patient does not complain of chest pain. He has multiple myeloma, was sent to the hospital with worsening renal function. He has been complaining of fevers and chills and generalized body ache in the last prior 3 weeks prior to admission. From a cardiac standpoint, no previous cardiac history. There is no palpitations or syncope. Labs done in the emergency room revealed a white count of 24,000. Patient was anemic and he has renal insufficiency. PAST MEDICAL HISTORY: 1. Multiple myeloma, chronic pain. 2. L1 compression. 3. Hypertension. 4. Gastroesophageal reflux disease. 5. Esophagitis. 6. Is undergone dialysis, acute kidney injury during this hospitalization dialysis started. PAST SURGICAL HISTORY: None. Patient denies tobacco, alcohol or drug abuse. HOME MEDICATIONS: Include aspirin 81, Cardizem 180, Neurontin 300, Prilosec 20, Coumadin, Valtrex. REVIEW OF SYSTEMS: 14 point review of system was done.GI: There is no history of nausea, vomiting or diarrhea. There is no history of hematemesis or melena. Central nervous system: No focal weakness to suggest a CVA, TIA. : There is no dysuria or hematuria. PHYSICAL EXAMINATION: Blood pressure was 140/80, heart rate 90, 1st and second heart sounds were heard. There was no S3 gallop.Respiratory: Scattered crepitations. Abdomen: Soft, nontender. There was no guarding or rigidity. Bowel sounds were heard. Central nervous system: Alert, was moving all 4 extremities. DATA: Chest x-ray done today revealed worsening infiltrate versus edema. Echocardiogram done 09/21/2018 revealed ejection fraction of 65 to 70% . CT of the chest was done which revealed subsegmental atelectasis, lytic lesions suggestive of multiple myeloma. LABORATORY EXAMINATION: Revealed sodium 137, potassium 4.3, BUN 33, creatinine 6.0, calcium 6.6. Abnormal liver function test. CURRENT MEDICATIONS: Include Cardizem CD, Lasix, Lorazepam, omeprazole, calcium gluconate was given and is getting vancomycin with dialysis. ASSESSMENT AND PLAN: 1. Mr. Jabari Majano is a 63-year-old Afro-[place] gentleman with history of hypertension, multiple myeloma, is admitted with worsening renal function has been started on dialysis. From a cardiac standpoint he has generalized body aches as well as chest discomfort, 2 sets of troponin was negative. Electrocardiogram did not reveal any evidence of ischemia. He has got multiple lytic lesions on his chest x-ray as well. From a cardiac standpoint will manage conservatively. No plan to do other testing at the present time. I suspect his symptoms are secondary to his multiple myeloma and lytic lesions noted in his ribs. 2. Hypertension. Continue with his Cardizem. 3. He has acute kidney injury, he started dialysis. I have not made any other changes to his medications. Thank you for the consult. cc: Ben Ruiz MD
--- NOTE | 2018-09-24 17:40 | PULMONOLOGY CONSULTATION ---
DATE: 09/24/2018 REQUESTING PHYSICIAN: Dr. Escalante. REASON FOR CONSULTATION: Acute hypoxemic respiratory failure. HISTORY OF PRESENT ILLNESS: Mr. Majano is a 63-year-old black male with multiple myeloma, which has been recurrent since 2016. The patient was admitted to the hospital last May with acute renal failure. He was initiated on saline but started diuresing the day after admission with correction of his acute renal failure. The patient was scheduled to undergo immunoglobulin replacement in Dr. Kaminski's office but labs revealed acute renal failure and patient was admitted to the hospital on the of this month. Initial chest x-ray revealed no acute infiltrates. CT scan of the chest revealed some scarring in the lung bases unchanged from last May. The patient was initiated on fluids and received 4 L of IV fluids between the and and additional 4 L of fluids between the and the . Chest x-ray on the revealed mild vascular prominence and chest x-ray on the revealed progressive infiltrates. IV fluids were discontinued and the patient was initiated on dialysis yesterday. He has had 2 L of fluid removal. Chest x-ray today reveals probable basilar effusions with decreased aeration in the lung bases. The patient reports persistent cough productive of brown-tinged sputum. The patient had evidence of acute hepatitis on presentation and the transaminases are decreasing but his bilirubin continues to climb. PAST MEDICAL HISTORY: 1. Multiple myeloma with extensive bony metastasis. 2. Hypertension. 3. Reflux with history of reflux esophagitis. 4. History of immunoglobulin deficiency. SOCIAL HISTORY: No tobacco or alcohol use listed. FAMILY HISTORY: Noncontributory current presentation. REVIEW OF SYSTEMS: Notable for shortness of breath, cough productive of brown tinged sputum. PHYSICAL EXAM: Reveals well-developed, well-nourished black male who appears his stated age. He is currently on 50% Ventimask. He has mild work of breathing. Blood pressure 145/79, heart rate 107, respiratory rate 24, oxygen saturation 98%.HEENT: Pupils are equal and reactive. Oropharynx is clear. Neck: Supple. Chest: Reveals scattered crackles bilaterally. Cardiac: S1-S2. Abdomen: Mildly distended with increased tympany. Bowel sounds are diminished. Extremities: Revealed trace to 1+ edema. LABORATORIES: White blood count 133, sodium 137, potassium 4.3, chloride 101, bicarbonate 18, anion gap 18, BUN 33, creatinine 6.0, calcium 6.9, bilirubin 4.1, AST 30, ALT 54 , alkaline phosphatase 70. Arterial blood gas, pH 7.45, pCO2 of 26, PO2 of 72. No significant microbiology data available for review. IMPRESSION: A 63-year-old with multiple myeloma, acute renal failure, hepatitis with acute liver failure, pulmonary edema and fluid over load, acute hypoxemic respiratory failure. His transaminases have improved but his bilirubin continues to climb. The patient received approximately 8 L of fluid over 48 hours and chest x-ray revealed progressive increase in infiltrates. He received 200 mg of Lasix early this morning and had approximately 400 mL urine output. Hopefully with additional Lasix today he will not require dialysis until tomorrow. RECOMMENDATIONS: 1. Continue oxygen for hypoxemic respiratory failure. 2. Two additional doses of Lasix today with anticipation of dialysis tomorrow. 3. Attempt to collect sputum for C and S. 4. Medication review. The patient has had recurrent renal failure following treatment. cc: Brien Archer MD [facility]
[2018-09-24] MEDS: PERCOCET-5 PO PRN (18:00)
[2018-09-24] MEDS: LASIX 200 MG in NS 25 ML IV SCH (18:00)
[2018-09-24] MEDS ORDERED: LASIX IV SCH (18:00)
[2018-09-25] MEDS: LASIX 200 MG in NS 25 ML IV SCH (01:22)
[2018-09-25] MEDS: CARDIZEM 125 MG in NS 100 ML IV SCH ×3 (01:24→17:01)
[2018-09-25] MEDS: ZOFRAN IV PRN ×3 (01:28→22:19)
[2018-09-25] MEDS: XOPENEX NEB INH SCH ×6 (03:26→23:30)
[2018-09-25] MEDS: HEPARIN SUBQ SCH ×3 (04:38→20:24)
[2018-09-25 04:57] LABS: ALLEN TEST YES; BE -2.6 mmoll (-3.0-3.0); BLOOD TYPE ARTERIAL; HCO3-(ACT) 22.7 mmoll (20.0-26.0); METHB 1.4 % (0.0-1.5); O2(CT) 12.7 mL/dL (15.0-23.0); PCO2(98.6) 25 mmHg (35-45); PO2(98.6) 50 mmHg (60-100); SAMPLE BLOOD; SAO2 91.1 % (95.0-100.0); THB 10.3 g/dL (11.5-17.4)
[2018-09-25 04:59] LABS: MODALITY CANNULA; O2HB 87.7 % (95.0-99.0)
--- NOTE | 2018-09-25 06:22 | Diag Imaging Result Doc PS360 ---
EXAM: CHEST-PORTABLE HISTORY: dyspnea TECHNIQUE: Portable chest single view COMPARISON: 09/24/2018 FINDINGS: No change in the right jugular line. There is basilar atelectasis. Vascular distention has improved. Infiltrates are less prominent. Interval decrease in the pleural fluid. IMPRESSION: Interval improvement. Electronically signed by Rupert Drake 09/25/2018 6:20 AM
[2018-09-25 06:28] LABS: BASO# 0.08 X1000 (0.0-0.2); BASO% 0.6 % (0.0-0.8); HEMATOCRIT 25.3 % (42.0-52.0); HEMOGLOBIN 8.4 g/dL (14.0-18.0); LYMPH# 1.19 X1000 (1.2-3.4); LYMPH% 9.1 % (20.5-51.1); MCH 29.4 PG (27-31); MCHC 33.2 g/dL (33-37); MCV 88.5 FL (81-99); MONO% 15.3 % (1.7-9.3); MPV 12.3 FL (7.4-10.4); PLT 147 X1000 (130-400); RBC 2.86 XMIL (4.7-6.1); RDW 15.7 % (11.5-14.5); WBC 13.05 X1000 (4.8-10.8)
[2018-09-25 07:04] LABS: ALB/GLOB RATIO 0.5; ALBUMIN 2.5 g/dL (3.5-5.0); CALCIUM 7.6 mg/dL (8.8-10.2); CREATININE 7.1 mg/dL (0.7-1.2); TOTAL BILIRUBIN 4.13 mg/dL (0.20-1.00); TOTAL PROTEIN 7.7 g/dL (6.3-8.3)
[2018-09-25] MEDS: PRILOSEC PO SCH (07:38)
[2018-09-25] MEDS ORDERED: NS 2,000 ML MISC PRN (07:46)
[2018-09-25] MEDS ORDERED: TIGHT: 0.2 ML/HR FOR DIALYSIS MISC PRN (07:46)
[2018-09-25] MEDS ORDERED: HEPARIN IV PRN (07:46)
--- NOTE | 2018-09-25 08:12 | EKG Report ---
Test Performed on : 09/24/2018 09:15:35 AM Test Reason : tachycardia Blood Pressure : / mmHG Vent. Rate : 113 BPM Atrial Rate : 113 BPM P-R Int : 180 ms QRS Dur : 112 ms QT Int : 346 ms P-R-T Axes : 044 -52 069 degrees QTc Int : 474 ms Sinus tachycardia. Possible Left atrial enlargement Left anterior fascicular block Abnormal ECG When compared with ECG of 21-SEP-2018 17:11, premature ventricular complexes. are no longer present Confirmed by Parisa CONNELL, Tano Saxena ([id number]) on 09/25/2018 8:53:34 AM
--- NOTE | 2018-09-25 08:43 | HEMO/ONC PROGRESS NOTE ---
DATE: 09/25/2018 SUBJECTIVE: The patient says he is slowly feeling better. The patient still continues to be short of breath at times. The patient says his pain continues to improve as well. He is still having some mild chest pain though. OBJECTIVE: Vital Signs: Temperature 97.3 degrees, heart rate 83, respiratory rate 19, blood pressure 120/87, saturating 95% on Ventimask. General: The patient is awake, lying in bed with a Ventimask in place. HEENT: Anicteric. Pupils TERRLA. Mucus membranes are dry. Cardiovascular: S1, S2. tachycardic. Chest: Bilateral breath sounds, coarse bilaterally. Abdomen: Soft, nontender. Bowel sounds present in all 4 quadrants. Neurologic: Alert and oriented x3. No focal deficits noted. LABORATORY DATA: White cell count 13.05, hemoglobin 8.4, hematocrit 25.3, platelets are 147. Potassium 4, BUN 41, creatinine 7.1. ASSESSMENT AND PLAN: 1. Multiple myeloma: Treatment is on hold at this time. Waiting on patient to improve. Continue to monitor. 2. Acute hypoxic respiratory failure: Patient can continue on oxygen as ordered. Continue recommendation by primary team and cyber security consultant. 3. Pneumonia: Continue with antibiotics as ordered. Continue medication per medical team. 4. Acute kidney injury: Continue dialysis and recommendation by extrusion die repair manager. 5. Tachycardia with chest pain. Continue with Cardizem as ordered. Continue recommendations by cardiology. 6. Anemia: Hemoglobin and hematocrit continue to be stable. Continue transfusions as needed. 7. Deep venous thrombosis prophylaxis: Continue heparin as ordered. Dictated by MELISA Baca for Kvng Kaminski MD Patient seen and examined. Creatinine continues to worsen. He is on nasal cannula oxygen at this time. He is sitting at the edge of the bed at this time. Plans for dialysis soon. Continue current therapy. I will continue to follow along with you. Discussed with Dr. Escalante. Kvng Kaminski M.D. cc: Kvng Kaminski MD [facility]
[2018-09-25 08:56] LABS: BANDS 6 % (0-1); LYMPHS 12 % (21-51); MONO 14 % (1-9); SEGS 62 % (42-75)
[2018-09-25] MEDS: SODIUM BICARBONATE PO SCH ×2 (08:58→20:25)
[2018-09-25] MEDS: CARDIZEM CD PO SCH (08:59)
--- NOTE | 2018-09-25 10:24 | NEPHROLOGY PROGRESS NOTE ---
DATE: 09/25/2018 SUBJECTIVE: Patient is sitting up in bed. He has been able to eat. OBJECTIVE: Vital Signs: Temperature 99.1 degrees, pulse 93, respiratory rate 17, blood pressure 137/79. General: This is a middle-aged gentleman sitting up in bed. He does not appear in acute distress. HEENT: Normocephalic, atraumatic. KRIS. Neck: Supple without JVD. Cardiovascular: Regular rate and rhythm with a gallop. Pulmonary: Clear bilaterally. Equal excursion. Abdomen: Soft with positive bowel sounds. : Not inspected. Extremities: No clubbing, cyanosis or edema. Integumentary: Skin is warm and dry. INPUT AND OUTPUT: Intake 1.3 L. Output 2.3 L. This was all urine output. LABORATORY DATA: WBC of 13.05, hemoglobin 8.4. Sodium 137, potassium 4, CO2 18 , BUN 41, creatinine 7.1, calcium 7.6. Albumin 2.5. ASSESSMENT AND PLAN: Acute kidney injury in a patient with multiple myeloma. We did dialyze the patient on Tuesday. We gave him the day off on Tuesday and then today his creatinine was noted to have risen yet again, although his urine output has picked up significantly. We will go ahead and dialyze today on a 3K bath/1-2 L UF removal, 3-hour treatment. We will continue with a slow flow. We will evaluate him tomorrow for a 3rd dialysis treatment. Dictated by MELISA Macedo for Giles Valdez MD Face to face encounter, data reviewed, discussed with Blanca Ham on 09/25/18. I agree with the above assessment and plan of care. cc: MD JOSÉ MIGUEL [place]
--- NOTE | 2018-09-25 13:32 | INFECTIOUS DISEASE CONSULT REP ---
DATE: 09/25/2018 CONCLUSION: The patient has bilateral pneumonia. He also has an immunoglobulin deficiency. One of 4 blood cultures is growing a coagulase-negative Staph. That is a contaminant and it does not require antibiotic therapy. RECOMMENDATIONS: I agree with giving the patient cefepime. I have ordered a dose of cefepime 1 g to be given every 24 hours at 8 p.m. at night. Also, I have started the patient on Zyvox 600 mg p.o. every 12 hours starting at 6 p.m. tonight. I have also ordered immunoglobulin levels. If the patient's IgG level is low then I will give him an infusion of IVIG. DISCUSSION: The patient came into the hospital. He and his are not very good historians. The patient came in and was admitted because of weakness and fever. He also felt short of breath. He was not coughing. Patient's studies show a CBC with a white count of 13,050 , hemoglobin 8.4, and platelet count 147,000. Chest x-ray shows bilateral infiltrates. The patient's blood gases show a pH of 7.5, a PO2 of 50, and a pCO2 of 25. Creatinine is 1.0. GFR is 10. Bilirubin is 4.13. The patient had cefepime ordered. As mentioned above, the patient's 1/4 blood cultures positive for coagulase-negative staph is a contaminant and therefore does not need antibiotic treatment. PAST MEDICAL HISTORY/REVIEW OF SYSTEMS: Eyes and ears: The patient does not have any problems seeing or hearing. Neck: No stiffness. Respiratory: The patient did tell me he was short of breath and occasionally coughed. Cardiac: No chest pain or palpitations. GI: The patient had lost his appetite in the past week or 2 but before that he was eating well. Genitourinary: No dysuria or flank pain. Endocrine: Patient is not a diabetic and he does not have thyroid disease. Bones, joints, muscles: No swollen joints or muscle aching. Neurologic: No seizures. No recent loss of motor or sensory function. Integument: No rash PREVIOUS HOSPITALIZATIONS AND OPERATIONS: The patient told me he did not have any prior surgery or admissions. MEDICAL DISEASES: Positive for multiple myeloma, immunoglobulin deficiency, gastroesophageal reflux disease, hypertension, and esophagitis. INFECTIOUS DISEASE HISTORY: Positive for pneumonia. Negative for UTI. FAMILY HISTORY: Positive for cancer and myocardial infarction. SOCIAL HISTORY: [place] He does not smoke cigarettes, drink alcoholic beverages, or abuse drugs. He has no pets. ALLERGIES: His chart lists no known drug allergies. HOME MEDICATIONS: Include the following. The patient takes Decadron, diltiazem , gabapentin, Megace, Pamelor, omeprazole, tizanidine, tramadol, and Valtrex. PHYSICAL EXAMINATION: Vital Signs: Temperature is 97.3 degrees, pulse 106, respirations 24, blood pressure 137/82. The patient weighs 160 pounds. General: This is a fairly healthy- appearing, middle-aged male. The patient is in no acute distress. Head, eyes, ears, nose, and throat: He can hear my spoken words and see near objects. He does not have a white coating of his tongue. Neck: No meningismus. The right side has an internal jugular vein dialysis catheter in place. Lungs: Clear to auscultation. Cardiovascular: Heart rate is regular. Abdomen: Soft and nontender. Neurologic: The patient is alert. He can move his extremities. There is no tremor. His sensation was intact to touch. His memory as regarding his medical history was reduced. Integument: No rash noted. Thank you for the consult. cc: Los Presley MD MTDD
--- NOTE | 2018-09-25 13:55 | PROGRESS NOTE ---
DATE: 09/25/2018 SUBJECTIVE: The patient is resting comfortably in bed. He will be undergoing dialysis today. He states that he does not have an appetite and feels weak. OBJECTIVE: Vital Signs: Temperature 97.3 degrees, blood pressure 137/82, heart rate 106, respirations 24, O2 saturations 98% on 6 L nasal cannula. General: This is a chronically ill- appearing elderly male lying in bed in no acute distress. Heart: S1, S2 normal. Tachycardic. Lungs: Equal air entry bilaterally. No wheezing. No rales. No rhonchi. Abdomen: Positive bowel sounds. Soft, nontender, nondistended. Extremities: 1+ edema in the left upper extremity. No edema in the lower extremities. Neurologic: The patient is alert and oriented x3. No focal neurologic deficits noted. URINE OUTPUT: 1 L. LABORATORIES: White blood cell count 13, hemoglobin 8.4, hematocrit 25, platelets 147,000. Sodium 137, potassium 4, chloride 99, CO2 18, BUN 41, creatinine 7.1, glucose 93 , calcium 7.6, total bilirubin 4.1, AST 25, ALT 43, alkaline phosphatase 74. IMAGING: Chest x-ray shows improved vascular distention and infiltrates are less prominent. ASSESSMENT AND PLAN: 1. Acute hypoxemic respiratory failure. Continue with supplemental oxygen and volume management via dialysis. We will continue to treat the patient for pneumonia as well. 2. Suspected pneumonia. Continue with IV antibiotic therapy. Dr. Presley is following. 3. Acute kidney injury. The patient is scheduled to undergo dialysis today. We will monitor for improvement. The patient is making urine. 4. Multiple myeloma. Aware. Dr. Kaminski is following. 5. Metabolic acidosis. Unchanged. We will continue to monitor closely. 6. Hyperbilirubinemia. The patient's AST and ALT are both normal. We will review the patient's medications. 7. Tachycardia. The patient remains on a Cardizem drip. Cardiology is following. 8. Severe protein calorie malnutrition. Discussed with Dr. Valdez and he will initiate IDPN during dialysis. 9. Deep vein thrombosis prophylaxis. Continue on heparin. cc: Payton Escalante MD [facility]
[2018-09-25] MEDS ORDERED: MAXIPIME 1 GM in NS 50 ML IV SCH (17:00)
[2018-09-25] MEDS: ZYVOX PO SCH ×2 (17:33→20:25)
[2018-09-25] MEDS: DILAUDID IV PRN (17:48)
[2018-09-25] MEDS: MAXIPIME 1 GM in NS 50 ML IV SCH (20:25)
--- NOTE | 2018-09-25 20:37 | PULMONOLOGY PROGRESS NOTE ---
DATE: 09/25/2018 SUBJECTIVE: Patient is awake, alert, and conversant. He reports his breathing has improved. He made 2300 mL in urine yesterday. He is about to undergo dialysis. OBJECTIVE: Vital signs: The patient has been afebrile for the last 24 hours. Blood pressure 121/72, heart rate 93, respiratory rate 25, oxygen saturation 97% on 6 L per nasal cannula. HEENT: Pupils are equal and reactive. Oropharynx is clear. Neck: Supple. Chest: Reveals crackles both anterior and posterior bases. Cardiac: S1, S2. Abdomen: Soft. Extremities: Without edema. DIAGNOSTIC STUDIES: Chest x-ray reveals decreasing pulmonary infiltrates and decrease in pleural fluid. IMPRESSION: A 63-year-old with: 1. Multiple myeloma. 2. Acute renal failure. 3. Hepatitis with elevation in bilirubin. 4. Pulmonary edema. 5. Acute hypoxemic respiratory failure. His chest x-ray and oxygen requirements have decreased with diuresis. He is to be dialyzed today, and I suspect his chest x-ray will continue to improve. RECOMMENDATION: 1. Continue to wean oxygen as tolerated. 2. Continue antibiotics per Infectious Disease, but would consider discontinuing antibiotics when his chest x-ray clears. 3. Follow up chest x-ray 09/26/2018. cc: Brien Archer MD
[2018-09-25] MEDS ORDERED: REGLAN IV ONE ×2 (22:15→23:02)
[2018-09-26] MEDS: XOPENEX NEB INH SCH ×6 (03:15→23:34)
[2018-09-26] MEDS: CARDIZEM 125 MG in NS 100 ML IV SCH ×3 (03:19→20:14)
[2018-09-26] MEDS: HEPARIN SUBQ SCH ×3 (04:40→20:01)
[2018-09-26 05:01] LABS: ALLEN TEST YES; BE 4.4 mmoll (-3.0-3.0); BLOOD TYPE ARTERIAL; HCO3-(ACT) 28.4 mmoll (20.0-26.0); METHB 1.2 % (0.0-1.5); O2(CT) 15.3 mL/dL (15.0-23.0); O2HB 96.4 % (95.0-99.0); PCO2(98.6) 39 mmHg (35-45); PO2(98.6) 108 mmHg (60-100); SAMPLE BLOOD; SAO2 99.4 % (95.0-100.0); THB 11.2 g/dL (11.5-17.4); pH(98.6) 7.47 (7.35-7.45)
[2018-09-26 05:02] LABS: MODALITY VENTIMASK
[2018-09-26 05:19] LABS: BASO# 0.17 X1000 (0.0-0.2); BASO% 1.5 % (0.0-0.8); EOS# 0.58 X1000 (0.0-0.7); EOS% 5.1 % (0.0-10.0); HEMATOCRIT 24.4 % (42.0-52.0); IMM GRAN# 0.81 X1000 (0.0-0.04); IMM GRAN% 7.1 % (0.0-0.5); LYMPH# 1.45 X1000 (1.2-3.4); LYMPH% 12.7 % (20.5-51.1); MCH 29.5 PG (27-31); MCHC 32.8 g/dL (33-37); MONO# 2.22 X1000 (0.11-0.59); MONO% 19.4 % (1.7-9.3); MPV 11.6 FL (7.4-10.4); NEUT# 6.21 X1000 (1.4-6.5); NEUT% 54.2 % (42.2-75.2); PLT 136 X1000 (130-400); RBC 2.71 XMIL (4.7-6.1); RDW 15.9 % (11.5-14.5); WBC 11.44 X1000 (4.8-10.8)
[2018-09-26 05:50] LABS: ALB/GLOB RATIO 0.5; ALBUMIN 2.5 g/dL (3.5-5.0); CALCIUM 7.2 mg/dL (8.8-10.2); CREATININE 4.5 mg/dL (0.7-1.2); POTASSIUM 3.6 mmol/L (3.5-5.1); TOTAL BILIRUBIN 2.99 mg/dL (0.20-1.00); TOTAL PROTEIN 7.7 g/dL (6.3-8.3)
--- NOTE | 2018-09-26 06:32 | Diag Imaging Result Doc PS360 ---
ABDOMEN FLAT/UPRIGHT - 09/25/2018 INDICATION: Abd. distention, vomiting COMPARISON: 09/22/2018 FINDINGS: There is a right central line in good position with the catheter tip at the cavoatrial junction. There is very little gas or stool throughout the colon. Some small bowel loops are borderline distended. No free air. IMPRESSION: No change in the appearance of the abdomen. Small bowel ileus is suspected. Electronically signed by Pepe Espinoza 09/26/2018 6:30 AM
[2018-09-26] MEDS: PRILOSEC PO SCH (06:37)
[2018-09-26 06:46] LABS: LYMPHS 20 % (21-51); MONO 2 % (1-9); SEGS 74 % (42-75)
--- NOTE | 2018-09-26 06:50 | Diag Imaging Result Doc PS360 ---
CHEST-PORTABLE - 09/26/2018 INDICATION: pneumonia COMPARISON: 09/25/2018 FINDINGS: Stable right central line. There is slight improvement in the right lower lobe infiltrate. Otherwise stable multilobar infiltrates bilaterally left greater than right. Stable mild cardiomegaly. IMPRESSION: Slight improvement in aeration of the right lower lobe. No new abnormalities. Electronically signed by Pepe Espinoza 09/26/2018 6:48 AM
[2018-09-26] MEDS ORDERED: NS 2,000 ML MISC PRN (08:04)
[2018-09-26] MEDS ORDERED: TIGHT: 0.2 ML/HR FOR DIALYSIS MISC PRN (08:04)
[2018-09-26] MEDS ORDERED: HEPARIN IV PRN (08:04)
[2018-09-26] MEDS: SODIUM BICARBONATE PO SCH ×2 (09:03→20:01)
[2018-09-26] MEDS: CARDIZEM CD PO SCH (09:03)
[2018-09-26] MEDS: ZYVOX PO SCH ×2 (09:03→20:01)
--- NOTE | 2018-09-26 11:33 | INFECTIOUS DISEASE PROGRESS NO ---
DATE: 09/26/2018 PRESENT ILLNESS: The patient has pneumonia and an immunoglobulin deficiency. One of 4 blood cultures is growing a coagulase-negative Staph. This is a contaminant. MEDICATION: The patient is receiving cefepime and Zyvox. This is the second day of treatment with both agents. PHYSICAL EXAMINATION: Vital Signs: Temperature earlier was 100. Now it is 99. Pulse 100. Respirations 22. Blood pressure 128/76. General: This is a somewhat ill-appearing, middle-aged male. He is in no acute distress. Head, eyes, ears, nose, and throat: He can hear my spoken words and see near objects. There is no drainage from the nose or ears. He does not have any white patches on his tongue. Neck: Patient has a right-sided dialysis catheter in place. The site is not draining. Lungs: Clear to auscultation. Cardiovascular: Regular heart rate. Abdomen: Seems somewhat protuberant. It is soft and it has decreased bowel sounds. Neurologic: The patient is awake. He can move his extremities. There is no tremor. LABORATORY AND X-RAY: Chest x-ray shows improvement in the patient's right lower lobe pneumonia. As mentioned above, 1 of 4 blood cultures is growing coagulase-negative Staph. This is a contaminant and does not require treatment. X-ray of the abdomen shows size consistent with an ileus. Stool for Clostridium difficile, blood cultures, and swab for influenza are all negative. IgA is 2409, IgG is 524. ASSESSMENT AND PLAN: 1. The patient has pneumonia. My plan is to continue his current antibiotics. His IgG level is I think low enough that the patient would benefit from getting 1 dose of IVIG. 2. Comorbidities include multiple myeloma, immunoglobulin deficiency, gastroesophageal reflux disease, and esophagitis. cc: Los Presley MD
[2018-09-26] MEDS: DULCOLAX PR SCH (14:18)
--- NOTE | 2018-09-26 14:42 | NEPHROLOGY PROGRESS NOTE ---
DATE: 09/26/2018 SUBJECTIVE: Patient sitting up in bed eating breakfast. OBJECTIVE: Vital Signs: Afebrile, pulse 100, respiratory rate 22, blood pressure 128/76. Intake 1.2 L. Output 3.9 L. General: Middle-aged gentleman, resting in bed. He is in no acute distress. HEENT: Normocephalic, atraumatic. KRIS. Neck: Supple without JVD. Cardiovascular: Regular rate and rhythm. Pulmonary: Clear bilaterally. Abdomen: Soft. Positive bowel sounds. : Not inspected. Extremities: No clubbing, cyanosis. Integumentary: Skin is warm and dry. Tunneled dialysis catheter insertion site clean, dry, and intact. LAB DATA: WBC of 11.4, hemoglobin 8. Sodium 134, potassium 3.6, CO2 23, creatinine 4.5. ASSESSMENT AND PLAN: Acute kidney injury in a patient with multiple myeloma. We will dialyze him again today on a 3 K bath/2 L UF removal, 3.5 hour treatment. His urine output has continued to apple picker. If the patient does not have improvement in the next few days we may have to consider biopsy to determine if the myeloma is effecting kidney function or not and if this may wind up being more permanent type dialysis. Check labs in the morning. Continue treatment plan. Dictated by MELISA Macedo for Giles Valdez MD Face to face encounter, data reviewed, discussed with Blanca Ham on 09/26/18. I agree with the above assessment and plan of care. cc: Giles Valdez MD [facility]
[2018-09-26] MEDS ORDERED: GAMUNEX-C 10% IV ONE (15:00)
--- NOTE | 2018-09-26 17:27 | PROGRESS NOTE ---
DATE: 09/26/2018 SUBJECTIVE: Patient resting in bed. Not in any obvious distress. Has family present in the room. OBJECTIVE: Vital signs: Temperature 99 degrees, pulse 97, respiratory 21, blood pressure is 121/71, oxygen is 99%. HEENT: He is atraumatic, normocephalic. Cardiovascular : S1, S2. Respiratory: Evidence of good air entry bilaterally. Abdomen: Soft, nontender. No masses felt. Extremities: No evidence of edema. Central nervous system: No obvious focal deficit noted. LABORATORY DATA: WBC is 11.44, hematocrit 24.4, with a platelet count of 136, 000. Chemistry: Sodium is 134, potassium 3.6, chloride 93, bicarbonate is 23, BUN is 29, creatinine 4.5. ASSESSMENT AND PLAN: 1. Acute respiratory failure. Continue supplemental oxygen. Pulmonology following. 2. Pneumonia. Continue antibiotics. 3. Acute kidney injury. The patient on dialysis. Nephrology is following. 4. Multiple myeloma. Aware. 5. Tachyarrhythmia. Continue Cardizem drip. Cardiology following. 6. Deep vein thrombosis (DVT) prophylaxis. Patient is on heparin. cc: Wilmer Benson MD [facility]
[2018-09-26] MEDS: DILAUDID IV PRN (17:41)
--- NOTE | 2018-09-26 18:38 | CONSULTATION ---
DATE OF CONSULTATION: 09/26/2018 REASON FOR CONSULTATION: Possible ileus. HISTORY OF PRESENT ILLNESS: This is a 63-year-old male who was admitted to the hospital on 09/20/2018. He had been following with Dr. Kaminski for diagnosis of multiple myeloma. He had been to Dr. Kaminski's office and had abnormal labs and abnormal renal function test. He was sent to the hospital for further evaluation. Per records, the patient had been complaining of fever, chills, body aches and weakness for over 3 weeks prior to his admission. He had a cough with production of sputum. He had some episodes of right upper quadrant pain and occasional nausea and vomiting. The patient had decreased urine output and decreased appetite. On admission he had elevated liver function tests. His liver function tests have improved. AST and ALT are back to normal. Total bilirubin is decreasing. Today it was 2.99 with its highest of 4.13 during admission. Patient had imaging study that showed some small bowel loops borderline distended with possible ileus suspected. Per intake and output report patient has had daily bowel movements since 09/23/2018 liquid greenish. Patient has been started on dialysis. Patient is being followed by nephrology, hematology, pulmonology, infectious disease. Patient was seen in the dialysis unit. He states he is feeling some better. PAST MEDICAL HISTORY: Multiple myeloma, following with Dr. Kaminski, chronic pain, kidney disease, hypertension, GERD, history of L1 compression fractures. PAST SURGICAL HISTORY: None listed. ALLERGIES: No known drug allergies. HOME MEDICATIONS: Aspirin 1 tablet daily, Decadron 10 tablets as directed, diltiazem 180 mg daily, gabapentin 300 mg 3 times a day, iron twice a day, Megace 400 mg 3 times a day, Pamelor 1 tablet every night, omeprazole 20 mg daily, Klor-Con 20 mEq daily, Zanaflex 4 mg twice a day, Ultracet 37.5/325 every night, Valtrex 1 tablet daily. SOCIAL HISTORY: Denies tobacco or alcohol use. He is . FAMILY HISTORY: For bone cancer. REVIEW OF SYSTEMS: Per history of present illness. PHYSICAL EXAMINATION: Vital Signs: Temperature 99 degrees, pulse 100, respirations 22, blood pressure 128/76. General: Patient was seen in the dialysis unit. He was awake and alert in no acute distress. Respiratory: Lung sounds essentially clear. Abdomen: Soft. Positive bowel sounds. Extremities: With no lower extremity edema noted today. Neurological : Cranial nerves 2- 12 grossly intact. Patient was awake and alert. DIAGNOSTIC RESULTS: Laboratory. Hematology. WBC 11.44, hemoglobin 8.0, hematocrit 24.4, MCV 90.0, platelet 136,000. Chemistry. Sodium 134, potassium 3.6, chloride 93, CO2 of 23, BUN 29, creatinine 4.5, glucose 97, calcium 7.2, total bilirubin 2.99, AST 28, ALT 36, alkaline phosphatase 74. Imaging studies, abdominal x-ray on 07/25/2019 showed some small bowel loops, borderline distention, possible ileus. ASSESSMENT AND PLAN: 1. Multiple myeloma following with Dr. Kaminski. 2. Acute kidney injury following with nephrology. Patient has been started on dialysis. 3. Pneumonia on antibiotics. 4. Immunoglobulin deficiency. Patient is being followed also by Dr. Presley. 5. Possible ileus. Patient is having bowel movements, diarrhea. Will give a Dulcolax suppository today. 6. Elevated liver function tests, elevated bilirubin. His bilirubin has improved since admission. His LFT, AST and ALT have returned back to normal along with normal alkaline phosphatase. Possibility of transaminitis related to infection versus medications. Will continue to monitor his liver function tests. Further plans to be made according to his progress. Patient was also seen by Dr. Moreno. Thank you for this consultation. Dictated by MELISA Kirkpatrick for Sonu Moreno MD cc: MELISA Olivier MD [facility]
[2018-09-26] MEDS: MAXIPIME 1 GM in NS 50 ML IV SCH (20:01)
--- NOTE | 2018-09-26 20:47 | PULMONOLOGY PROGRESS NOTE ---
DATE: 09/26/2018 SUBJECTIVE: The patient is awake, alert, and conversant. He denies shortness of breath. He continued to have cough with some brown tinged sputum production. OBJECTIVE: The patient is awake, alert, and conversant. He is now on 40% FiO2. Blood pressure 125/74, heart rate 90, respiratory rate 18, oxygen saturation 100%.HEENT: Pupils are equal and reactive. Oropharynx is clear. Neck: Is supple. Chest: Reveals occasional crackles bilaterally. Cardiac: S1-S2. Abdomen: Soft without hepatosplenomegaly. Extremities: Without edema. LABORATORIES: Chest x-ray reveals continued improvement and aeration of the lower lobes with remaining infiltrates still present. Arterial blood gas, pH 7.47, pCO2 of 39, PO2 of 108 on 50% Ventimask. Immunoglobulin levels reveal an IgG level which is reduced at 524, an IgM level which is reduced at 15. IMPRESSION: A 63-year-old with 1. Multiple myeloma. 2. Acute renal failure. 3. Resolving acute liver failure. 4. Pulmonary edema. 5. Acute hypoxemic respiratory failure with continued slow improvement. RECOMMENDATIONS: 1. Continue to wean oxygen as tolerated. 2. Continue dialysis as needed for fluid overload. 3. Followup chest x-ray tomorrow morning. cc: Brien Archer MD
[2018-09-27] MEDS: XOPENEX NEB INH SCH ×6 (03:39→23:57)
[2018-09-27] MEDS: CARDIZEM 125 MG in NS 100 ML IV SCH (03:50)
[2018-09-27] MEDS: HEPARIN SUBQ SCH ×3 (04:17→20:00)
[2018-09-27 05:08] LABS: ALLEN TEST YES; BE 6.8 mmoll (-3.0-3.0); BLOOD TYPE ARTERIAL; HCO3-(ACT) 30.2 mmoll (20.0-26.0); METHB 1.5 % (0.0-1.5); O2(CT) 10.1 mL/dL (15.0-23.0); O2HB 95.4 % (95.0-99.0); PCO2(98.6) 33 mmHg (35-45); PO2(98.6) 99 mmHg (60-100); SAMPLE BLOOD; SAO2 99.4 % (95.0-100.0); THB 7.4 g/dL (11.5-17.4)
[2018-09-27 05:09] LABS: MODALITY VENTIMASK; pH(98.6) 7.56 (7.35-7.45)
[2018-09-27] MEDS: PRILOSEC PO SCH (06:07)
[2018-09-27 06:15] LABS: ALB/GLOB RATIO 0.4; ALBUMIN 2.3 g/dL (3.5-5.0); CREATININE 3.1 mg/dL (0.7-1.2); POTASSIUM 3.3 mmol/L (3.5-5.1); TOTAL BILIRUBIN 1.96 mg/dL (0.20-1.00); TOTAL PROTEIN 8.1 g/dL (6.3-8.3)
--- NOTE | 2018-09-27 07:11 | Diag Imaging Result Doc PS360 ---
EXAM: CHEST-PORTABLE 09/27/2018 HISTORY: abnormal exam TECHNIQUE: AP portable at 0528 COMMENT: There are ill-defined opacities throughout most of the left lung and the right base. There is a right internal jugular central venous catheter with its tip in the superior vena cava just above the right atrium. Compared to the previous examination of 09/26/2018 there has apparently been mild improvement. There has certainly been improvement over the right base since 09/25/2018. IMPRESSION: Improving pneumonia and/or pulmonary edema. Electronically signed by Navjot Lundberg 09/27/2018 7:09 AM
[2018-09-27 07:15] LABS: CALCIUM 7.6 mg/dL (8.8-10.2)
--- NOTE | 2018-09-27 08:01 | Diag Imaging Result Doc PS360 ---
EXAM: ABDOMEN FLAT/UPRIGHT 09/27/2018 HISTORY: ileus TECHNIQUE: Flat and upright portable at 0530 COMMENT: There is a right internal jugular central venous catheter with its tip just above the right atrium. There is gas in the transverse and sigmoid colon. The stomach and small bowel are not distended. There are phleboliths in the pelvis. There is no evidence organomegaly or mass. Compared to 2018 there is generally less bowel gas. IMPRESSION: No evidence of acute disease. Electronically signed by Navjot Lundberg 09/27/2018 7:59 AM
[2018-09-27] MEDS: ZYVOX PO SCH ×2 (08:51→20:00)
[2018-09-27] MEDS: CARDIZEM CD PO SCH (08:51)
[2018-09-27] MEDS: SODIUM BICARBONATE PO SCH ×2 (08:51→20:00)
[2018-09-27] MEDS: DULCOLAX PR SCH (08:52)
--- NOTE | 2018-09-27 10:55 | PULMONOLOGY PROGRESS NOTE ---
DATE: 09/27/2018 SUBJECTIVE: Patient is awake, alert, and conversant. He reports his sputum production has markedly diminished. He has tolerated p.o. intake. The patient saturation was 98% on 6 L nasal cannula, which was removed during the visit without significant decline in saturation. OBJECTIVE: Vital Signs: Maximum temperature in the last 24 hours 99.4 degrees. Blood pressure 136/76, heart rate 84, respiration rate 16, oxygen saturation 97%. HEENT: Pupils are equal and reactive. Oropharynx appears clear. Neck: Supple. Chest: Reveals minimal crackles in the lung bases. Cardiac: S1-S2. Abdomen: Soft. Extremities: Reveal trace edema. LABORATORIES: Chest x-ray reveals continued decrease in bilateral infiltrates/edema. White blood count not obtained today. Arterial blood gas on 40% Ventimask, pH 7.56, pCO2 of 33, PO2 of 99. IMPRESSION: A 63-year-old with: 1. Multiple myeloma. 2. Acute hypoxemic respiratory failure. 3. Acute renal failure. 4. Resolving acute liver failure. 5. Resolving pulmonary edema. RECOMMENDATION: 1. Continue to wean oxygen as tolerated. He is currently on room air, seeing if his oxygen saturation does decline. 2. Dialysis as per Nephrology Service. 3. Physical therapy. The patient needs to be mobilized in and out of bed. 4. Consider discontinuing Calderon catheter if okay with the Nephrology Service. cc: Brien Archer MD
--- NOTE | 2018-09-27 11:49 | PROGRESS NOTE ---
DATE: 09/27/2018 SUBJECTIVE: Patient resting in bed. The patient is seated on the chair. Not in any obvious distress. OBJECTIVE: Vital signs: Temperature is 99.3 degrees, pulse is 98, respiratory rate is 20, blood pressure is 129/74, oxygen saturation is 100%. HEENT: He is atraumatic, normocephalic. Cardiovascular: S1, S2. Respiratory system: Has evidence of good air entry bilaterally. Abdomen: Soft. Nontender. No masses felt. Extremities: No evidence of edema. Central nervous system: No obvious focal deficit noted. LABS: AB.56./33/99/9.4%. Chemistry: Sodium is 138, potassium 3.3, chloride is 97, bicarb 24, BUN is 21, creatinine 2.1. X-ray chest shows evidence of improving pneumonia and/or pulmonary edema. ASSESSMENT AND PLAN: 1. Acute respiratory failure. Continue supplemental oxygen. Continue to follow the patient clinically. Pulmonary following. 2. Pneumonia. Continue antibiotics. 3. Acute kidney injury. Continue hemodialysis as recommended by Nephrology. 4. Multiple myeloma. Aware. 5. Tachyarrhythmia. Cardizem infusion discontinued .Patient on oral agent. Cardiology following. 6. Deep vein thrombosis prophylaxis. The patient is on heparin. 7. Disposition. Patient can be transferred to the floor. cc: Wilmer Benson MD [facility]
[2018-09-27] MEDS: ZOFRAN IV PRN ×2 (12:50→22:11)
--- NOTE | 2018-09-27 14:39 | PROGRESS NOTE ---
DATE: 09/27/2018 SUBJECTIVE: Patient is sitting up in a chair, in no acute distress. He states he is having bowel movements. He reports loose stools. OBJECTIVE: Vital Signs: Temperature is 98.1 degrees, pulse 85, respirations 22, blood pressure 138/76. General: Patient is awake, alert, no acute distress. Abdomen: Soft, nontender. Positive bowel sounds. LABORATORY: Hematology 11.44, hemoglobin 8.0, hematocrit 24.4, MCV 90.0, platelet 136,000. Chemistry: Sodium 138, potassium 3.3, chloride 97, CO2 24, BUN 21, creatinine 3.1, calcium 7.6, total bilirubin 1.96, AST 36, ALT 37, alkaline phosphatase 80. Abdominal x-ray today showed gas in the transverse and sigmoid colon. Stomach and small bowel were not distended. Compared to prior x-ray there was less bowel gas. ASSESSMENT AND PLAN: 1. Acute respiratory failure. He is on oxygen. Pulmonary is following. I believe they are trying to wean his oxygen down. 2. Pneumonia. On antibiotics. 3. Acute kidney injury. Patient has received dialysis. Following with Nephrology. 4. Multiple myeloma. Following with Dr. Kaminski. 5. Questionable ileus. Patient's x-ray has improved. Patient is having bowel movements. They are loose. He has a soft abdomen and positive bowel sounds. Will continue to monitor. Will continue to follow during this hospital course and further plans will be made according to his progress. I have discussed this case with Dr. Moreno. Dictated by MELISA Kirkpatrick for Sonu Moreno MD cc: MELISA Olivier MD
[2018-09-27] MEDS: MAXIPIME 1 GM in NS 50 ML IV SCH (19:40)
--- NOTE | 2018-09-27 21:35 | NEPHROLOGY PROGRESS NOTE ---
DATE: 09/27/2018 SUBJECTIVE: He has no shortness of breath, nausea or vomiting, chest discomfort, etc. He is still on a face mask. OBJECTIVE: His exam was performed at approximately 0630.Vital signs: Blood pressure 120/66, heart rate 92, respirations 20, afebrile. Generally: No acute distress. Skin: Warm and dry. HEENT: Conjunctivae are pink. Oropharynx is moist. Neck: Neck veins are not distended. Cardiovascular: Heart is irregular with a short systolic murmur. Lungs: Equal breath sounds. No crackles or wheezes. Abdomen: Soft, nontender. Bowel sounds present. Extremities: No edema, clubbing, or cyanosis. IMPRESSION: Acute kidney injury, most likely acute tubular necrosis. He appears euvolemic on exam today. We will hold dialysis. Electrolytes and acid-base are acceptable. No changes. cc: Giles Valdez MD
--- NOTE | 2018-09-27 21:37 | INFECTIOUS DISEASE PROGRESS NO ---
DATE: 09/27/2018 PRESENT ILLNESS: The patient has a pneumonia and an immunoglobulin deficiency. All of his blood cultures except one are negative. The positive blood culture grew a coag- negative staph which is a contaminant. MEDICATION: The patient is receiving cefepime and Zyvox. This is the third day of treatment with both these agents. The patient's blood culture growing a coag-negative staph is a contaminant and, as such, it does not require treatment with antibiotics. PHYSICAL EXAMINATION: Vital Signs: Temperature is 99.2, pulse 92, respirations 24, blood pressure 119/71. General: This is a somewhat ill-appearing, middle-aged male. He is in no acute distress. Head, Eyes, Ears, Nose and Throat: He can hear my spoken words and see near objects. He does not have any white patches on his tongue. Neck: The patient has a catheter in place. The site is not swollen or draining. Lungs: Clear to auscultation. Cardiovascular: Regular heart rate. Abdomen: Somewhat s protuberant, but it is soft and it is not tender. Neurologic: The patient is awake. He can move his extremities. There is no tremor. LAB AND X-RAY: Blood gases show a pH of 7.56, a PO2 of 99 and a pCO2 of 33. Creatinine is 3.1. GFR is 25. Bilirubin is 1.96. Swab for influenza is negative. The patient's IgG level is 524. The IgA level is 2409. Chest x-ray shows improvement in the patient's infiltrates. ASSESSMENT AND PLAN: The patient has a pneumonia which is getting better. He also has an immunoglobulin G partial deficiency. He received IVIG yesterday. Regarding the patient's pneumonia. I plan to continue with his current antibiotics, namely cefepime and Zyvox. COMORBIDITIES: Multiple myeloma, immunoglobulin deficiency, gastroesophageal reflux disease, and esophagitis. cc: Los Presley MD [facility]
[2018-09-28] MEDS: XOPENEX NEB INH SCH ×4 (04:41→19:10)
[2018-09-28] MEDS: HEPARIN SUBQ SCH ×3 (04:59→20:48)
[2018-09-28] MEDS: TYLENOL PO PRN (04:59)
[2018-09-28 05:26] LABS: ALB/GLOB RATIO 0.5; ALBUMIN 2.9 g/dL (3.5-5.0); CALCIUM 7.6 mg/dL (8.8-10.2); CREATININE 4.1 mg/dL (0.7-1.2); POTASSIUM 3.5 mmol/L (3.5-5.1); TOTAL BILIRUBIN 1.65 mg/dL (0.20-1.00); TOTAL PROTEIN 8.8 g/dL (6.3-8.3)
[2018-09-28] MEDS ORDERED: HEPARIN IV PRN (05:48)
[2018-09-28] MEDS ORDERED: TIGHT: 0.2 ML/HR FOR DIALYSIS MISC PRN (05:48)
[2018-09-28] MEDS ORDERED: NS 2,000 ML MISC PRN (05:48)
[2018-09-28] MEDS: PRILOSEC PO SCH (06:41)
[2018-09-28] MEDS: ZOFRAN IV PRN (07:48)
[2018-09-28] MEDS: SODIUM BICARBONATE PO SCH ×2 (08:04→20:48)
[2018-09-28] MEDS: CARDIZEM CD PO SCH (08:04)
[2018-09-28] MEDS: ZYVOX PO SCH (08:04)
[2018-09-28] MEDS: DULCOLAX PR SCH (08:05)
--- NOTE | 2018-09-28 11:11 | HEMO/ONC PROGRESS NOTE ---
DATE: 09/28/2018 SUBJECTIVE: Patient continues to feel better. Continues to slowly improve. OBJECTIVE: Vital signs: Temperature 97.7 degrees, heart rate 84, respiratory rate 20, blood pressure 136/71, sat 97% on room air. General: Patient is awake, lying in bed, no acute distress noted. HEENT: Anicteric. Pupils PERRLA. Mucous membranes appear to be moist. Chest: Bilateral breath sounds with minimal crackles bilaterally. Cardiovascular: S1, S2. Abdomen: Soft, nontender. Bowel sounds present in all 4 quadrants. Neurologic: Alert and orient x3. No focal deficits noted. LABORATORY DATA: White count 3.5, potassium 3.5, BUN 29, creatinine 4.1. ASSESSMENT AND PLAN: 1. Multiple myeloma: Continue waiting on patient to improve at this time. Once patient is discharged and back to baseline, we will consider restarting treatment at that time. 2. Acute hypoxemic respiratory failure: Patient's shortness of breath continues to improve. Continue recommendations per primary medical team and pulmonology. 3. Pneumonia: Continue antibiotics as ordered. 4. Acute kidney injury: Continue recommendations per Nephrology. 5. Anemia: Hemoglobin and hematocrit continue to be stable. Continue to monitor closely. Continue to transfuse as needed. 6. Deep venous thrombosis prophylaxis: Continue heparin as ordered. 7. Supportive care: Continue to have the patient get out of bed as much as possible. The patient to continue exercises as instructed. Dictated by MELISA Baca for Kvng Kaminski MD Patient seen and examined. Continue current management for acute renal failure , sepsis and respiratory failure. He is status post IVIG. He does not require his next dose for 4 weeks. No other recommendations from a hematology standpoint at the current time. Kvng Kaminski M.D. cc: MELISA Baca MD [facility]
--- NOTE | 2018-09-28 13:02 | PROGRESS NOTE ---
DATE: 09/28/2018 TIME SEEN: 0620 hours. SUBJECTIVE: Mr. Majano states that he is feeling just a little bit better, that his fever broke during the night. He denies any pain or increased work of breathing. OBJECTIVE: His most recent vital signs: His last temperature 98.1, highest temperature had been 100.3, blood pressure 158/76, heart rate 91, respirations are 22. He is on room air. Last recorded saturation is 95%. He has had 800 in; 805 mL out. General: On physical examination, this is a 63-year-old male resting quietly in bed. He appears chronically ill, though no acute distress. Skin: Warm and dry. HEENT: Normocephalic, atraumatic. Conjunctiva is pale. He has KRIS. Mucous membranes are dry. Neck: Supple. Trachea midline. No evidence of JVD. Does have a Vas-Cath to the right IJ. Cardiovascular: Regular rate and rhythm. He has an S4. Lungs: Clear to auscultation bilaterally. Equal excursion on O2. Abdomen: Soft, nontender. Positive bowel sounds. Genitourinary: Not inspected. Patient has minimal urine out. Extremities: Have no edema, no clubbing or cyanosis. Neurological: He is awake and alert x2. LABS: Sodium 139, potassium 3.5, chloride 97, CO2 25, BUN 29, creatinine 4.1, glucose 92. His anion gap is 17, calcium 7.6, albumin 2.9. White count 11.44, hemoglobin 8, hematocrit 24.4 with a platelet count of 136. Total bilirubin is 1.65, AST 235, ALT 173, alkaline phosphatase 270. ABGs this a.m. reveal pH 7.56, CO2 33 PO2 99, bicarbonate 30.2 on a 40% Ventimask. ASSESSMENT AND PLAN: 1. Acute kidney injury, most likely acute tubular necrosis. The patient remains euvolemic after dialysis the day before. He is fluid volume positive today. We will plan for dialysis. He is to be placed on a 2 potassium bath, dialyzed for 3-1/2 hours. We will attempt to pull 2 liters of ultrafiltration as tolerated. 2. Electrolytes and acid-base balance. These are acceptable. 3. Anemia: This is low, but stable. I would like to thank you for allowing us to follow with this patient. Dictated by MELISA Vargas for Giles Valdez MD Face to face encounter, data reviewed, discussed with Angela Hammer on 09/28/18. I agree with the above assessment and plan of care. cc: MELISA Vargas MD [facility]
[2018-09-28] MEDS: DILAUDID IV PRN (15:01)
--- NOTE | 2018-09-28 15:43 | PROGRESS NOTE ---
DATE: 09/28/2018 SUBJECTIVE: The patient is resting in bed, not in any obvious distress. Has mother present in the room. OBJECTIVE: Vital signs: Vital signs are as follows: Temperature is 97.9 degrees, pulse is 100, respiratory rate is 24 and blood pressure is 132/80 with oxygen saturation 98%. HEENT: He is atraumatic, normocephalic. Cardiovascular system: S1, S2. Respiratory system: Has evidence of good air entry bilaterally. Abdomen: Soft, nontender. No masses felt. Extremities: No evidence of edema. Central nervous system: No obvious focal deficits noted. LABS: Sodium 139, potassium 3.5, chloride is 97, bicarbonate is 25. BUN is 29, creatinine 4.1, AST is 235, ALT 173. ASSESSMENT AND PLAN: 1. Acute respiratory failure. Continue supplemental oxygen. Treat primary pulmonary conditions, specifically pneumonia. Follow the patient's clinical progression. Pulmonary following. 2. Pneumonia. Continue antibiotics. 3. Acute kidney injury. Continue hemodialysis as recommended by Nephrology. 4. Multiple myeloma. Aware. 5. Tachyarrhythmia. Continue oral Cardizem. 6. Transaminitis. Etiology not clear. We will obtain an SHANNON level, ferritin level, hepatitis panel. Also, abdominal ultrasound. 7. Deep vein thrombosis prophylaxis. Heparin. 8. Gastrointestinal prophylaxis. Proton pump inhibitor. cc: Wilmer Benson MD
[2018-09-28] MEDS ORDERED: TEFLARO 600 MG in NS 250 ML IV SCH (18:00)
--- NOTE | 2018-09-28 19:01 | Extremity Venous Study ---
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 REQUEST PHYSICIAN: Payton Escalante MD INDICATIONS: Edema of the left arm. FINDINGS: Deep and superficial veins of left arm and neck were visualized. The deep vessels appear patent with no evidence of intraluminal thrombus. There is, however, acute thrombus noted in the left cephalic vein from the mid upper arm to the elbow. SUMMARY: 1. No deep venous thrombosis seen in the left upper extremity. 2. There is acute superficial venous thrombosis seen of the cephalic vein. cc: MD Payton Galarza MD
--- NOTE | 2018-09-28 19:19 | INFECTIOUS DISEASE PROGRESS NO ---
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 Today there is also a transaminitis. MEDICATIONS: He is on day 3 of cefepime 1 g IV every 24 hours and Zyvox 600 mg by mouth every 12 hours. PHYSICAL EXAMINATION: Vital Signs: Temperature is 98.3, pulse rate 89, respiratory rate 24, blood pressure 136/77. O2 sats 99% on room air. General: This is a chronically ill-appearing middle-aged gentleman. He is lying in bed, currently in no acute distress. HEENT: Atraumatic, normocephalic. Oral mucous membranes are pink and moist. Conjunctivae are pale. Neck: Supple. Trachea is midline. He does have a right intrajugular Vas-Cath with a pigtail central line. Cardiovascular: Heart rate and rhythm are regular. Normal sinus rhythm on the monitor. Pedal and radial pulses are +1 bilaterally. Respiratory: Lung sounds are clear in the upper lobes with rales noted in the mid and bases. Abdomen: Soft, round and bowel sounds are active. Neurologic: He has awake, alert and oriented. Able to move his extremities independently in the bed. LABORATORY AND X-RAY: He has no CBC. Creatinine is 4.1. GFR 18. Total bilirubin is 1.65. AST 235, ALT 173, alkaline phosphatase 270. No imaging reports today. ASSESSMENT AND PLAN: Mr. 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 He is receiving cefepime and Zyvox, which we will discontinue at this time, since Zyvox might be the cause of his transaminitis. We will start Ceftaroline 400mg IV every 12 hours as a renally modified dose. He has had a dose of IVIG on this admission. There is a history of multiple myeloma, followed by Dr. Kaminski, who will follow his immunoglobulin deficiency as well. In the morning, we will check blood work and a chest x-ray. These plans have been discussed with and recommended by Dr. Presley. COMORBIDITIES: For Mr. Majano include multiple myeloma, gastroesophageal reflux disease, and esophagitis. Dictated by MELISA Frye for Los Presley MD This chart was documented by, MELISA Frye and accurately reflects the services performed, treatment plan and medical decisions as attested by the providers signature Lso Presley MD. cc: Los Presley MD MTDD
--- NOTE | 2018-09-28 19:29 | INFECTIOUS DISEASE PROGRESS NO ---
DATE: 09/28/2018 ADDENDUM: The patient's liver function studies are going up. This started since Zyvox and cefepime were started. Of the 2 antibiotics, Zyvox is more likely to cause elevation of liver function tests than cefepime. My plan is to discontinue Zyvox and cefepime and start the patient on ceftaroline, the dose of which will be modified because of the patient's renal failure. cc: Los Presley MD
--- NOTE | 2018-09-28 20:35 | PULMONOLOGY PROGRESS NOTE ---
DATE: 09/28/2018 SUBJECTIVE: The patient is awake, alert, and conversant. He denies cough. He denies sputum production. OBJECTIVE: Vital Signs: Maximum temperature in the last 24 hours 100.3 degrees. Temperature this morning 97.7 degrees. HEENT: Pupils are equal and reactive. Oropharynx is clear. Neck: Supple. Chest: Reveals good air entry bilaterally, with minimal crackles in the bases. Cardiac: S1-S2. Abdomen: Soft, and without hepatosplenomegaly. Extremities: Without edema. LABORATORIES: Sodium 139, potassium 3.5, chloride 97, bicarbonate 25, BUN 29, creatinine 4.1. No new microbiology data. IMPRESSION: 1. A 63-year-old with multiple myeloma. 2. Acute hypoxemic respiratory failure. 3. Acute pulmonary edema. 4. Renal failure. 5. Resolving acute liver failure, with continued elevation in transaminases. DISCUSSION: The patient continues to improve. His sputum production has resolved. His chest x- ray yesterday revealed continued decreasing infiltrates, with minimal infiltrate remaining. He now is without sputum, and he is on room air. His respiratory failure is resolved. RECOMMENDATIONS: 1. Dialysis, as outlined per Nephrology. 2. Continue physical therapy. 3. No new recommendations from a Pulmonary standpoint. Will sign off, but will be available for questions or assistance. cc: Brien Archer MD
[2018-09-28] MEDS: NON-FORMULARY MED 1 EACH in NS 250 ML IV SCH (20:48)
[2018-09-29] MEDS: XOPENEX NEB INH SCH ×6 (05:24→23:20)
[2018-09-29] MEDS: HEPARIN SUBQ SCH ×3 (05:26→20:13)
[2018-09-29] MEDS: PRILOSEC PO SCH (06:06)
--- NOTE | 2018-09-29 06:42 | Diag Imaging Result Doc PS360 ---
EXAM: CHEST-PORTABLE HISTORY: pneumonia TECHNIQUE: Portable chest single view COMPARISON: 09/27/2018 FINDINGS: Poor inspiratory effort. No change in the right jugular line. No pneumothorax. No cardiomegaly. No consolidation. No pleural effusions identified. Decreased interstitial markings in the lower lungs compared to the prior study. IMPRESSION: Interval improvement. Electronically signed by Rupert Drake 09/29/2018 6:40 AM
[2018-09-29] MEDS: NON-FORMULARY MED 1 EACH in NS 250 ML IV SCH ×2 (09:05→20:10)
[2018-09-29] MEDS: DULCOLAX PR SCH (09:06)
[2018-09-29] MEDS: SODIUM BICARBONATE PO SCH ×2 (09:06→20:17)
[2018-09-29] MEDS: CARDIZEM CD PO SCH (09:06)
[2018-09-29 09:38] LABS: BASO% 2.2 % (0.0-0.8); EOS# 0.59 X1000 (0.0-0.7); EOS% 6.5 % (0.0-10.0); HEMATOCRIT 25.4 % (42.0-52.0); IMM GRAN# 0.75 X1000 (0.0-0.04); IMM GRAN% 8.3 % (0.0-0.5); LYMPH# 2.88 X1000 (1.2-3.4); LYMPH% 31.9 % (20.5-51.1); MCH 29.2 PG (27-31); MCHC 31.5 g/dL (33-37); MCV 92.7 FL (81-99); MONO# 2.24 X1000 (0.11-0.59); MONO% 24.8 % (1.7-9.3); MPV 10.4 FL (7.4-10.4); NEUT# 2.36 X1000 (1.4-6.5); NEUT% 26.3 % (42.2-75.2); PLT 91 X1000 (130-400); RBC 2.74 XMIL (4.7-6.1); RDW 16.7 % (11.5-14.5); WBC 9.02 X1000 (4.8-10.8)
[2018-09-29 10:14] LABS: BANDS 10 % (0-1); LYMPHS 34 % (21-51); MONO 12 % (1-9); SEGS 26 % (42-75)
[2018-09-29 10:17] LABS: ALB/GLOB RATIO 0.5; ALBUMIN 3.1 g/dL (3.5-5.0); CALCIUM 7.9 mg/dL (8.8-10.2); CREATININE 3.2 mg/dL (0.7-1.2); POTASSIUM 3.5 mmol/L (3.5-5.1); TOTAL BILIRUBIN 1.49 mg/dL (0.20-1.00); TOTAL PROTEIN 9.4 g/dL (6.3-8.3)
--- NOTE | 2018-09-29 10:37 | Diag Imaging Result Doc PS360 ---
EXAM: US ABDOMEN-COMPLETE HISTORY: transaminitis TECHNIQUE: Abdominal ultrasound COMPARISON: 05/18/2018 FINDINGS: Normal inferior vena cava. No abdominal aortic aneurysm. Normal pancreatic head and body. The pancreatic tail is obscured. No focal hepatic abnormality. The common bile duct measures 7 mm. Normal gallbladder. No stones. There is sludge within the gallbladder. Mild increased renal echotexture. No hydronephrosis. No ascites. The spleen is not enlarged. IMPRESSION: 1.Increased renal echotexture which can be seen with medical renal disease 2.Sludge within the gallbladder Electronically signed by Rupert Drake 09/29/2018 10:35 AM
--- NOTE | 2018-09-29 13:29 | PROGRESS NOTE ---
DATE: 09/29/2018 SUBJECTIVE: Patient resting in bed. No obvious distress. No new complaints today. OBJECTIVE: Vital signs: Temperature 97.5 degrees, pulse 104, respiratory rate 18, blood pressure is 147/59, oxygen is 95%. HEENT: Atraumatic. Normocephalic. Cardiovascular: S1, S2. Respiratory System: Has evidence of good air entry bilaterally. Abdomen: Soft , nontender. No masses felt. Extremities: No evidence of edema. Central nervous system: No obvious focal deficits noted. LABORATORY DATA: WBC is 9.0. Hematocrit 25.4 with a platelet count of 91,000. Sodium is 141, potassium 3.5, chloride is 96, bicarb 23, BUN is 16, creatinine 2.2. AST is 144 , ALT is 156. [place] 1[place] [address]. SHANNON level is negative. ASSESSMENT AND PLAN: 1. Acute respiratory failure. Continue supplemental oxygen. Treat primary lung condition.. Follow up on patient's clinical progression. The pulmonary team is following. 2. Pneumonia. Continue antibiotics. 3. Acute kidney injury. Follow up on renal function. Avoid nephrotoxic agents. Nephrology is following. 4. Multiple myeloma. Aware. 5. Tachyarrhythmia. The patient is on oral Cardizem. 6. Transaminitis. Hepatic function test seems to be improving. His abdominal ultrasound did show evidence of sludge within the gallbladder. I will proceed and obtain a HIDA scan. 7. Elevated ferritin level. Etiology not clear. We will repeat a ferritin level. 8. Deep vein thrombosis prophylaxis. Heparin. 9. Gastrointestinal prophylaxis. Proton pump inhibitors. cc: Wilmer Benson MD MTDIvelisse
--- NOTE | 2018-09-29 13:59 | PROGRESS NOTE ---
DATE: 09/29/2018 SUBJECTIVE: Patient was moved to a room on the 4th floor from the ICU. He currently denies complaints. He states he is hungry. I believe he has had advancement of his diet ordered after gallbladder workup. Patient has had increased elevation in his liver function tests. OBJECTIVE: Vital Signs: Temperature 97.5 degrees, pulse 104, respirations 18, blood pressure 147/79. General: Patient is awake, alert, and in no acute distress. LABORATORY: Hematology shows WBC 9.02, hemoglobin 8, hematocrit 25.4, MCV 92.7, and platelets 91,000. Chemistry: Sodium 141, potassium 3.5, chloride 96, CO2 of 23, BUN 16, creatinine 3.2, glucose 74, calcium 7.9, ferritin 13,223. Total bilirubin 1.49. AST 144. ALT 156. Alkaline phosphatase 211. Ultrasound of the abdomen showed increased renal echotexture with medical renal disease and sludge within the gallbladder, but no noted gallbladder stones. I believe he has a HIDA scan ordered for today. ASSESSMENT AND PLAN: 1. Acute respiratory failure. Patient is on oxygen. 2. Pneumonia on antibiotics. I believe his antibiotics have recently been changed due to his elevated liver enzymes. Dr. Presley is following and has changed his antibiotics. 3. Acute kidney injury, on dialysis following by Nephrology. 4. Multiple myeloma followed by Dr. Kaminski. 5. Transaminitis. His hepatitis profile was negative. Ferritin is elevated. SHANNON was negative. Abdominal ultrasound showed sludge in the gallbladder. Otherwise normal. He has a HIDA scan ordered for today. 6. Recent findings of possible ileus. Patient is having bowel movements although loose. 7. We will continue to follow his liver function tests, possibility of drug-induced liver injury. Continue further workup and further plans to be made as needed. I have discussed this case with Dr. Moreno. Dictated by MELISA Kirkpatrick for Sonu Moreno MD cc: MELISA Olivier MD
[2018-09-29 14:21] LABS: HEPATITIS PROFILE ACUTE SEE COMMENTS
--- NOTE | 2018-09-29 15:40 | INFECTIOUS DISEASE PROGRESS NO ---
DATE: 09/29/2018 PRESENT ILLNESS: Mr. Majano is being treated for pneumonia as well as an immunoglobulin deficiency. He also has a transaminitis which is improving. MEDICATIONS: Today is day 1 of ceftaroline 400 mg IV every 12 hours as a renally modified dose. He has received IVIG on this admission. PHYSICAL EXAMINATION: Vital Signs: Temperature is 97.5 degrees, pulse rate 104 , respiratory rate 18, blood pressure 147/79, O2 saturation is 100% on room air. General: This is a chronically ill- appearing, middle-aged gentleman. He is lying in the bed in no acute distress. HEENT: Atraumatic, normocephalic. Conjunctivae are pale. Oral mucous membranes are pink and moist. Neck: Supple. Trachea is midline. There is a Vas-Cath with a central line pigtail in place to his right Intrajugular. The site is without edema, erythema, or drainage. Respiratory: Lung sounds are clear in the upper lobes, diminished in the bases. Cardiovascular: Heart rate and rhythm are regular and tachycardic, sinus tach on the monitor. Pedal and radial pulses are +1 bilaterally. Abdomen: Soft, round and tender on palpation. Bowel sounds are active. Neurologic: He is awake, alert, oriented, and able to move around independently in the bed. No tremors noted. LABORATORY AND X-RAY: Today his white count is 9.02, hemoglobin 8, platelet count 91,000. Creatinine is 3.2. GFR 24. Today his total bilirubin is 1.49, AST 144, ALT 156 , alkaline phosphatase 211. Chest x-ray shows decreased interstitial markings in the lower lungs. Abdominal ultrasound shows medical renal disease and sludge within the gallbladder. ASSESSMENT AND PLAN: Mr. Majano has been treated for pneumonia as well as an immunoglobulin deficiency. He is receiving ceftaroline after there was a transaminitis yesterday, which we were concerned was caused by Zyvox. There is also a mild thrombocytopenia today. At this point, we will continue ceftaroline as ordered. His liver enzymes seem to be coming down and his chest x- ray is showing interval improvement with decreased interstitial markings. He has multiple myeloma as well as immunoglobulin deficiency. These are being followed by Dr. Kaminski. Plans have been discussed with and recommended by Dr. Presley. COMORBIDITIES: For Mr. Majano include multiple myeloma, gastroesophageal reflux disease and esophagitis. Dictated by MELISA Frye for Los Presley MD This chart was documented by, MELISA Frye and accurately reflects the services performed, treatment plan and medical decisions as attested by the providers signature Los Presley MD. cc: Los Presley MD [facility]
--- NOTE | 2018-09-29 16:19 | NEPHROLOGY PROGRESS NOTE ---
DATE: 09/29/2018 SUBJECTIVE: He is sitting up in bed. He states he feels better today. No nausea, vomiting, or shortness of breath. OBJECTIVE: Vital Signs: Blood pressure 147/79, heart rate 104, respirations 18, afebrile. Generally: No acute distress. Skin: Warm and dry. HEENT: Conjunctivae are pink. Neck: Neck veins are not visible in the erect position. Heart: Regular. No gallops. Lungs: Equal. No crackles. Abdomen: Soft, nontender. Bowel sounds present. Extremities: No edema, clubbing, or cyanosis. IMPRESSION: Acute kidney injury without recovery. We are acting under the presumption that he has acute tubular necrosis. As such, it is certainly possible that he could experience recovery. Urine output is perhaps improved. No dialysis today. Electrolytes and acid-base are acceptable. cc: Giles Valdez MD
--- NOTE | 2018-09-29 18:40 | Diag Imaging Result Doc PS360 ---
EXAM: HIDA SCAN W/ EJECTION FRACTION - 09/29/2018 HISTORY: r/o biliary dyskinesia TECHNIQUE: HIDA scan with ejection fraction. Exam performed using 4.4 mCi technetium 99m Choletec administered intravenously. COMPARISON: None. FINDINGS: There is prompt tracer uptake and excretion by the liver with prompt appearance of tracer in small bowel. There is delayed visualization of gallbladder, with gallbladder activity appearing between the 30 minute and one hour images. Gallbladder ejection fraction is calculated following administration of by mouth liquid ensure. The ejection fraction is calculated at 52%. IMPRESSION: Delayed visualization of gallbladder. Within normal limits gallbladder ejection fraction at 52%. Electronically signed by Driss Pinedo 09/29/2018 6:38 PM
[2018-09-29] MEDS: ZOFRAN IV PRN (20:17)
[2018-09-30] MEDS: XOPENEX NEB INH SCH ×6 (03:20→23:05)
[2018-09-30] MEDS: HEPARIN SUBQ SCH ×3 (06:11→20:04)
[2018-09-30] MEDS: PRILOSEC PO SCH (06:11)
--- NOTE | 2018-09-30 06:35 | Diag Imaging Result Doc PS360 ---
EXAM: CHEST-1 VIEW HISTORY: pneumonia TECHNIQUE: Chest single view COMPARISON: 09/29/2018 FINDINGS: The lungs are well expanded. The heart is not enlarged. No change in the right jugular line. The vessels are not distended. Continued decreased interstitial markings in the lower lungs. No effusion identified. IMPRESSION: Mild interval improvement Electronically signed by Rupert Drake 09/30/2018 6:32 AM
[2018-09-30 06:37] LABS: BASO# 0.17 X1000 (0.0-0.2); BASO% 1.9 % (0.0-0.8); EOS# 0.54 X1000 (0.0-0.7); EOS% 6.2 % (0.0-10.0); HEMATOCRIT 21.7 % (42.0-52.0); HEMOGLOBIN 6.8 g/dL (14.0-18.0); IMM GRAN# 0.75 X1000 (0.0-0.04); IMM GRAN% 8.6 % (0.0-0.5); LYMPH# 2.62 X1000 (1.2-3.4); MCH 28.8 PG (27-31); MCHC 31.3 g/dL (33-37); MCV 91.9 FL (81-99); MONO# 2.35 X1000 (0.11-0.59); MONO% 26.9 % (1.7-9.3); MPV 10.5 FL (7.4-10.4); NEUT# 2.29 X1000 (1.4-6.5); NEUT% 26.4 % (42.2-75.2); PLT 74 X1000 (130-400); RBC 2.36 XMIL (4.7-6.1); RDW 16.2 % (11.5-14.5); WBC 8.72 X1000 (4.8-10.8)
[2018-09-30 06:52] LABS: ALB/GLOB RATIO 0.5; CALCIUM 7.3 mg/dL (8.8-10.2); CREATININE 4.2 mg/dL (0.7-1.2); POTASSIUM 2.9 mmol/L (3.5-5.1); TOTAL BILIRUBIN 1.25 mg/dL (0.20-1.00); TOTAL PROTEIN 9.2 g/dL (6.3-8.3)
[2018-09-30 07:20] LABS: BANDS 8 % (0-1); LYMPHS 46 % (21-51); MONO 4 % (1-9); SEGS 36 % (42-75)
[2018-09-30] MEDS ORDERED: HEPARIN IV PRN (07:24)
[2018-09-30] MEDS ORDERED: NS 2,000 ML MISC PRN (07:24)
[2018-09-30] MEDS: DULCOLAX PR SCH (08:17)
[2018-09-30] MEDS: SODIUM BICARBONATE PO SCH ×2 (13:00→23:18)
[2018-09-30] MEDS: CARDIZEM CD PO SCH (13:00)
[2018-09-30] MEDS: PERCOCET-5 PO PRN (13:07)
--- NOTE | 2018-09-30 14:48 | PROGRESS NOTE ---
DATE: 09/30/2018 SUBJECTIVE: The patient had dialysis this morning. He states he is feeling better. Patient has had ultrasound of the abdomen and HIDA scan done. Ultrasound of the abdomen had shown sludge within the gallbladder although no stones were seen, and HIDA scan showed delayed visualization of the gallbladder but within normal limit ejection fraction of 52%. Patient has had continued elevation of his liver function tests. Ferritin is elevated. Iron percent saturation is over 50%. OBJECTIVE: Vital Signs: Temperature 98.1 degrees, pulse 93, respirations 12, blood pressure 151/76. General: Patient is awake, alert, in no acute distress. He has family at the bedside. LABORATORY DATA: Hematology: WBC 8.72, hemoglobin 6.8, hematocrit 21.7, MCV 91.9, platelets 74,000. Chemistry: Sodium 136, potassium 2.9, chloride 95, CO2 of 23, BUN 22, creatinine 4.2, glucose 95, calcium 7.3, ferritin 12,543, total bilirubin 1.25, AST 160, ALT 172 , alkaline phosphatase 191. ASSESSMENT AND PLAN: 1. Pneumonia. On antibiotics. 2. Acute kidney injury. On dialysis. Nephrology following. 3. Multiple myeloma. Followed by Dr. Kaminski. 4. Transaminitis. Hepatitis profile was negative. Ferritin is elevated. SHANNON was negative. Iron percent saturation was over 50%. Abdominal ultrasound that showed sludge in the gallbladder. HIDA scan showed normal ejection fraction. We will check HFE gene, and continue to monitor liver enzymes. There was question about possible drug-induced liver injury. I believe his antibiotics were changed. We will continue to follow and further plans will be made according to his progress. I have discussed this case with Dr. Moreno. Dictated by MELISA Kirkpatrick for Sonu Moreno MD cc: MELISA Olivier [facility]
--- NOTE | 2018-09-30 15:18 | PROGRESS NOTE ---
DATE: 09/30/2018 SUBJECTIVE: This morning, Mr. Majano refers to be doing fairly okay. Denies any acute complaints. OBJECTIVE: Vital signs: His blood pressure is 151/76, pulse 93, respirations 12, temperature 98.1. General: Mr. Majano is a 63-year-old gentleman. He was in bed, in no distress. Mr. Majano is chronically ill looking. Mucosa is pink and moist. Anicteric and acyanotic. Neck is supple. Chest is clear to auscultation. No crepitations. No rhonchi. Cardiovascular: Regular rate and rhythm. There is no murmur, no rubs, no gallops. Abdomen: Soft, nontender. Bowel sounds present. Extremities: No pedal edema. 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 He does have a dialysis catheter in the right jugular vein. DIAGNOSTIC DATA: CBC shows WBC of 8.72, hemoglobin 6.8, platelet count 74, there are 8% bands, 2.1 identified cells. CURRENT MEDICATIONS: Also have been reviewed. Teflaro is the antibiotic, and today is day 2 on that. ASSESSMENT: 1. Sepsis on presentation. Parameters have significantly improved. 2. Pneumonia with immunoglobulin deficiency. The patient is currently on Teflaro. ID is onboard. 3. History of multiple myeloma. Follows up with Dr. Kaminski. 4. Acute kidney injury, presumably acute tubular necrosis with no recovery. The patient is on dialysis. The patient's urinalysis is also remarkable for protein which raises the concern of possibility of myeloma kidney as well in a patient with a history of multiple myeloma and acute renal failure. Nephrology is onboard, and we will defer any recommendations to them. For now, the patient is getting dialysis. 5. Transaminitis. Continue to follow. 6. Elevated ferritin level likely due to multiple transfusions in the past and as an acute phase reactant to malignancy and chronic conditions. We will continue to follow. I do not think this reflects any hemochromatosis; however, I would follow up with further recommendations from Hematology/Oncology. cc: MD JOSÉ MIGUEL Rice
[2018-09-30] MEDS: ZOFRAN IV PRN (20:04)
--- NOTE | 2018-09-30 21:11 | NEPHROLOGY PROGRESS NOTE ---
DATE: 09/30/2018 SUBJECTIVE: His blood pressure was low on dialysis and had transient loss of consciousness. He does not remember it. He states he feels well and had no symptoms with his treatment. He ate his dinner. No nausea, vomiting, shortness of breath. OBJECTIVE: Vital Signs: Blood pressure 151/76, heart rate 91, respirations 22, afebrile. General: No acute distress. Skin: Warm and dry. Eyes: Conjunctivae are pink. Neck: Neck veins are not distended. Heart: Regular. Lungs: Equal. No crackles. Abdomen: Soft, nontender. Flat. Extremities: Have no edema, clubbing or cyanosis. IMPRESSION: Acute kidney injury. No recovery. He had dialysis today. No further treatment over the weekend. Electrolytes found disclosed potassium of 2.9 and he was treated with a 4 potassium bath. cc: Giles Valdez MD
--- NOTE | 2018-09-30 22:58 | HEMO/ONC PROGRESS NOTE ---
DATE: 09/30/2018 SUBJECTIVE: Patient seemed improved. The patient says he is feeling better. Denies any new complaints at this time. OBJECTIVE: Vital Signs: Temperature 98.6, heart rate 97, respiratory rate 14, blood pressure General: The patient is awake, lying in bed. No acute distress noted. HEENT : Anicteric. Mucous membranes moist. Cardiovascular: S1-S2. Regular rate and rhythm. Chest: Bilateral breath sounds clear to auscultation. Abdomen: Soft, nontender. Bowel sounds present in all 4 quadrants. Neurologic: Alert and oriented x3. No focal deficits noted. LABORATORY DATA: White blood cell count is 8.72, hemoglobin 6.8, hematocrit 21.7, platelets are 74. Potassium 2.9, BUN 22, creatinine 4.2. ASSESSMENT AND PLAN: 1. Multiple myeloma: Continue to wait on patient to improve. Continue to hold treatment right now. We will continue to monitor. 2. Pneumonia: Continue recommendations by Infectious Disease. 3. Acute kidney injury: Continue recommendations per Nephrology. 4. Elevated ferritin level: This is an acute phase reactant due to liver injury and blood transfusions. The patient's ferritin levels and iron saturations have been all normal in the past in the office. Continue to monitor. Dictated by MELISA Baca for Kvng Kaminski MD cc: MELISA Baca MD MTDD
[2018-09-30] MEDS: NON-FORMULARY MED 1 EACH in NS 250 ML IV SCH (23:18)
[2018-10-01] MEDS: NON-FORMULARY MED 1 EACH in NS 250 ML IV SCH ×2 (00:11→13:20)
[2018-10-01] MEDS: XOPENEX NEB INH SCH ×6 (03:05→23:05)
[2018-10-01] MEDS: PRILOSEC PO SCH ×2 (05:57→07:37)
[2018-10-01] MEDS: HEPARIN SUBQ SCH ×3 (05:57→20:38)
[2018-10-01 06:42] LABS: BASO# 0.23 X1000 (0.0-0.2); BASO% 2.7 % (0.0-0.8); EOS# 0.47 X1000 (0.0-0.7); EOS% 5.4 % (0.0-10.0); HEMOGLOBIN 6.8 g/dL (14.0-18.0); IMM GRAN# 0.79 X1000 (0.0-0.04); IMM GRAN% 9.2 % (0.0-0.5); LYMPH# 2.58 X1000 (1.2-3.4); LYMPH% 29.9 % (20.5-51.1); MCH 28.7 PG (27-31); MCHC 30.9 g/dL (33-37); MCV 92.8 FL (81-99); MONO# 2.47 X1000 (0.11-0.59); MONO% 28.6 % (1.7-9.3); NEUT# 2.09 X1000 (1.4-6.5); NEUT% 24.2 % (42.2-75.2); PLT 64 X1000 (130-400); RBC 2.37 XMIL (4.7-6.1); RDW 16.8 % (11.5-14.5); WBC 8.63 X1000 (4.8-10.8)
[2018-10-01 07:19] LABS: BANDS 2 % (0-1); EOS 2 % (1-10); LYMPHS 38 % (21-51); MONO 18 % (1-9); SEGS 28 % (42-75)
[2018-10-01 08:06] LABS: ALB/GLOB RATIO 0.4; CALCIUM 7.7 mg/dL (8.8-10.2); CREATININE 3.7 mg/dL (0.7-1.2); POTASSIUM 3.7 mmol/L (3.5-5.1); TOTAL BILIRUBIN 1.26 mg/dL (0.20-1.00); TOTAL PROTEIN 10.3 g/dL (6.3-8.3)
[2018-10-01] MEDS: SODIUM BICARBONATE PO SCH ×2 (09:00→20:38)
[2018-10-01] MEDS: DULCOLAX PR SCH (09:01)
[2018-10-01] MEDS: CARDIZEM CD PO SCH (09:01)
--- NOTE | 2018-10-01 12:55 | PROGRESS NOTE ---
DATE: 10/01/2018 SUBJECTIVE: The patient was resting comfortably. He denies any abdominal pain , abdominal cramps. His appetite is good. He is eating well. He has not had any nausea, vomiting associated with his meals. OBJECTIVE: Vitals today: Temperature 99.3 degrees, pulse was 98 per minute, breathing 18, blood pressure 131/76. Abdomen: Full, soft, nontender. Bowel sounds are audible. LABORATORIES: Reviewed, which showed transaminases are trending down. His AST 149, dropped from 160 yesterday. His ALT is 159. Alkaline phosphate today dropped 156 from 191. His total bilirubin was 1.26. So far workup has been negative for transaminitis. ASSESSMENT AND PLAN: At this point, no new suggestion except to continue to recheck his labs and maintain current treatment. We will follow. Although his ultrasound of the abdomen did show some sludge in his gallbladder, did not show any signs of acute cholecystitis. HIDA scan may help us to make the diagnosis of acute cholecystitis if his transaminases do not continue to go down or has any symptoms of abdominal pain, nausea or vomiting. We will follow. cc: Sonu Moreno MD MTDIvelisse
[2018-10-01 14:05] LABS: IRON SATURATION 52 %; TIBC 114 ug/dL; TOTAL IRON 59 ug/dL (53-167); UNBOUND IRON 55 ug/dL (112-346)
--- NOTE | 2018-10-01 14:10 | PROGRESS NOTE ---
DATE: 10/01/2018 SUBJECTIVE: Patient resting in bed. Not in any obvious distress. OBJECTIVE: Vital signs: Temperature is 99.3 degrees, pulse 98, respiratory rate 18, blood pressure is 131/76, O2 saturation is 100%. HEENT: Atraumatic, normocephalic. Cardiovascular: S1, S2. Respiratory system: Has evidence of good air entry bilaterally. Abdomen: Soft, nontender. No masses felt. Extremities: No evidence of edema. Central nervous system: No obvious focal deficits noted. LABS: WBC is 8.6, hematocrit is 22 with a platelet count of 64,000. Chemistry: Sodium is 135, potassium 3.7, chloride is 91, bicarb is 23, BUN 15, creatinine 2.7. HIDA scan shows delayed visualization of the gallbladder and also mentions within normal limits gallbladder ejection fraction of 50%. ASSESSMENT AND PLAN: 1. Acute respiratory failure. Maintain patient on supplemental oxygen. Treat primary lung condition. Follow up on patient's clinical progression. Pulmonary following. 2. Pneumonia. Continue antibiotics. 3. Acute kidney injury. Follow up on renal function. Avoid nephrotoxic agents. Nephrology following. 4. Multiple myeloma. Aware. 5. Tachyarrhythmia. Continue oral Cardizem. 6. Transaminitis. HIDA scan shows delayed visualization of the gallbladder. The patient's liver function tests are still abnormal. Will consult with surgery. 7. Elevated ferritin level. Will obtain more iron studies and also initiate genetic workup for hemochromatosis. 8. DVT prophylaxis. Heparin. 9. Gastrointestinal prophylaxis. Proton pump inhibitor. 10. Anemia. We will type, cross, transfuse 1 unit of packed red blood cells. cc: Wilmer Benson MD
[2018-10-01] MEDS: PERCOCET-5 PO PRN (17:38)
[2018-10-02] MEDS: XOPENEX NEB INH SCH ×6 (03:00→23:17)
[2018-10-02] MEDS: NON-FORMULARY MED 1 EACH in NS 250 ML IV SCH ×2 (03:13→15:54)
[2018-10-02] MEDS: ZOFRAN IV PRN (04:11)
[2018-10-02] MEDS: HEPARIN SUBQ SCH (05:33)
[2018-10-02] MEDS: PRILOSEC PO SCH ×2 (05:33→09:48)
[2018-10-02] MEDS ORDERED: HEPARIN IV PRN (05:53)
[2018-10-02] MEDS ORDERED: TIGHT: 0.2 ML/HR FOR DIALYSIS MISC PRN (05:53)
[2018-10-02] MEDS ORDERED: NS 2,000 ML MISC PRN (05:53)
[2018-10-02 06:26] LABS: HEMOGLOBIN 6.6 g/dL (14.0-18.0); MCH 29.7 PG (27-31); MCHC 31.4 g/dL (33-37); MCV 94.6 FL (81-99); MPV 10.8 FL (7.4-10.4); RBC 2.22 XMIL (4.7-6.1); RDW 16.8 % (11.5-14.5); WBC 7.27 X1000 (4.8-10.8)
[2018-10-02 06:44] LABS: ALBUMIN 2.8 g/dL (3.5-5.0); CALCIUM 7.3 mg/dL (8.8-10.2); CREATININE 5.2 mg/dL (0.7-1.2); POTASSIUM 3.9 mmol/L (3.5-5.1)
[2018-10-02 08:51] LABS: INR 1.3; PROTIME 17.2 Seconds (11.0-16.0)
[2018-10-02 09:15] LABS: PTT 102.7 Seconds (22.3-41.8)
[2018-10-02] MEDS: DULCOLAX PR SCH (09:48)
[2018-10-02] MEDS: CARDIZEM CD PO SCH (09:48)
[2018-10-02] MEDS: SODIUM BICARBONATE PO SCH ×2 (09:48→23:53)
--- NOTE | 2018-10-02 10:57 | NEPHROLOGY PROGRESS NOTE ---
DATE: 10/02/2018 TIME SEEN: 0710. SUBJECTIVE: Mr. Majano is resting quietly in bed. States that he is feeling just a little bit better. Thinks he is making more urine. OBJECTIVE: His most recent vital signs: Temperature 99.1 degrees, blood pressure 121/71, heart rate 88 respirations 20. He is on room air. Last recorded saturation is 98%. Intake and output: He has had 890 in, 275 mL out to Calderon catheter. PHYSICAL EXAMINATION: General: This is a 63-year-old male, resting quietly in bed. No acute distress. Skin: Warm and dry. HEENT: Normocephalic, atraumatic. Conjunctivae are pale. KRIS. Mucous membranes are dry. Neck: Supple. Trachea midline. He has no JVD. Cardiovascular: Regular rate and rhythm. He is without murmur or gallop. Lungs: Clear to auscultation anteriorly. Equal excursion on room air. Abdomen: Soft, nontender. Positive bowel sounds. Genitourinary: Not inspected. Calderon catheter is in place. Cloudy urine noted. Extremities: Have no edema. No clubbing or cyanosis. Integumentary: Tunnelled catheter to the right chest wall. Neurological: Alert and oriented x3. LABORATORY DATA: Sodium 134, potassium 3.9, chloride 92, CO2 of 25, BUN 23, creatinine 5.2, glucose is 84. Anion gap is 17, calcium is 7.3, phosphorus is 3, albumin is 2.8. White count 7.27, hemoglobin 6.6, hematocrit 21, platelet count is 53,000. ASSESSMENT AND PLAN: 1. Acute kidney injury. No recovery. The patient is due for routine dialysis treatment today. We will place him on a 2 K bath. He is to dialyze for 3-1/2 hours. We will attempt to pull 1 to 2 L of ultrafiltration. 2. Electrolytes and acid-base balance. These are stable with correction on dialysis. 3. Anemia. We will plan for 2 units of packed red blood cells to be transfused while on dialysis. 4. Acute kidney injury with no recovery, questionable related to acute process or from his multiple myeloma. We have discussed a renal biopsy with this patient. We have discussed the risks involved. He is willing to proceed. Due to his receiving heparin this a.m. subcutaneous, we will hold his heparin for the next 48 hours. He is planned for a renal biopsy in the a.m. Orders have been placed in the chart for bed rest and vital signs and hemoglobin draw. I would like to thank you for allowing us to follow with this patient. Dictated by MELISA Vargas for Giles Valdez MD Face to face encounter, data reviewed, discussed with Angela Hammer on 10/03/18. I agree with the above assessment and plan of care. cc: MELISA Vargas MD [facility]
--- NOTE | 2018-10-02 13:10 | PROGRESS NOTE ---
DATE: 10/02/2018 SUBJECTIVE: Patient was seen in the dialysis unit. He is receiving dialysis. He is in no acute distress. OBJECTIVE: Vital Signs: Temperature 97.3 degrees, pulse 81, respirations 20, blood pressure 146/60. General: The patient was resting with eyes closed. Aroused easily, in no acute distress. Laboratory: Hematology: WBC 7.27, hemoglobin 6.6, hematocrit 21.0, MCV 94.6, platelets 53,000. Chemistry: Sodium 134, potassium 3.9, chloride 92, CO2 25, BUN 23, creatinine 5.2, glucose 84, calcium 7.3. Total bilirubin 1.26, AST 149, ALT 159, alkaline phosphatase 156. ASSESSMENT AND PLAN: 1. Recent acute respiratory failure, on supplemental oxygen. 2. Pneumonia, on antibiotics. 3. Acute kidney injury. Patient is on dialysis. I believe there are plans for a renal biopsy possibly tomorrow. 4. Multiple myeloma. Follows with Dr. Kaminski. 5. Transaminitis. HIDA scan showed delayed visualization of the gallbladder but ejection fraction was normal. 6. Elevated ferritin. I have ordered HFE gene to check for hemochromatosis. That lab is pending. We will continue to follow and follow his liver function tests. 7. Further plans to be made according to his progress. I have discussed this case with Dr. Moreno. Dictated by MELISA Kirkpatrick for Sonu Moreno MD cc: MELISA Olivier MD
--- NOTE | 2018-10-02 14:50 | INFECTIOUS DISEASE PROGRESS NO ---
DATE: 10/02/2018 Patient has been treated for pneumonia which I think has cleared. 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 The patient had elevated liver function tests, that is improving also. MEDICATIONS: The patient is on ceftaroline the dose of which has been modified because of his renal failure. The patient received IVIG on this admission. PHYSICAL EXAMINATION: Vital Signs: Temperature is 97.3 degrees, pulse 81, respirations 20, blood pressure 146/60. Patient weighs 147 pounds. General: This is an ill-appearing middle-aged male. He is in no acute distress. Head, eyes, ears, nose, and throat: He can hear my spoken words and see near objects. He does not have any white coating on his tongue. Neck: The patient has an IV catheter in the right neck jugular vein. The site is not swollen or draining. Lungs: Clear to auscultation. Cardiovascular: Regular heart rate. Abdomen: Soft and nontender. Neurologic: The patient is awake. He ambulates without difficulty. There is no tremor. LAB AND RADIOLOGY: CBC today shows a white count of 7270, hemoglobin 6.6, and platelet count 53,000. Creatinine is 5.2. GFR is 14. Hepatitis panel is nonreactive. Chest x-ray showed decreased interstitial markings. ASSESSMENT AND PLAN: The patient has been treated for pneumonia. I think the pneumonia has cleared and I am discontinuing ceftaroline. The patient has an immunoglobulin deficiency and this is being handled by Dr. Kaminski. I am signing off the patient's case. I am able to see him on a p.r.n. basis. COMORBIDITIES: The patient has multiple myeloma, gastroesophageal reflux disease and esophagitis. The patient also has end-stage renal disease. cc: Los Presley MD
[2018-10-02 15:34] LABS: BASO# 0.31 X1000 (0.0-0.2); BASO% 3.8 % (0.0-0.8); EOS# 0.29 X1000 (0.0-0.7); EOS% 3.6 % (0.0-10.0); HEMATOCRIT 31.9 % (42.0-52.0); HEMOGLOBIN 10.3 g/dL (14.0-18.0); IMM GRAN# 0.76 X1000 (0.0-0.04); IMM GRAN% 9.3 % (0.0-0.5); LYMPH# 2.33 X1000 (1.2-3.4); LYMPH% 28.6 % (20.5-51.1); MCH 28.7 PG (27-31); MCHC 32.3 g/dL (33-37); MCV 88.9 FL (81-99); MONO# 2.87 X1000 (0.11-0.59); MONO% 35.3 % (1.7-9.3); MPV 10.7 FL (7.4-10.4); NEUT# 1.58 X1000 (1.4-6.5); NEUT% 19.4 % (42.2-75.2); PLT 50 X1000 (130-400); RBC 3.59 XMIL (4.7-6.1); RDW 16.6 % (11.5-14.5); WBC 8.14 X1000 (4.8-10.8)
[2018-10-02] MEDS: PERCOCET-5 PO PRN ×2 (15:55→23:56)
[2018-10-02 15:56] LABS: BANDS 2 % (0-1); BASO 3 % (0-1); EOS 2 % (1-10); LYMPHS 21 % (21-51); MONO 30 % (1-9); SEGS 30 % (42-75)
[2018-10-02 15:57] LABS: ANISOCYTOSIS 1+
[2018-10-02 15:58] LABS: POLYCHROM OCCASIONAL
[2018-10-02] MEDS: TYLENOL PO PRN (23:52)
--- NOTE | 2018-10-03 02:38 | PROGRESS NOTE ---
DATE: 10/02/2018 SUBJECTIVE: The patient is resting in bed. Not in any obvious distress. OBJECTIVE: Vital signs: Temperature is 97.3 degrees, with a pulse of 81, respirations 20, blood pressure is 146/60, oxygen saturation is 98% on room air HEENT: Atraumatic and normocephalic. Cardiovascular: S1 and S2. Respiratory: Has evidence of good entry bilaterally. Abdomen: Soft and nontender. No masses felt. Extremities: No evidence of edema. Neurologic: No obvious focal deficit noted. LABORATORY DATA: WBC is 7.27, hematocrit 31.0, with a platelet count of 53,000. Sodium is 134, potassium 3.9, chloride is 92, bicarbonate is 25, BUN is 23, creatinine is 5.2. INR is 1.3. ASSESSMENT AND PLAN: 1. Acute respiratory failure, improved. Maintain the patient on oxygen if needed. 2. Pneumonia. The patient has completed antibiotic course. 3. Acute kidney injury. Follow up on renal function. Avoid nephrotoxic agents. Nephrology following. 4. Multiple myeloma. Hematology/Oncology following. 5. Anemia. We will type cross and transfuse 1 unit of packed red blood cells. 6. Thrombocytopenia. Follow up on platelet count. Hematology/Oncology on board. 7. Tachyarrhythmia. Continue oral Cardizem. 8. Transaminitis. HIDA scan shows delayed visualization of the gallbladder. Surgery consulted to evaluate for biliary dyskinesia. 9. Elevated ferritin level. Genetic workup for hemochromatosis pending. Suspect that this may be all part of an acute phase reaction. 10. Deep vein thrombosis prophylaxis. Heparin. 11. Gastrointestinal prophylaxis. Proton pump inhibitor. 12. Disposition. I believe the patient can be discharged home in the next day or there about. I could not discharge home today because the patient needed another unit of blood and also I wanted Surgery to evaluate him for biliary dyskinesia. cc: Wilmer Benson MD
[2018-10-03] MEDS: NON-FORMULARY MED 1 EACH in NS 250 ML IV SCH ×2 (03:10→14:58)
[2018-10-03] MEDS: XOPENEX NEB INH SCH ×6 (03:35→23:20)
[2018-10-03] MEDS: ZOFRAN IV PRN ×2 (05:34→15:42)
[2018-10-03 06:30] LABS: HEMATOCRIT 29.9 % (42.0-52.0); HEMOGLOBIN 9.4 g/dL (14.0-18.0); MCH 28.2 PG (27-31); MCHC 31.4 g/dL (33-37); MCV 89.8 FL (81-99); MPV 11.3 FL (7.4-10.4); RBC 3.33 XMIL (4.7-6.1); RDW 17.1 % (11.5-14.5); WBC 8.25 X1000 (4.8-10.8)
[2018-10-03 06:42] LABS: ALBUMIN 3.2 g/dL (3.5-5.0); CALCIUM 7.7 mg/dL (8.8-10.2); PHOSPHORUS 3.1 mg/dL (2.7-4.5); POTASSIUM 3.6 mmol/L (3.5-5.1)
[2018-10-03 08:25] LABS: INR 1.34; PROTIME 17.6 Seconds (11.0-16.0)
[2018-10-03 08:26] LABS: PTT 57.4 Seconds (22.3-41.8)
[2018-10-03] MEDS: PRILOSEC PO SCH (08:28)
--- NOTE | 2018-10-03 11:02 | Diag Imaging Result Doc PS360 ---
CT RENAL BX, JANEEN - 10/03/2018 INDICATION: history of multiple myeloma TECHNIQUE: CT-guided right renal biopsy. The risks and benefits of the procedure were discussed with the patient. All questions were answered. Written and verbal informed consent was obtained. Overlying skin was prepped and draped in sterile fashion. Anesthesia was achieved with injection of 10 cc of 1% lidocaine. COMPARISON: None FINDINGS: The right kidney was biopsied from the posterior approach. Seven biopsy specimens were obtained. These were evaluated by pathology and found to be adequate. IMPRESSION: Successful and uncomplicated CT-guided renal biopsy. Electronically signed by Pepe Espinoza 10/03/2018 11:00 AM
[2018-10-03] MEDS: CARDIZEM CD PO SCH (11:06)
[2018-10-03] MEDS: DULCOLAX PR SCH (11:06)
[2018-10-03] MEDS: SODIUM BICARBONATE PO SCH ×2 (11:06→21:40)
[2018-10-03] MEDS: PERCOCET-5 PO PRN (11:21)
--- NOTE | 2018-10-03 14:00 | NEPHROLOGY PROGRESS NOTE ---
DATE: 10/03/2018 TIME SEEN: 07 SUBJECTIVE: Mr. Majano states that he is a little nauseated this a.m. Otherwise , he denies any discomfort. OBJECTIVE: His most recent vital signs: Last temperature 98.7 degrees, blood pressure 135/76, heart rate 80, respirations 16, he was on room air, last recorded saturation is 100%. Intake and output: He has had 872 in. He had 2 L removed off dialysis yesterday with 195 mL out to void. Laboratory Data: Sodium is 138, potassium 3.6, chloride 93, CO2 of 22, BUN 15, creatinine 4, glucose 91. His anion gap is 23, calcium 7.7, phosphorus 3.1, albumin 3.2. Previous hemoglobin of 10.3 yesterday, hemoglobin this morning is 9.4 with hematocrit of 29.9 prior to renal biopsy. His PT is 17.6, INR 1.34, PTT 57.4. PHYSICAL EXAMINATION: General: This is a 63-year-old male, resting quietly in bed. He appears somewhat distress secondary to nausea. Otherwise, no pain. Skin: Warm and dry. HEENT: Normocephalic, atraumatic. Conjunctivae are pale. KRIS. Mucous membranes dry. Neck: Supple. Trachea midline. No JVD. Cardiovascular: Regular rate and rhythm without murmur or gallop. Lungs: Clear to auscultation anterior. Equal excursion on room air. Abdomen: Soft, nontender. Positive bowel sounds. Genitourinary: Not inspected. Calderon catheter is in place, cloudy urine noted, a little bit clearer today than yesterday. Extremities: Have no edema. No clubbing or cyanosis. Integumentary: Tunnelled dialysis catheter to the right chest wall. Neurological: Alert and oriented x3. ASSESSMENT AND PLAN: 1. Acute kidney injury. The patient is without recovery. He will need dialysis in the a.m. 2. Acute kidney injury secondary to possible cause. The patient is scheduled for a renal biopsy today to rule out multiple myeloma. The patient has been cautioned again on the risks and benefits of the renal biopsy. He states that he is willing to proceed. He has been cautioned that he will have repeat labs every 6 hours and that he is to be on bedrest until 6 p.m. this evening. He states understanding. 3. Electrolytes, acid-base balance, and anemia. These are all acceptable. I would like to thank you for allowing us to follow with this patient. Seen post biopsy. Tolerated well. Bed rest until 6 PM. rg Dictated by MELISA Vargas for Giles Valdez MD Face to face encounter, data reviewed, discussed with Angela Hammer on 10/03/18. I agree with the above assessment and plan of care. rg cc: MELISA Vargas MD [facility]
--- NOTE | 2018-10-03 17:41 | PROGRESS NOTE ---
DATE: 10/03/2018 SUBJECTIVE: This patient is resting comfortably in bed. He is complaining of mild nausea, no vomiting. Otherwise, he denies any discomfort. OBJECTIVE: Vital Signs: Temperature 98.1 degrees, pulse 98, respiratory rate 16, blood pressure 88/67, oxygen saturation 98 on room air. HEENT: Head normocephalic, no trauma. PERRLA. Neck: Supple. No JVD. No masses. Central trachea. Chest: Clear to auscultation. No wheezing. No rales. Abdomen: Soft, mildly distended. No pain. Positive bowel sounds. Genitourinary: Calderon catheter in place. His urine is noted, but it is a little bit cloudy. Extremities: No edema. No clubbing. No cyanosis. Neurological: The patient is alert and oriented x3. No focal deficits. LABORATORY: WBC 8.2, hemoglobin 9, platelet count 47,000. Sodium 138, potassium 3.6, chloride 93, bicarbonate 22, BUN 15, creatinine 4, glucose 91, calcium 7.7, phosphorus 3.1, albumin 3.2. ASSESSMENT AND PLAN: 1. Sepsis on presentation, improved. This patient has been treated already for pneumonia. His white blood cell count upon admission was elevated. He was tachycardic, as well. Today the white blood cell is normal at 8.2, but he has been a little bit tachycardic on and off. His blood pressure has been in the 90s mostly after the procedure and that happened after getting Percocet at 11:[address]-guided right kidney biopsy was done around 10:30 a.m. We will keep an eye on the hemoglobin and hematocrit. We will get a hemoglobin and hematocrit every 6 hours. 2. Pneumonia with immunoglobulin deficiency. Infectious Disease department on board. This patient has been on Teflaro. We will continue following the recommendations of Infectious Disease department. The immunoglobulin deficiency has been handled by Dr. Kaminski. Infectious Disease Department has been following this patient closely and thinks the pneumonia has been resolved. They have suggested to stop the treatment with Teflaro, suggested by the Infectious Disease department. 3. Acute kidney injury with no recovery status post right kidney biopsy, CT-guided. Nephrology department on board, and he will be placed on dialysis in the morning tomorrow. 4. Transaminitis. Continue to follow. 5. Thrombocytopenia. Hematology/Oncology department following this patient closely. This patient has also a history of multiple myeloma. We will follow recommendations. 6. History of multiple myeloma. Followed by Dr. Kaminski. 7. Elevated ferritin level, likely secondary to multiple transfusions in the past, as well as an acute-phase reactant. We just monitor. 8. Tachyarrhythmia. Continue with oral Cardizem. cc: Ventura Schneider MD
[2018-10-03] MEDS: DILAUDID IV PRN (21:39)
[2018-10-04] MEDS: XOPENEX NEB INH SCH ×6 (03:45→23:22)
[2018-10-04] MEDS ORDERED: HEPARIN SUBQ SCH (05:00)
[2018-10-04] MEDS ORDERED: NS 2,000 ML MISC PRN (06:16)
[2018-10-04] MEDS ORDERED: HEPARIN IV PRN (06:16)
[2018-10-04] MEDS ORDERED: TIGHT: 0.2 ML/HR FOR DIALYSIS MISC PRN (06:16)
[2018-10-04 06:19] LABS: HEMATOCRIT 24.6 % (42.0-52.0); HEMOGLOBIN 7.9 g/dL (14.0-18.0); MCH 29.3 PG (27-31); MCHC 32.1 g/dL (33-37); MCV 91.1 FL (81-99); MPV 10.8 FL (7.4-10.4); RBC 2.7 XMIL (4.7-6.1); WBC 9.8 X1000 (4.8-10.8)
[2018-10-04 06:35] LABS: ALBUMIN 2.9 g/dL (3.5-5.0); CALCIUM 7.1 mg/dL (8.8-10.2); CREATININE 5.8 mg/dL (0.7-1.2); PHOSPHORUS 5.4 mg/dL (2.7-4.5); POTASSIUM 4.6 mmol/L (3.5-5.1)
[2018-10-04] MEDS: PRILOSEC PO SCH (06:41)
[2018-10-04] MEDS: ZOFRAN IV PRN ×3 (06:42→19:56)
[2018-10-04] MEDS: CARDIZEM CD PO SCH (09:11)
[2018-10-04] MEDS: SODIUM BICARBONATE PO SCH ×2 (09:11→22:48)
[2018-10-04] MEDS: DULCOLAX PR SCH (09:11)
[2018-10-04] MEDS: PERCOCET-5 PO PRN (09:13)
--- NOTE | 2018-10-04 09:52 | PROGRESS NOTE ---
DATE: 10/04/2018 SUBJECTIVE: This patient is lying comfortably in bed. He is not complaining of any specific problem today. He has been having some nose bleed, platelet count dropped from 47 to 39. His heparin induced thrombocytopenia is less than 0.075 which is negative. SHANNON is negative as well. Since this patient is thrombocytopenic and the hemoglobin is dropping, his PT is slightly elevated as well as the PTT with an INR of 3.34 yesterday, we have decided to hold the heparin subcutaneously. We will continue physical therapy and occupational therapy. We will monitor. OBJECTIVE: Vital Signs: Temperature 97.9 degrees, pulse 96, respiratory rate 20, blood pressure 130/69, and oxygen saturation 100% on room air. HEENT: Head normocephalic. No trauma. PERRLA. Neck: Supple. No JVD. No masses. Central trachea. Chest: Clear to auscultation. No wheezing. No rales. Abdomen: Soft. Mildly distended. No pain. Positive bowel sounds. Genitourinary: Calderon catheter in place. His urine is noted to be cloudy and dark. Extremities: No edema. No clubbing. No cyanosis. Neurological: The patient is alert and oriented x3. No focal deficits. LABORATORY: WBC 9.8, hemoglobin 7.9, hematocrit 24.6, and platelets 39,000. Sodium 137, potassium 4.6, chloride 92, bicarbonate 20, BUN 29, creatinine 5.8 and glucose 103. Calcium 7.1 and phosphorus 5.4. ASSESSMENT AND PLAN: 1. Sepsis on presentation, improved. This patient has been treated already for pneumonia. His white blood cell count upon admission was elevated. Infectious Disease Department already treated this patient. Vital signs are stable. 2. Pneumonia with immunoglobulin deficiency. Like I mentioned before, Infectious Disease Department treated this patient. Antibiotics have been stopped already. Immunoglobulin deficiency has been handled by Dr. Kaminski infectious disease department followed already this patient closely. 3. Acute kidney injury with now recovery status post kidney biopsy, CT guided. Nephrology Department on board postoperative day #1. The plan is to go for dialysis today. His hemoglobin dropped from 9 to 7.9. He will receive a PRBC. 4. Thrombocytopenia. Hematology/Oncology Department following this patient. The heparin induced thrombocytopenia VERONICA has been negative. We will continue following the recommendations of Hematology Department. 5. Transaminitis. I will continue to follow. I will order a CMP tomorrow. 6. History of multiple myeloma followed by Dr. Kaminski. 7. Elevated ferritin level likely secondary to multiple transfusions in the past as well as an acute phase reactant. We will just need to monitor. 8. Tachyarrhythmia. Continue with oral Cardizem. 9. Mild nose bleed. We held the heparin subcutaneously for now. We will continue to monitor. cc: Ventura Schneider MD [facility]
[2018-10-04] MEDS: DILAUDID IV PRN ×2 (13:50→20:49)
--- NOTE | 2018-10-04 14:29 | NEPHROLOGY PROGRESS NOTE ---
DATE: 10/04/2018 TIME SEEN: 07:58. SUBJECTIVE: Mr. Majano is resting quietly in bed. He is status post renal biopsy yesterday. He has sat on the side of the bed earlier this morning. 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 OBJECTIVE: LABORATORY DATA: Sodium 137, potassium 4.6, chloride 92, CO2 20, BUN 29, creatinine 5.8, glucose 103, anion gap 25, calcium 7.1. Phosphorus 5.4, albumin 2.9. White count 9.8, hemoglobin 7.9, hematocrit 24.6, with a platelet count of 39,000. PHYSICAL EXAMINATION: Vital Signs: Temperature 98.7 degrees, blood pressure 114/68, heart rate 93, respirations 20. He is on room air. Last recorded saturation 100%. He has had 1050 in, 175 mL out with need for dialysis. General: This is a 63-year-old male, resting quietly in bed. He is in no acute distress, though he has complaints of nausea. Appears chronically ill. Skin: Warm and dry. HEENT: Normocephalic, atraumatic. Conjunctivae pale. He has KRIS. Mucous membranes dry. Neck: Supple. Trachea midline. No evidence of JVD. Cardiovascular: Regular rate and rhythm. He is without murmur or gallop. Lungs: Clear to auscultation bilaterally. Equal excursion. Abdomen: Soft, nontender. Positive bowel sounds. Back: Has no tenderness present. Genitourinary: Not inspected. Minimal void with dialysis assist. Extremities: No edema. No clubbing or cyanosis. Neurological: Alert and oriented x3. ASSESSMENT AND PLAN: 1. Acute kidney injury. Patient is without recovery and continues to need and require hemodialysis. We will place him on dialysis today, a 3 K bath. We will dialyze him for 3.5 hours. We will attempt to pull patient to 2 L of ultrafiltration. 2. Electrolytes and acid-base balance. These are acceptable with correction on dialysis. 3. Anemia. Patient's hemoglobin has dropped to 7.9 in the last 24 hours from 8 and then 10. We will plan for 1 unit of packed red blood cells to be transfused during dialysis treatment. I would like to thank you for allowing us to follow with this patient. Awaiting biopsy report. rg Dictated by MELISA Vargas for Giles Valdez MD Face to face encounter, data reviewed, discussed with Angela Hammer on 10/04/18. I agree with the above assessment and plan of care. cc: MELISA Vargas MD [facility]
--- NOTE | 2018-10-04 14:45 | PROGRESS NOTE ---
DATE: 10/04/2018 SUBJECTIVE: The patient was awake and alert. He had a visitor at the bedside. He reports having an episode of vomiting earlier. OBJECTIVE: Vital Signs: Temperature 98.3 degrees, pulse 68, respirations 20, blood pressure 118/70. General: The patient is awake and alert, in no acute distress. LABORATORY DATA: Hematology: WBC 9.80, hemoglobin 7.9, hematocrit 24.6, MCV 91.1, platelet 39,000. Chemistry: Sodium 137, potassium 4.6, chloride 92, CO2 of 20, BUN 29, creatinine 5.8, glucose 103. Liver function tests from 10/01/2018: Total bilirubin 1.26, AST 149, ALT 159, alkaline phosphatase 156. ASSESSMENT AND PLAN: 1. Sepsis. Infectious Disease is following. 2. Pneumonia with immunoglobulin deficiency. Patient has received antibiotics and Dr. Presley is following. Dr. Kaminski following immunoglobulin deficiency. 3. Transaminitis. Last liver function tests were done on 10/01/2018. We will repeat liver function test tomorrow. 4. Multiple myeloma. Followed by Dr. Kaminski. 5. Patient had elevated ferritin and elevated iron saturation. An HFE gene analysis was ordered and waiting on those results. We will continue to follow, and further plans will be made according to his progress. I have discussed this case with Dr. Moreno. Dictated by MELISA Kirkpatrick for Sonu Moreno MD cc: MELISA Olivier MD
[2018-10-04] MEDS: AFRIN NASAL SPRAY NAS SCH (22:49)
[2018-10-05] MEDS: PERCOCET-5 PO PRN (02:39)
[2018-10-05] MEDS: XOPENEX NEB INH SCH ×6 (03:05→23:00)
[2018-10-05] MEDS: PRILOSEC PO SCH (06:49)
[2018-10-05 06:54] LABS: ALB/GLOB RATIO 0.4; ALBUMIN 2.8 g/dL (3.5-5.0); CALCIUM 8.3 mg/dL (8.8-10.2); CREATININE 3.7 mg/dL (0.7-1.2); PHOSPHORUS 3.1 mg/dL (2.7-4.5); POTASSIUM 4.2 mmol/L (3.5-5.1); TOTAL BILIRUBIN 0.99 mg/dL (0.20-1.00); TOTAL PROTEIN 10.7 g/dL (6.3-8.3)
[2018-10-05 06:55] LABS: BASO# 0.17 X1000 (0.0-0.2); BASO% 1.7 % (0.0-0.8); EOS# 0.42 X1000 (0.0-0.7); EOS% 4.3 % (0.0-10.0); HEMATOCRIT 24.3 % (42.0-52.0); HEMOGLOBIN 7.7 g/dL (14.0-18.0); IMM GRAN# 0.75 X1000 (0.0-0.04); IMM GRAN% 7.6 % (0.0-0.5); LYMPH# 3.25 X1000 (1.2-3.4); LYMPH% 32.9 % (20.5-51.1); MCH 28.6 PG (27-31); MCHC 31.7 g/dL (33-37); MCV 90.3 FL (81-99); MONO# 2.55 X1000 (0.11-0.59); MONO% 25.8 % (1.7-9.3); MPV 10.6 FL (7.4-10.4); NEUT# 2.73 X1000 (1.4-6.5); NEUT% 27.7 % (42.2-75.2); RBC 2.69 XMIL (4.7-6.1); RDW 15.9 % (11.5-14.5); WBC 9.87 X1000 (4.8-10.8)
[2018-10-05 06:56] LABS: PLT 36 X1000 (130-400)
[2018-10-05 07:29] LABS: EOS 6 % (1-10); LYMPHS 38 % (21-51); MONO 19 % (1-9); SEGS 37 % (42-75)
[2018-10-05] MEDS: SODIUM BICARBONATE PO SCH ×2 (09:18→22:42)
[2018-10-05] MEDS: CARDIZEM CD PO SCH (09:18)
[2018-10-05] MEDS: DULCOLAX PR SCH (09:19)
[2018-10-05] MEDS: DILAUDID IV PRN ×2 (09:19→14:34)
[2018-10-05] MEDS: ZOFRAN IV PRN (09:19)
[2018-10-05] MEDS: AFRIN NASAL SPRAY NAS SCH ×2 (09:20→22:42)
[2018-10-05] MEDS ORDERED: PHENERGAN IV ONE (11:30)
[2018-10-05] MEDS ORDERED: SODIUM CHLORIDE 0.9% INJ ONE (11:30)
--- NOTE | 2018-10-05 13:01 | Diag Imaging Result Doc PS360 ---
ABDOMEN FLAT/UPRIGHT - 10/05/2018 INDICATION: pain COMPARISON: 09/27/2018 FINDINGS: There is a nonobstructive bowel gas pattern. No free air or abdominal calcifications. IMPRESSION: No acute disease. Electronically signed by Pepe Espinoza 10/05/2018 12:59 PM
[2018-10-05] MEDS ORDERED: GAMUNEX-C 10% IV ONE (14:45)
--- NOTE | 2018-10-05 14:59 | PROGRESS NOTE ---
DATE: 10/05/2018 SUBJECTIVE: This patient is complaining of nausea today. He still is thrombocytopenia, and the platelet count dropped from 39 to 36. Hemoglobin dropped also to 7.7, and he already received 4 units of PRBC's during this hospitalization. I had a conversation with Dr. Kaminski by phone. We will monitor for now the platelet count, and if this drops around 25 or lower than that I will transfuse him. We did an abdominal x-ray that showed a non obstructive bowel gas pattern, no acute disease. LFTs are better compared with admission. Heparin induced thrombocytopenia is negative. OBJECTIVE: Vital Signs: Temperature 98.6 degrees, pulse 96, respiratory rate 18, blood pressure 130/70, and oxygen saturation 99 on nasal cannula. HEENT: Head normocephalic. No trauma. PERRLA. Neck: Supple. No JVD. Central trachea. Chest: Clear to auscultation. Some crepitus at the bases. Abdomen: Soft. Mildly distended. Positive bowel sounds. No pain. Genitourinary: Calderon catheter in place. Extremities: No edema. No clubbing. No cyanosis. Neurological: The patient is alert and oriented x3. He follows commands. He has generalized weakness. LABORATORY: WBC 9.8, hemoglobin 7.7, hematocrit 24.3, and platelets 36,000. Sodium 143, potassium 4.2, chloride 96, bicarbonate 28, BUN 16 and creatinine 3.7. Glucose 93. Calcium 8.3, phosphorus 3.1. AST 59. ALT 56, and alkaline phosphatase 99. ASSESSMENT AND PLAN: 1. Sepsis on presentation, improved. This patient has been treated already for pneumonia. His white blood cell count upon admission was elevated and today is normal. Infectious Disease Department follows this patient. Vital signs are stable. 2. Pneumonia with immunoglobulin deficiency. Like I mentioned before, Infectious Disease Department has already treated this patient. Antibiotics were stopped already a few days ago. I will order some IV Ig for this patient. 3. Acute kidney injury with no recovery status post kidney biopsy, CT-guided. Nephrology department on board. Postoperative day #2. The plan is to continue with dialysis as scheduled. 4. Anemia. This patient has been getting blood transfusions. He has documented 4 PRBCs during this hospitalization. 5. Thrombocytopenia. Hematology/Oncology Department on board. I had a conversation with Dr. Kaminski today by phone. I will monitor the platelet count. I will transfuse as needed. 6. Transaminitis. LFTs are getting better. 7. History of multiple myeloma followed by Dr. Kaminski as an outpatient. 8. Elevated ferritin level likely secondary to multiple transfusion in the past as well as acute phase reactant. We will just monitor. 9. Tachyarrhythmia. Continue with oral Cardizem. 10. Mild nose bleed. Heparin has been stopped. We will continue to monitor. Resolved. 11. Generalized weakness and physical deconditioning. Continue physical therapy and occupational therapy. cc: Ventura Schneider MD
--- NOTE | 2018-10-05 15:09 | NEPHROLOGY PROGRESS NOTE ---
DATE: 10/05/2018 TIME SEEN: 0710. SUBJECTIVE: Mr. Majano is resting quietly in bed. He has no complaints. Occasional episodes of nausea. OBJECTIVE: His most recent vital signs: Last temperature 99 degrees, blood pressure 119/67, heart rate 88, respirations are 22, he is on room air, last recorded saturation is 98%. Intake and output: He has had 1600 in, 1831 out on dialysis yesterday. He has had no void. Laboratory Data: Sodium 143, potassium 4.2, chloride 96, CO2 of 28, BUN 16, creatinine 3.7 , glucose 93, anion gap of 19, calcium is 8.3, phosphorus 3.1, albumin of 2.8. White count 9.87, hemoglobin 7.7, hematocrit 24.3, with a platelet count of 36,000. PHYSICAL EXAMINATION: General: This is a 63-year-old male. He is resting quietly in bed. He is in no acute distress. Skin: Warm and dry. HEENT: Normocephalic, atraumatic. Conjunctiva is pale. He has KRIS. Mucous membranes are dry. Neck : Supple. Trachea midline. No evidence of JVD. Cardiovascular: He has regular rate and rhythm. No murmur or gallop appreciated. Lungs: Clear to auscultation anteriorly. Equal excursion on room air. Abdomen: Soft, nontender. Positive bowel sounds. Genitourinary: Not inspected. Patient has minimal urine out. Extremities: Have no edema. No clubbing or cyanosis. Neurological: Alert and oriented x3. ASSESSMENT AND PLAN: 1. Acute kidney injury. Patient has been without recovery. No urine output. He will require hemodialysis. He currently has a Vas-Cath that is in place in the right groin. Once we receive his biopsy, we will go ahead and plan for a tunneled dialysis catheter placement for patient to be discharged. 2. Electrolytes and acid-base balance. These are acceptable with correction on dialysis. 3. Anemia. This does remain low. He did receive 1 unit of packed red blood cells yesterday. Hemoglobin is at 7.7 this morning. 4. History of multiple myeloma. Patient had a renal biopsy to determine if this has migrated to his kidneys. Biopsy results are still pending. I would like to thank you for allowing us to follow with this patient. 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 rg Dictated by MELISA Vargas for Giles Valdez MD Face to face encounter, data reviewed, discussed with Angela Hammer on 10/05/18. I agree with the above assessment and plan of care. rg cc: MELISA Vargas MD [facility]
[2018-10-05] MEDS ORDERED: NS 500 ML ONE (15:54)
[2018-10-05] MEDS: PHENERGAN IV PRN (22:46)
[2018-10-06] MEDS: XOPENEX NEB INH SCH ×6 (03:20→23:11)
[2018-10-06] MEDS: PHENERGAN IV PRN (05:39)
[2018-10-06] MEDS: DILAUDID IV PRN ×3 (05:39→20:47)
[2018-10-06] MEDS ORDERED: NS 2,000 ML MISC PRN (05:49)
[2018-10-06] MEDS ORDERED: TIGHT: 0.2 ML/HR FOR DIALYSIS MISC PRN (05:49)
[2018-10-06] MEDS ORDERED: HEPARIN IV PRN (05:49)
[2018-10-06 06:25] LABS: HEMATOCRIT 21.2 % (42.0-52.0); HEMOGLOBIN 6.7 g/dL (14.0-18.0); MCH 29.4 PG (27-31); MCHC 31.6 g/dL (33-37); RBC 2.28 XMIL (4.7-6.1); RDW 16.2 % (11.5-14.5); WBC 6.31 X1000 (4.8-10.8)
[2018-10-06 06:32] LABS: ALBUMIN 2.6 g/dL (3.5-5.0); CALCIUM 7.5 mg/dL (8.8-10.2); CREATININE 5.3 mg/dL (0.7-1.2); PHOSPHORUS 3.1 mg/dL (2.7-4.5); POTASSIUM 3.6 mmol/L (3.5-5.1)
[2018-10-06 06:39] LABS: PLT 27 X1000 (130-400)
[2018-10-06] MEDS: PRILOSEC PO SCH (08:58)
[2018-10-06] MEDS: DULCOLAX PR SCH (08:58)
[2018-10-06] MEDS: AFRIN NASAL SPRAY NAS SCH ×2 (08:58→23:36)
[2018-10-06] MEDS: SODIUM BICARBONATE PO SCH ×2 (08:58→23:35)
[2018-10-06] MEDS: CARDIZEM CD PO SCH (08:59)
[2018-10-06] MEDS ORDERED: XYLOCAINE-MPF 2% ONE (09:19)
[2018-10-06] MEDS ORDERED: QUELICIN (DOSE) ONE (09:19)
[2018-10-06] MEDS ORDERED: DIPRIVAN 1% ONE (09:19)
[2018-10-06] MEDS ORDERED: HEPARIN ONE (09:21)
[2018-10-06] MEDS ORDERED: XYLOCAINE 1%/EPI 1:100,000 ONE (09:21)
[2018-10-06] MEDS ORDERED: NS 250 ML ONE (09:21)
[2018-10-06 09:47] LABS: BANDS 16 % (0-1); LYMPHS 28 % (21-51); MONO 8 % (1-9); SEGS 32 % (42-75)
[2018-10-06 09:48] LABS: ANISOCYTOSIS 1+; HYPOCHROM 1+
[2018-10-06] MEDS ORDERED: FENTANYL ONE (09:48)
[2018-10-06 09:49] LABS: LARGE PLATELETS 1+
[2018-10-06] MEDS ORDERED: MARCAINE 0.5% ONE (10:26)
[2018-10-06 10:55] LABS: FLOW CYTOMETERY SOURCE BONE MARROW; LEUKEMIA LYMPHOMA BY FLOW REFERRED FOR TESTING
[2018-10-06 12:01] LABS: BASO# 0.25 X1000 (0.0-0.2); BASO% 3.2 % (0.0-0.8); EOS# 0.39 X1000 (0.0-0.7); HEMATOCRIT 21.9 % (42.0-52.0); HEMOGLOBIN 6.7 g/dL (14.0-18.0); IMM GRAN# 0.69 X1000 (0.0-0.04); IMM GRAN% 8.9 % (0.0-0.5); LYMPH# 2.81 X1000 (1.2-3.4); LYMPH% 36.2 % (20.5-51.1); MCH 28.6 PG (27-31); MCHC 30.6 g/dL (33-37); MCV 93.6 FL (81-99); MONO# 1.63 X1000 (0.11-0.59); MPV 9.8 FL (7.4-10.4); NEUT# 1.99 X1000 (1.4-6.5); NEUT% 25.7 % (42.2-75.2); PLT 45 X1000 (130-400); RBC 2.34 XMIL (4.7-6.1); RDW 16.3 % (11.5-14.5); WBC 7.76 X1000 (4.8-10.8)
--- NOTE | 2018-10-06 13:15 | OPERATIVE NOTE ---
PROCEDURE DATE: 10/06/2018 PREOPERATIVE DIAGNOSIS: End-stage renal disease requiring chronic hemodialysis. POSTOPERATIVE DIAGNOSIS: End-stage renal disease requiring chronic hemodialysis. PRINCIPAL PROCEDURE: 1. Removal of right internal jugular Vas-Cath. 2. Placement of right internal jugular PermCath using ultrasound and fluoroscopy. SURGEON: Minnie Cardenas MD ANESTHESIA: General. ESTIMATED BLOOD LOSS: 10 mL. DRAINS: None. INDICATIONS: Jabari Majano is a 63-year-old black male who has multiple myeloma and renal failure, and needs chronic hemodialysis. I placed earlier in this hospitalization a right internal jugular Vas-Cath and they want more permanent access, and I have been asked to place a PermCath. DESCRIPTION OF PROCEDURE: The patient was brought to the operating room, placed supine, received general anesthesia, and was intubated. Plans are for him also to get a bone marrow biopsy while he is in the OR. His right neck Vas-Cath and right anterior chest were all prepped and draped in a sterile field. He received Ancef prophylactically. His platelets were low, so we were infusing platelets right before surgery. I removed the Vas-Cath from his right internal jugular vein and held pressure until bleeding stopped. We then directed our attention to placement of the PermCath. I wanted to use the right internal jugular vein again. I used ultrasound to identify the right internal jugular vein, which was of good size, and using ultrasound guidance, I directed an 18-gauge needle into the internal jugular vein. I placed a guidewire through this needle into the right side of the heart and checked its position with fluoroscopy. A counterincision was made on the anterior right chest and then I tunneled a precurved PermCath from the chest incision to the neck incision. I placed sequential dilators over the guidewire and then I placed a dilator and sheath over the guidewire into the superior vena cava. I removed the dilator and guidewire, and through the sheath, I placed the distal end of the precurved PermCath. 13 cm of this catheter was placed through the sheath into the superior vena cava. I peeled the sheath away. We were happy with the position of the catheter. I again checked it with fluoro. It was functioning well and it was flushed with saline followed by weak heparin. I secured the PermCath at its exit site with two 2-0 nylon stitches and I closed the small incision base of right neck from the PermCath with a 4-0 Monocryl subcuticular stitch. Steri-Strips were applied followed by dry dressing and an OpSite at the exit site. He tolerated this procedure well. Plans are now for our pathologist to do the bone marrow biopsy. cc: Minnie Cardenas MD
[2018-10-06] MEDS ORDERED: GAMUNEX-C 10% IV SCH (13:45)
--- NOTE | 2018-10-06 13:52 | PROGRESS NOTE ---
DATE: 10/06/2018 SUBJECTIVE: The patient was awake and alert. He was eating lunch in no acute distress. OBJECTIVE: Vital Signs: Temperature 98.5 degrees, pulse 96, respirations 20, blood pressure 121/69. General: The patient was awake and alert in no acute distress. LABORATORY: Hematology: - WBC 7.76, hemoglobin 6.7, hematocrit 21.9, MCV 93.6, platelets 45,000. Chemistry: Sodium 138, potassium 3.6, chloride 93, CO2 of 22, BUN 27, creatinine 5.3, glucose 84. On 10/05/2018 total bilirubin 0.99, AST 59, ALT 56, alkaline phosphatase 99. ASSESSMENT AND PLAN: 1. Sepsis, on antibiotics, following with Infectious Disease. 2. Pneumonia, with immunoglobulin deficiency. 3. Acute kidney injury. Started on dialysis. 4. Anemia. Continue to monitor and transfuse as needed. 5. Thrombocytopenia. Dr. Kaminski is following. 6. Transaminitis. His liver function tests have improved, most likely elevated liver function tests related to infection versus drug-induced liver injury. We did workup including hemochromatosis evaluation and that was negative. 7. History of multiple myeloma, following with Dr. Kaminski. 8. His liver function tests have improved. GI will sign off for now. Please reconsult us if needed. I have discussed this case with Dr. Moreno. Dictated by MELISA Kirkpatrick for Sonu Moreno MD cc: MELISA Olivier MD
--- NOTE | 2018-10-06 15:59 | NEPHROLOGY PROGRESS NOTE ---
DATE: 10/06/2018 SUBJECTIVE: Mr. Majano is lying in bed, resting comfortably. No complaints this morning. OBJECTIVE: Vital signs: Blood pressure is 131/78, heart rate 95, respirations 18, temperature 99.0. General: No acute distress. Skin is warm and dry. Conjunctivae are pink. Neck veins are not distended. Heart is regular, no gallops. Lungs are equal. No crackles. Abdomen is soft, nontender. Bowel sounds present. Extremities with 1+ edema. No edema or cyanosis. IMPRESSION: Acute kidney injury. Biopsy with kappa light chain cast nephropathy. No significant ATN. We will continue routine dialysis, and I have discussed the case regularly with Dr. Kaminski. He will need a tunneled dialysis catheter. Unfortunately, thrombocytopenia limits his capacity to go to the operating room today. I have discussed this also with Dr. Paul, Dr. Cardenas, and Dr. Kaminski. He is receiving platelets this morning and may require treatment for possible immune thrombocytopenia. We will give 2 units of packed red blood cells during his dialysis treatment. cc: Giles Valdez MD
--- NOTE | 2018-10-06 17:14 | PROGRESS NOTE ---
DATE: 10/06/2018 SUBJECTIVE: This patient's platelet count yesterday was 36,000. He received 1 unit of platelet yesterday in the afternoon and today platelet count was 27,000. I have discussed the case with Dr. 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 OBJECTIVE: Vital Signs: Temperature 98.5, pulse 99, respiratory rate 20, blood pressure 121/69, oxygen saturation 100% on room air. HEENT: Head normocephalic. No trauma. PERRLA. Neck: Supple. No JVD. No masses. Central trachea. Chest: Clear to auscultation. Some crepitus at the bases Abdomen: Soft, mildly distended. Positive bowel sounds. No pain. Genitourinary: Calderon catheter in place. Extremities: No edema, no clubbing, no cyanosis. Neurologic: The patient is alert and oriented x3. He follow commands. He has generalized weakness. LABORATORY: WBC 7.7, hemoglobin 6.7, hematocrit 21.9, platelet 27,000, after transfusion 45,000. Sodium 138, potassium 3.6, chloride 93, bicarbonate 22, BUN 27, creatinine 5.3, glucose 84, calcium 7.5, phosphorus 3.1, albumin 2.6. ASSESSMENT AND PLAN: 1. Sepsis on presentation, improved. This patient has been already treated for pneumonia. The white blood cell upon admission was elevated and today is normal. Infectious disease department followed this patient already. 2. Pneumonia with immunoglobulin deficiency, he received a dose of immunoglobulin before but at this moment he will receive 2 doses of immunoglobulin 1 today and hopefully 1 tomorrow. 3. Likely idiopathic thrombocytopenia, case has been discussed with Dr. Kaminski, patient will receive Decadron and IVIG. 4. Acute kidney injury with no recovery is status post kidney biopsy CT-guided, nephrology department on board. Postoperative day #3. Today this patient has a PermCath for dialysis. 5. Anemia, this patient will receive 2 units of PRBCs during dialysis today. 6. Thrombocytopenia, like I mentioned before likely secondary to idiopathic thrombocytopenia. 7. Transaminitis, will continue to monitor the LFTs. 8. History of multiple myeloma followed by Dr. Kaminski as an outpatient, aware. 9. Elevated ferritin level likely secondary to multiple transfusion in the past as well as acute phase reactant, we will just monitor. 10. Tachyarrhythmia. Continue with oral Cardizem. 11. Mild nosebleed resolved. 12. Generalized weakness and physical deconditioning. Continue physical therapy and occupational therapy. cc: Ventura Schneider MD
[2018-10-06] MEDS: DECADRON 40 MG in NS 50 ML IV SCH (18:40)
[2018-10-07] MEDS: PHENERGAN IV PRN ×2 (00:13→21:35)
[2018-10-07] MEDS: DILAUDID IV PRN ×3 (00:13→09:53)
[2018-10-07] MEDS: XOPENEX NEB INH SCH ×6 (04:03→22:56)
[2018-10-07] MEDS: PRILOSEC PO SCH (06:11)
[2018-10-07 06:45] LABS: HEMATOCRIT 27.6 % (42.0-52.0); HEMOGLOBIN 8.7 g/dL (14.0-18.0); MCH 29.8 PG (27-31); MCHC 31.5 g/dL (33-37); MCV 94.5 FL (81-99); MPV 11.5 FL (7.4-10.4); RBC 2.92 XMIL (4.7-6.1); RDW 17.5 % (11.5-14.5); WBC 4.45 X1000 (4.8-10.8)
[2018-10-07 07:12] LABS: ALB/GLOB RATIO 0.3; ALBUMIN 2.7 g/dL (3.5-5.0); CALCIUM 7.5 mg/dL (8.8-10.2); CREATININE 3.4 mg/dL (0.7-1.2); POTASSIUM 4.6 mmol/L (3.5-5.1); TOTAL BILIRUBIN 1.05 mg/dL (0.20-1.00); TOTAL PROTEIN 11.8 g/dL (6.3-8.3)
[2018-10-07] MEDS: CARDIZEM CD PO SCH (09:53)
[2018-10-07] MEDS: SODIUM BICARBONATE PO SCH ×2 (09:53→21:17)
[2018-10-07] MEDS: DECADRON 40 MG in NS 50 ML IV SCH (09:53)
[2018-10-07] MEDS: AFRIN NASAL SPRAY NAS SCH ×2 (09:57→21:18)
[2018-10-07] MEDS: DULCOLAX PR SCH (09:57)
--- NOTE | 2018-10-07 10:55 | PROGRESS NOTE ---
DATE: 10/07/2018 SUBJECTIVE: This patient is feeling better. He is still complaining of some abdominal discomfort (per patient). He has been having bowel movement, the last one was yesterday, and as per the patient was normal. He received yesterday his first dose of IVIG and Decadron due to the possibility of ITP. He received also a unit of platelets and blood. His hemoglobin improved from 6.7 to 8.7, and the platelet count is about the same compared with yesterday. OBJECTIVE: Vital signs: Temperature is 98.9, pulse 101, respiratory rate 18, blood pressure 137/79, oxygen saturation 96% on room air. HEENT: Head is atraumatic and normocephalic. PERRLA. Neck supple. No JVD. No masses. Central trachea. Chest: Clear to auscultation. Some crepitans at the bases. Abdomen is soft, mildly distended. Mild tenderness to palpation which is generalized. No signs of peritoneal irritation. Positive bowel sounds. Extremities: No edema. No clubbing. No cyanosis. Neurologic: The patient is alert and oriented x3. He follows commands. He has generalized weakness. DIAGNOSTIC DATA: WBC is 4.4, hemoglobin 8.7, hematocrit 27.6, platelets 45. Sodium is 134, potassium 4.6, chloride 93, bicarbonate 21, BUN is 23, creatinine 3.4, glucose 143, calcium 7.5, albumin 2.7. ASSESSMENT AND PLAN: 1. Sepsis on presentation, improved. This patient has been already treated for pneumonia. The white blood cells upon admission were evaluated. Infectious Disease Department already evaluated this patient. 2. Pneumonia, resolved. 3. Immunoglobulin deficiency. This patient has been getting IVIG, pending his last dose today. 4. 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 The case has been discussed with Dr. Kaminski. Continue with the same management. Platelet count has been stable as well as the hemoglobin after getting IVIG and steroids. 5. Acute kidney injury with no recovery. He is status post CT-guided kidney biopsy, pending results. Nephrology onboard. Continue with dialysis as scheduled. 6. Anemia. This patient received one unit of PRBC yesterday after dialysis. Hemoglobin improved. We will monitor. 7. Thrombocytopenia. About the same compared with yesterday. 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 8. Transaminitis. We will continue to monitor the LFTs. 9. History of multiple myeloma, followed by Dr. Kaminski as an outpatient. Aware. 10.Elevated ferritin level, likely secondary to multiple transfusions in the past as well as acute phase reactant. We will monitor. 11.Tachyarrhythmia. We will continue with oral Cardizem. 12.Mild nosebleed, resolved. 13.Generalized weakness and physical deconditioning. Continue with physical therapy and occupational therapy. cc: Ventura Schneider MD
[2018-10-07] MEDS ORDERED: NS 1,000 ML IV SCH (11:45)
--- NOTE | 2018-10-07 14:47 | NEPHROLOGY PROGRESS NOTE ---
DATE: 10/07/2018 SUBJECTIVE: He had a bone marrow biopsy, dialysis, tunnel catheter, platelet and blood transfusions on yesterday. He is started on Solu-Medrol. This morning, he states he feels well. No new complaints. No pain. No nausea. No shortness of breath. OBJECTIVE: Vital Signs: Blood pressure 137/79, heart rate 97, respirations 16, afebrile. General: No acute distress. Skin: Warm and dry. Neck: Neck veins are not appreciated. Heart: Regular. S4 gallop. Lungs: Equal. No crackles. Abdomen: Soft, nontender. Bowel sounds present. Extremities: No edema, clubbing or cyanosis. 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 He had his routine dialysis yesterday. Next planned treatment on Tuesday. Electrolytes/acid base in target. Anemia improved following transfusion. cc: Giles Valdez MD
[2018-10-07] MEDS ORDERED: NS 250 ML IV ONE (15:40)
[2018-10-07] MEDS: SODIUM CHLORIDE 0.9% INJ PRN (21:35)
[2018-10-07] MEDS: TYLENOL PO PRN (21:36)
[2018-10-07] MEDS ORDERED: GAMUNEX-C 10% IV SCH (23:00)
[2018-10-08] MEDS: XOPENEX NEB INH SCH ×6 (04:11→23:27)
[2018-10-08] MEDS: PRILOSEC PO SCH (06:25)
[2018-10-08] MEDS: PHENERGAN IV PRN ×3 (06:32→22:26)
[2018-10-08 07:41] LABS: ALB/GLOB RATIO 0.3; ALBUMIN 2.6 g/dL (3.5-5.0); CREATININE 5.3 mg/dL (0.7-1.2); POTASSIUM 4.7 mmol/L (3.5-5.1); TOTAL BILIRUBIN 0.93 mg/dL (0.20-1.00); TOTAL PROTEIN 11.6 g/dL (6.3-8.3)
[2018-10-08 08:30] LABS: CALCIUM 6.4 mg/dL (8.8-10.2)
[2018-10-08 09:08] LABS: BASO# 0.06 X1000 (0.0-0.2); BASO% 0.7 % (0.0-0.8); EOS# 0.02 X1000 (0.0-0.7); EOS% 0.2 % (0.0-10.0); HEMATOCRIT 15.9 % (42.0-52.0); IMM GRAN# 0.89 X1000 (0.0-0.04); IMM GRAN% 9.7 % (0.0-0.5); LYMPH# 2.34 X1000 (1.2-3.4); LYMPH% 25.5 % (20.5-51.1); MCH 28.4 PG (27-31); MCHC 31.4 g/dL (33-37); MCV 90.3 FL (81-99); MONO# 1.22 X1000 (0.11-0.59); MONO% 13.3 % (1.7-9.3); MPV 12.4 FL (7.4-10.4); NEUT# 4.66 X1000 (1.4-6.5); NEUT% 50.6 % (42.2-75.2); RBC 1.76 XMIL (4.7-6.1); WBC 9.19 X1000 (4.8-10.8)
[2018-10-08 09:09] LABS: PLT 24 X1000 (130-400)
[2018-10-08 10:03] LABS: ANISOCYTOSIS 1+; BANDS 4 % (0-1); HYPOCHROM 1+; LYMPHS 18 % (21-51); MICROCYTOSIS OCCASIONAL; MONO 6 % (1-9); SEGS 54 % (42-75)
[2018-10-08] MEDS: SODIUM BICARBONATE PO SCH ×2 (10:18→15:33)
[2018-10-08] MEDS: AFRIN NASAL SPRAY NAS SCH (10:19)
[2018-10-08] MEDS: DULCOLAX PR SCH (10:21)
[2018-10-08] MEDS: CARDIZEM CD PO SCH ×2 (10:26→16:06)
[2018-10-08] MEDS ORDERED: DECADRON 40 MG in NS 50 ML IV STA (12:50)
[2018-10-08 13:11] LABS: RETIC% 0.11 % (0.8-2.1)
--- NOTE | 2018-10-08 13:27 | PROGRESS NOTE ---
DATE: 10/08/2018 SUBJECTIVE: This patient's hemoglobin and platelet count dropped today. Hemoglobin dropped to 5 and platelet count to 24,000. He will receive 1 unit of PRBCs and platelets. I will check again the CBC today around 6:00 p.m. to see if the hemoglobin and hematocrit as well as the platelet count improved. I had a conversation with Dr. Kaminski by phone. He has suggested to give him some more steroids, get an LDH, adult PATRICIA, and reticulocyte count. OBJECTIVE: Vital Signs: Temperature 98.1 degrees, pulse 91, respiratory rate 20, blood pressure 134/77, oxygen saturation 100% on room air. HEENT: Head normocephalic. No trauma. PERRLA. Neck: Supple. No JVD. No masses. Central trachea. Chest: Clear to auscultation. Some crepitus at the bases. Abdomen: Soft, mildly distended. Positive bowel sounds. Mild pain to palpation on the sides. Genitourinary: Calderon catheter in place. Extremities : No edema. No clubbing. No cyanosis. Neurological: The patient is alert and oriented x3. He follows commands. He has generalized weakness. LABORATORY: WBC 9.1, hemoglobin 5, hematocrit 15.9, platelets 24,000. Sodium 135, potassium 4.7, chloride 93, bicarbonate 17, BUN 68, creatinine 5.3, glucose 132, calcium 6.4, albumin 2.6. ASSESSMENT AND PLAN: 1. Sepsis on presentation improved. He already has been treated for pneumonia. The white blood cells upon admission were elevated. Infectious Disease Department already saw the patient. 2. 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 I will continue with steroids today. That has been suggested by Dr. Kaminski. 3. Anemia. Hemoglobin dropped from 8.7 to 5 today. We will continue with steroids. I will transfuse this patient with 1 unit of PRBCs. I will recheck the hemoglobin and hematocrit at 6:00 p.m. I have placed 2 units on hold. I think there is a possibility of hemolytic anemia. 4. Thrombocytopenia possibly due to idiopathic thrombocytopenic purpura. 5. Transaminitis. We will continue to monitor the LFTs. 6. Multiple myeloma. Followed by Dr. Kaminski. We will continue to monitor status post bone marrow biopsy. 7. Elevated ferritin level likely secondary to multiple transfusions in the past as well as acute phase reactant. We will monitor. 8. Tachyarrhythmia. Continue with oral Cardizem. 9. Generalized weakness and physical deconditioning. Continue physical therapy and occupational therapy. cc: Ventura Schneider MD [facility]TD[facility]
[2018-10-08] MEDS: DILAUDID IV PRN ×2 (16:07→19:51)
[2018-10-08 20:11] LABS: BASO# 0.04 X1000 (0.0-0.2); BASO% 0.7 % (0.0-0.8); EOS# 0.01 X1000 (0.0-0.7); EOS% 0.2 % (0.0-10.0); IMM GRAN# 0.53 X1000 (0.0-0.04); IMM GRAN% 9.3 % (0.0-0.5); LYMPH# 1.13 X1000 (1.2-3.4); LYMPH% 19.9 % (20.5-51.1); MCH 28.7 PG (27-31); MCHC 31.8 g/dL (33-37); MCV 90.4 FL (81-99); MONO% 12.3 % (1.7-9.3); MPV 10.9 FL (7.4-10.4); NEUT# 3.28 X1000 (1.4-6.5); NEUT% 57.6 % (42.2-75.2); RBC 1.88 XMIL (4.7-6.1); RDW 15.1 % (11.5-14.5); WBC 5.69 X1000 (4.8-10.8)
[2018-10-08 20:15] LABS: HEMOGLOBIN 5.4 g/dL (14.0-18.0)
[2018-10-08 20:16] LABS: PLT 30 X1000 (130-400)
[2018-10-08 20:26] LABS: BANDS 3 % (0-1); BASO 1 % (0-1); LYMPHS 12 % (21-51); MONO 4 % (1-9); SEGS 64 % (42-75)
[2018-10-08 20:27] LABS: ANISOCYTOSIS 1+; LARGE PLATELETS OCCASIONAL; TARGET CELLS OCCASIONAL
[2018-10-08 20:54] LABS: ALB/GLOB RATIO 0.3; ALBUMIN 2.7 g/dL (3.5-5.0); CREATININE 5.7 mg/dL (0.7-1.2); POTASSIUM 4.5 mmol/L (3.5-5.1); TOTAL BILIRUBIN 1.09 mg/dL (0.20-1.00); TOTAL PROTEIN 10.6 g/dL (6.3-8.3)
[2018-10-08 20:59] LABS: CALCIUM 6.1 mg/dL (8.8-10.2)
[2018-10-08] MEDS ORDERED: CALCIUM GLUCONATE 1 GM in NS 50 ML IV ONE (21:03)
[2018-10-08] MEDS: SODIUM CHLORIDE 0.9% INJ PRN (22:26)
[2018-10-09] MEDS: SODIUM BICARBONATE PO SCH ×3 (00:05→21:28)
[2018-10-09] MEDS: AFRIN NASAL SPRAY NAS SCH ×2 (00:06→21:34)
[2018-10-09 01:32] LABS: HEMATOCRIT 19.8 % (42.0-52.0); HEMOGLOBIN 6.3 g/dL (14.0-18.0)
[2018-10-09] MEDS: DILAUDID IV PRN (03:35)
[2018-10-09] MEDS: XOPENEX NEB INH SCH ×6 (04:19→22:53)
[2018-10-09 06:20] LABS: HEMATOCRIT 21.3 % (42.0-52.0); HEMOGLOBIN 7.1 g/dL (14.0-18.0); MCH 28.5 PG (27-31); MCHC 33.3 g/dL (33-37); MCV 85.5 FL (81-99); RBC 2.49 XMIL (4.7-6.1); RDW 16.3 % (11.5-14.5); WBC 5.04 X1000 (4.8-10.8)
[2018-10-09 06:21] LABS: BASO# 0.04 X1000 (0.0-0.2); BASO% 0.8 % (0.0-0.8); EOS# 0.01 X1000 (0.0-0.7); EOS% 0.2 % (0.0-10.0); IMM GRAN# 0.48 X1000 (0.0-0.04); IMM GRAN% 9.5 % (0.0-0.5); LYMPH# 0.81 X1000 (1.2-3.4); LYMPH% 16.1 % (20.5-51.1); MONO# 0.54 X1000 (0.11-0.59); MONO% 10.7 % (1.7-9.3); MPV 11.6 FL (7.4-10.4); NEUT# 3.16 X1000 (1.4-6.5); NEUT% 62.7 % (42.2-75.2)
[2018-10-09 07:04] LABS: ALB/GLOB RATIO 0.3; ALBUMIN 2.7 g/dL (3.5-5.0); CREATININE 6.2 mg/dL (0.7-1.2); POTASSIUM 4.5 mmol/L (3.5-5.1); TOTAL BILIRUBIN 1.19 mg/dL (0.20-1.00); TOTAL PROTEIN 10.5 g/dL (6.3-8.3)
[2018-10-09 07:06] LABS: CALCIUM 6.4 mg/dL (8.8-10.2)
[2018-10-09] MEDS: PRILOSEC PO SCH (07:23)
[2018-10-09 07:31] LABS: PLT 18 X1000 (130-400)
[2018-10-09] MEDS ORDERED: NS 2,000 ML MISC PRN (07:40)
[2018-10-09 07:55] LABS: BANDS 8 % (0-1); BASO 2 % (0-1); LYMPHS 14 % (21-51); MONO 6 % (1-9); SEGS 56 % (42-75)
[2018-10-09] MEDS ORDERED: CALCIUM GLUCONATE 1 GM in NS 50 ML IV ONE (07:56)
[2018-10-09] MEDS: DULCOLAX PR SCH (08:31)
[2018-10-09] MEDS: CARDIZEM CD PO SCH (08:31)
[2018-10-09] MEDS: PHENERGAN IV PRN ×2 (10:39→18:36)
[2018-10-09] MEDS ORDERED: PATIENT'S OWN MED SCH (11:15)
[2018-10-09] MEDS ORDERED: NS 500 ML IV SCH (12:00)
[2018-10-09] MEDS: PATIENT'S OWN MED PO SCH (12:31)
--- NOTE | 2018-10-09 14:26 | NEPHROLOGY PROGRESS NOTE ---
DATE: 10/09/2018 SUBJECTIVE: Patient resting in bed. He has no complaints today. OBJECTIVE: Vital Signs: Temperature 97.9 degrees, pulse 84, respiratory rate 18, blood pressure 122/62, intake 1.5 L, output 300 mL. General: Middle-aged gentleman resting in bed awake and alert, no acute distress. HEENT: Normocephalic, atraumatic. KRIS. Neck: Supple without JVD. Cardiovascular: Regular rate and rhythm with a gallop. Pulmonary: Is clear bilaterally. He has equal excursion. Abdomen: Soft with positive bowel sounds. : Not inspected. Extremities: No clubbing, cyanosis or edema. Integumentary: Skin is warm and dry. LAB DATA: WBC of 5.0 hemoglobin 7.1, sodium 136, potassium 4.5, CO2 14, creatinine 6.2, his platelet counts today were 18,000. ASSESSMENT/PLAN: 1. Multiple myeloma with chronic kidney disease 5D now requiring dialysis. Today is his routine dialysis day. We will dialyze him on a 2 K bath, UF to dry weight 3-1/2 hour treatment. Will hold his heparin secondary to his low platelet count. 2. Anemia, electrolytes, acid-base balance. These are stable. Continue to treat on dialysis, transfuse as needed. He is to have platelet transfusion today I see. Dictated by MELISA Macedo for Giles Valdez MD Face to face encounter, data reviewed, discussed with Blanca Ham on 10/09/18. I agree with the above assessment and plan of care. cc: Giles Valdez MD [facility]
--- NOTE | 2018-10-09 17:22 | HEMO/ONC PROGRESS NOTE ---
DATE: 10/09/2018 SUBJECTIVE: Patient continues to be very weak. Patient denies any clinical signs of bleeding. Patient denies any other complaints at this time. OBJECTIVE: Vital Signs: Temperature of 97.9 degrees, heart rate 84, respiratory 18, blood pressure 120/66, saturations 98% on room air. General: Patient is awake lying in bed no acute distress noted. HEENT: Anicteric, pupils PERRLA, mucous membranes moist. Cardiovascular: S1, S2, regular rate and rhythm. Chest: Bilateral breath sounds clear to auscultation. Abdomen: Soft, bowel sounds present all 4 quadrants, mildly tender to palpation. Skin: Warm dry and intact. Neurologic: Alert and oriented x3, no focal deficits noted. LABORATORY DATA: White blood cell count is 5.04, hemoglobin 6.3, hematocrit 19.8, platelet count 218,000, potassium 4.5, BUN 91, creatinine 6.2. ASSESSMENT/PLAN: 1. Multiple myeloma: Patient is extremely weak at this time. Patient will need rehabilitation once he is discharged. At this time patient not a candidate for any further chemotherapy. We discussed hospice options with patient. Continue to monitor. 2. Idiopathic thrombocytopenia: Platelet counts continue trend downward today they are 18,000. Patient will receive transfusion of platelets. Patient also be started on Promacta 25 mg daily. We will continue to monitor platelet count closely. 3. Acute kidney injury: Continue recommendations per Nephrology. 4. Anemia: Patient receive 2 units packed red blood cells today. Continue to monitor at this time. 5. Plan of care discussed Kaminski. Dictated by MELISA Baca for Kvng Kaminski MD Patient seen and examined. Patient's condition has significantly worsened over the last week. He has worsening thrombocytopenia and anemia. Bone marrow aspirate shows significant plasma cells. Biopsy results pending. If this is all related to myeloma, we may have to discuss comfort measures. Kvng Kaminski MD. cc: MELISA Baca MD [facility]ITALIvelisse
--- NOTE | 2018-10-09 18:09 | PROGRESS NOTE ---
DATE: 10/09/2018 SUBJECTIVE: The patient hemoglobin and platelet count are low. I discussed the case with Dr. Kaminski and he recommended to transfuse this patient with 2 units of PRBCs and 1 unit of platelet. Reticulocyte count is low. LDH is 583. OBJECTIVE: Vital Signs: Temperature 97.4, pulse 79, respiratory rate 18, blood pressure 115/62, oxygen saturation 100% on room air. HEENT: Head normocephalic. No trauma. PERRLA. Neck: Supple. No JVD. No masses. Central trachea. Chest: Clear to auscultation. Some crepitus at the bases. Abdomen: Soft, mildly distended. Positive bowel sounds. Some tenderness to palpation which is generalized mostly on the sides. Genitourinary: Calderon catheter in place. Extremities: No edema. No clubbing. No cyanosis. Neurological: The patient is alert and oriented x3. He follows commands, but he has generalized weakness. LABORATORY: WBC 5, hemoglobin 6.3, hematocrit 19.8, platelet 18. Sodium 136, potassium 4.5, chloride 95, bicarbonate 14, BUN 91, protein 6.2, glucose 123. Calcium 6.4. AST 366. ALT 219, alkaline phosphatase 67, albumin 2.7. ASSESSMENT AND PLAN: 1. Sepsis on presentation, improved. This patient has been treated already for pneumonia. 2. Possible idiopathic thrombocytopenic purpura. This patient received steroids for 3 days and the platelet count continues to drop. Probably there is a problem forming the platelets. Hematology-Oncology on board. 3. Anemia. We will transfused today with 2 units. Reticulocyte count is slow, LDH is high. 4. Thrombocytopenia, as above. 5. Transaminitis. Will continue to monitor the liver function tests. 6. Multiple myeloma, followed by Dr. Kaminski. He is status post bone marrow biopsy. 7. Elevated ferritin level likely secondary to multiple transfusion in the past, as well as acute phase reactant. Will monitor. 8. Acute kidney injury with no recovery. He has been placed on dialysis. He had a kidney biopsy. Pending results and recommendations. 9. Generalized weakness and physical deconditioning. Continue physical therapy and occupational therapy. 10. Tachyarrhythmia, on Cardizem. cc: Ventura Schneider MD
[2018-10-09] MEDS: PERCOCET-5 PO PRN (18:36)
[2018-10-09 21:02] LABS: BASO# 0.05 X1000 (0.0-0.2); HEMATOCRIT 28.7 % (42.0-52.0); HEMOGLOBIN 9.7 g/dL (14.0-18.0); IMM GRAN# 0.38 X1000 (0.0-0.04); IMM GRAN% 7.4 % (0.0-0.5); LYMPH# 0.92 X1000 (1.2-3.4); LYMPH% 17.8 % (20.5-51.1); MCH 28.4 PG (27-31); MCHC 33.8 g/dL (33-37); MCV 84.2 FL (81-99); MONO# 0.79 X1000 (0.11-0.59); MONO% 15.3 % (1.7-9.3); MPV 11.2 FL (7.4-10.4); NEUT# 3.03 X1000 (1.4-6.5); NEUT% 58.5 % (42.2-75.2); PLT 45 X1000 (130-400); RBC 3.41 XMIL (4.7-6.1); RDW 15.5 % (11.5-14.5); WBC 5.17 X1000 (4.8-10.8)
[2018-10-09 21:17] LABS: BANDS 10 % (0-1); LYMPHS 19 % (21-51); MONO 5 % (1-9); SEGS 66 % (42-75)
[2018-10-10] MEDS: PHENERGAN IV PRN ×3 (00:54→21:23)
[2018-10-10] MEDS: DILAUDID IV PRN ×4 (01:24→23:55)
[2018-10-10] MEDS: XOPENEX NEB INH SCH ×4 (03:50→15:02)
[2018-10-10] MEDS: PRILOSEC PO SCH (07:01)
[2018-10-10 07:07] LABS: BASO# 0.04 X1000 (0.0-0.2); BASO% 0.7 % (0.0-0.8); HEMATOCRIT 28.8 % (42.0-52.0); HEMOGLOBIN 9.5 g/dL (14.0-18.0); IMM GRAN# 0.54 X1000 (0.0-0.04); LYMPH# 0.86 X1000 (1.2-3.4); LYMPH% 14.4 % (20.5-51.1); MCH 28.3 PG (27-31); MCV 85.7 FL (81-99); MONO# 1.21 X1000 (0.11-0.59); MONO% 20.3 % (1.7-9.3); MPV 11.9 FL (7.4-10.4); NEUT# 3.32 X1000 (1.4-6.5); NEUT% 55.6 % (42.2-75.2); RBC 3.36 XMIL (4.7-6.1); RDW 15.7 % (11.5-14.5); WBC 5.97 X1000 (4.8-10.8)
[2018-10-10 07:08] LABS: PLT 38 X1000 (130-400)
[2018-10-10 07:18] LABS: CALCIUM 7.5 mg/dL (8.8-10.2); CREATININE 3.4 mg/dL (0.7-1.2); POTASSIUM 3.6 mmol/L (3.5-5.1)
[2018-10-10 07:28] LABS: BANDS 1 % (0-1); LYMPHS 15 % (21-51); MONO 6 % (1-9); NRBC 4 % (0-0); SEGS 72 % (42-75)
[2018-10-10 07:29] LABS: TARGET CELLS 1+
[2018-10-10] MEDS: AFRIN NASAL SPRAY NAS SCH ×2 (09:43→11:10)
--- NOTE | 2018-10-10 10:25 | PROGRESS NOTE ---
DATE: 10/10/2018 HISTORY: Mr. Majano was admitted on 09/20/2018 with weakness and fever. This is a 63-year-old, male, well known to our service with a history of multiple myeloma, chronic pain, hypertension, and gastroesophageal reflux disease. Was sent from Dr. Kaminski's office with abnormal lab. He had been complaining of fever, chills, and weakness over the last couple of weeks. PAST MEDICAL HISTORY: 1. Multiple myeloma. 2. Chronic pain. 3. L1 compression fracture. 4. Hypertension. 5. Gastroesophageal reflux disease. 6. Esophagitis. He was admitted with sepsis and pneumonia. He has made clinical improvement but it has been a long hospital course. PHYSICAL EXAMINATION: Today, temperature 99.5 degrees, pulse 84, respirations 12, blood pressure 134/71. Pupils are equal and round. He sitting up in bed. Cardiovascular examination, regular rhythm and rate without murmur or S3. Abdomen is soft. Skin is warm and dry. Lungs are clear in all lung saleh. Urine output is 3100 mL. DIAGNOSTIC DATA: He had a right jugular Vas-Cath with ultrasound. Last chest x-ray I think was 09/30/2018. ASSESSMENT AND PLAN: 1. Sepsis, which is improved. The patient is being treated for pneumonia. 2. Possible idiopathic thrombocytopenic purpura. He has been on steroids for 4 days. Platelet counts continue to drop. Suspect problem with bone marrow forming platelets. Hematology/oncology on board. 3. Anemia. Yesterday, received 2 units of packed red blood cells. Reticulocyte count is low. LDH is high. 4. Thrombocytopenia. As above. 5. Transaminitis. Continue to monitor liver functions. 6. Multiple myeloma, status post bone marrow biopsy. 7. Elevated ferritin level, likely secondary to multiple transfusions as well as acute phase reactant. 8. Acute kidney injury, in recovery. Has been placed on dialysis. He has had a kidney biopsy. 9. General weakness and physical deconditioning. 10. Tachyarrhythmia. He is on Cardizem. 11. Review of his orders. I do not see any change. cc: Jose Mario MD
[2018-10-10] MEDS: SODIUM BICARBONATE PO SCH (10:51)
[2018-10-10] MEDS: CARDIZEM CD PO SCH (10:51)
[2018-10-10] MEDS: PATIENT'S OWN MED PO SCH (10:51)
[2018-10-10] MEDS: DULCOLAX PR SCH (10:51)
--- NOTE | 2018-10-10 13:03 | NEPHROLOGY PROGRESS NOTE ---
DATE: 10/10/2018 SUBJECTIVE: Patient resting in bed. He states he has been a little nauseated this morning, otherwise no issues. OBJECTIVE: Vital Signs: Temperature 98.6 degrees, pulse 79, respiratory rate 17, blood pressure 136/69. Intake 3.1 L, output 2.9 L, and 2.3 L of this was ultrafiltrate removal on dialysis. General: This is an ill-appearing, middle-aged gentleman resting in bed. He is awake and alert. He is in no acute distress. HEENT: Normocephalic, atraumatic. Conjunctivae pale. Oral mucosa is moist. Neck: Supple. There is no JVD. Cardiovascular: Regular rate and rhythm. S4. Pulmonary: Clear bilaterally. He is on 2 L nasal cannula. Abdomen: Soft, with positive bowel sounds. : Not inspected. Extremities: No clubbing, cyanosis, or edema. Integumentary: Skin is warm and dry. Tunnel dialysis catheter to right upper chest wall with insertion site clean, dry, and intact. LABORATORY DATA: WBC of 5.9, hemoglobin 9.5, platelets of 38,000. Sodium 139, potassium 3.6, CO2 of 25, creatinine 3.4, calcium 7.5. ASSESSMENT AND PLAN: 1. Multiple myeloma in the setting of chronic kidney disease, now requiring dialysis. Continue on Tuesday, Tuesday, Tuesday. 2. Question of idiopathic thrombocytopenia purpura, followed by Hematology/ Oncology. He has received platelets yesterday. 3. Anemia, electrolytes, acid-base balance. These are acceptable. He is to receive blood today. Dictated by MELISA Macedo for Giles Valdez MD Face to face encounter, data reviewed, discussed with Blanca Ham on 10/10/18. I agree with the above assessment and plan of care. cc: Giles Valdez MD [facility]
--- NOTE | 2018-10-10 14:53 | HEMO/ONC PROGRESS NOTE ---
DATE: 10/10/2018 SUBJECTIVE: Patient continues to be weak, weakness is still not improving at this time. OBJECTIVE: Vital Signs: Temperature 99.5 degrees, heart rate 84, respiratory rate 12, blood pressure 137/71, saturation 95% on room air. General: Patient is awake lying in bed, no acute distress noted. HEENT: Anicteric, pupils PERRLA. Mucous membranes moist. Cardiovascular: S1, S2. Regular rate and rhythm. Abdomen: Soft, nontender, bowel sounds present all 4 quadrants. Neurologic: Alert, oriented x3, no focal deficits noted. LABORATORY DATA: White blood cell count is 5.97, hemoglobin 9.5, hematocrit 28.8, platelets at 38,000, potassium 3.6, BUN 41, creatinine 3.4. ASSESSMENT AND PLAN: 1. Multiple myeloma: Patient continues to be extremely weak. Patient not a candidate for any further therapy at this time. If this is all been caused by his multiple myeloma we will have discuss further comfort care measures only. 2. Idiopathic thrombocytopenia: Platelet count today at 38,000. Patient has been started on Promacta 25 mg daily. Will continue to monitor platelet counts very closely. 3. Acute kidney injury: Continue recommendation per Nephrology and primary medical team. 4. Anemia: Hemoglobin, hematocrit stable, patient is status post couple units of packed red blood cells. Today hemoglobin 9.5, hematocrit 28.8, continue to monitor closely, continue transfuse as needed. 5. Generalized weakness and physical deconditioning: Patient continue with physical therapy. Patient continue to get stronger. 6. Code Status: Patient is a DNR - Level 1 Dictated by MELISA Baca for Kvng Kaminski MD Patient seen and examined. I received a call from hematopathologist at [facility]. He has significant involvement of the bone marrow with multiple myeloma. Unfortunately his performance status is worsening. He also has significant ITP/thrombocytopenia which makes it very difficult to treat his myeloma. He has renal failure on dialysis. He has very poor social support and in the past has been quite noncompliant with carrying out instructions and orders due to poor memory and understanding. He also has very poor families support and his family members have not been seen in the clinic. I think it would be very difficult to pursue therapy with him. I discussed comfort measures and they are agreeable. Proceed with DNR level I. Proceed with hospice. Kvng Kaminski M.D. cc: MELISA Baca MD [facility]vel[facility]
[2018-10-10] MEDS: PERCOCET-5 PO PRN (16:23)
[2018-10-10] MEDS ORDERED: ATIVAN IV PRN (16:32)
[2018-10-10] MEDS ORDERED: ATROPINE 1 % OPHTH SOLN SL PRN (16:33)
[2018-10-11] MEDS: DILAUDID IV PRN (08:06)
--- NOTE | 2018-10-11 08:30 | NEPHROLOGY PROGRESS NOTE ---
DATE: 10/11/2018 SUBJECTIVE: I was informed by the Palliative Care Service on yesterday that the patient will transition to comfort care only and discontinue dialysis given that he has no further treatment options related to his myeloma. As such, I will sign off. Please call if I can help. cc: Giles Valdez MD
[2018-10-11 11:52] VITALS: BP 134/72
--- NOTE | 2018-10-13 17:58 | DISCHARGE SUMMARY ---
ADMISSION DATE: 09/20/2018 DISCHARGE DATE: 10/11/2018 HISTORY: The patient was admitted on 09/20/2018 and was, I think, put on palliative care/hospice care on 10/11/2018. The patient was admitted with weakness and fever. A 63-year-old male, well known to our service with history of multiple myeloma, chronic pain, hypertension and gastroesophageal reflux. He was sent from Dr. Kaminski's office with abnormal labs, specifically abnormal renal function. Subjectively, he has been complaining of fever, chills, body aches and weakness over the last 3 weeks. He has had a cough with brown sputum production. He has been having increasing right upper quadrant pain, occasional nausea and vomiting. He denies any chest pain. No diarrhea. He has been having decrease in p.o. intake and decrease in urine output. Labs done in the emergency room showed a white count of 24,000 and anemia, with a left shift. He was acidotic with acute kidney injury and elevated liver functions which appeared to be new, and mild elevation of his lactic acid level. PAST MEDICAL HISTORY: 1. Multiple myeloma, followed by Dr. Kaminski. 2. Chronic pain. 3. L1 compression fracture. 4. Hypertension. 5. Gastroesophageal reflux disease. 6. History of esophagitis. No significant surgical history. HOSPITAL COURSE: Admission diagnosis of sepsis. Unclear with his bronchitis or pneumonia. He was admitted. We did get a CT of the thorax. He had acute kidney injury, high anion gap acidosis, elevated liver function. He has underlying multiple myeloma. Dr. Kaminski has been following. Chest CT on 09/20/2018 showed scarring with chronic subsegmental atelectasis in lung bases, similar to a previous study; innumerable lytic lesions, essentially stable, known to be from multiple myeloma; no definite acute chest pathology. Echocardiogram from 09/21: Acute aortic valve, trileaflet; mitral valve normal; tricuspid valve was normal; trace pulmonary regurgitation; trace mitral regurgitation; ejection fraction was 60% to 70%; there was no pericardial effusion. Dr. Kaminski following multiple myeloma. He has been on Revlimid, Decadron and Velcade, full doses. The patient has received the last dose of treatment on 09/13/2018, noncompliant, at this time holding treatment. Possible sepsis. We obtained blood cultures and sputum cultures. Acute kidney injury and anemia. Nephrology was consulted. Dr. Valdez evaluated acute kidney injury, secondary to volume depletion. We gave him some fluids, watching his electrolytes, anemia. He also developed thrombocytopenia and continued to have trouble with renal function, so we did try some dialysis treatment. Infectious Disease was asked to come on board. 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 He had blood cultures that grew out coagulase-negative staphylococcus and felt that was a contaminant. The patient was on broad-spectrum antibiotics, cefepime and Zyvox. Dr. Moreno was consulted for elevated liver function tests. Bilirubin had improved since admission. His LFTs, AST and ALT have returned back to normal along with normal alkaline phosphatase. The possibility of transaminitis related to infection versus medications, so we continued to monitor. Platelet functions continued to be poor. We got an abdominal ultrasound: Increased renal echotexture which can be seen with medical renal disease; sludge in the gallbladder. Suspect he has acute tubular necrosis and could experience recovery for renal function. The patient and family wanted to pursue palliative care. DIAGNOSES: Full list of problems are: 1. Acute respiratory failure. Continue supplementary oxygen. 2. Pneumonia, which appears to have improved. He is on antibiotics. He has immunoglobulin deficiency. 3. Acute kidney injury, suspect acute tubular necrosis. 4. Multiple myeloma. 5. Tachyarrhythmia. 6. Transaminitis. 7. Elevated ferritin level. 8. Deep vein thrombosis prophylaxis. Continue. 9. Low platelet count persists. He had a bone marrow aspiration and there are sheets of plasma cells. He wanted to just pursue comfort care. DISPOSITION: The patient was seen. We had a call from the pyrometer mechanic in [place]. He has significant involvement of the bone marrow with multiple myeloma. Unfortunately, his performance status is worsening. Also he has significant ITP and thrombocytopenia, which makes it very difficult to treat his myeloma. Renal failure, on dialysis. He has very poor social support, has been quite noncompliant with carrying out instructions apparently in the past with Dr. Kaminski. So we will go on hospice care, and he was transferred to hospice care on 10/11/2018. cc: Jose Mario MD
== END 2018-10-11 11:59 | disposition hospice, inpatient (51) | DRG 871 ==
LOC: ED 10:38 → 3N 16:46 → SUATTDRO 16:46 → ICU 09-21 18:37 → 4N 09-28 09:48
PROVIDERS: ATTEND Emergency Medicine
CPT/HCPCS: 36430; 50200; 71010; 71045; 71250; 74019; 74020; 74176; 76000; 76700; 78227; 80048; 80053; 80069; 80074; 80196; 80307; 80324; 80329; 81001; 81256; 82003; 82009; 82140; 82550; 82553; 82570; 82607; 82728; 82746; 82784; 82805; 82948; 83036; 83540; 83550; 83605; 83615; 83735; 83880; 83935; 84100; 84132; 84145; 84156; 84300; 84484; 85014; 85018; 85025; 85027; 85045; 85610; 85651; 85730; 85999; 86022; 86038; 86039; 86140; 86850; 86880; 86900; 86901; 86920; 87040; 87088; 87205; 87275; 87276; 87324; 87449; 87804; 88184; 88185; 88237; 88264; 88280; 88300; 88305; 88311; 88313; 93005; 93010; 93306; 93971; 94640; 94761; 96365; 96375; 97110; 97116; 97162; 97165; 97530; 99285; 99291; A9270; A9537; C1750; G0480; G6038; G6039; J0330; J0610; J0692; J1170; J1561; J1644; J1940; J2020; J2060; J2270; J2405; J2543; J2550; J2765; J3010; J3370; J7030; J7040; J7050; P9016; P9035; P9047; S0020; XXXXX

== ENCOUNTER 2018-10-11 12:00 | Inpatient (IN) ==
[2018-10-11] MEDS ORDERED: ATIVAN IV PRN (13:15)
[2018-10-11] MEDS ORDERED: ATROPINE 1 % OPHTH SOLN SL PRN (13:16)
[2018-10-11] MEDS ORDERED: TYLENOL PO PRN (13:21)
[2018-10-11] MEDS ORDERED: NITROGLYCERIN SL PRN (13:23)
--- NOTE | 2018-10-11 14:16 | PROGRESS NOTE ---
DATE: 10/11/2018 SUBJECTIVE: The family had discussed just for palliative care. He is awake and alert no complaints this morning. He right now is getting some Dilaudid p.r.n., and he is under hospice care, I believe. OBJECTIVE: Lungs: Clear in all lung saleh. Cardiovascular: Regular rhythm and rate without murmur or S3. Abdomen: Soft. Skin: Warm and dry. LABORATORY DATA: No new lab. ASSESSMENT AND PLAN: 1. Recently switched over to palliative care. 2. History of multiple myeloma. 3. History of L1 compression fracture. 4. Idiopathic thrombocytopenic purpura suspected. Platelet counts continue to drop. 5. Transaminitis. 6. Elevated ferritin level. We will continue palliative care. cc: Jose Mario MD
[2018-10-11] MEDS: DILAUDID IV PRN ×3 (16:04→22:25)
[2018-10-11] MEDS: PHENERGAN IV SCH ×2 (16:07→20:11)
[2018-10-11] MEDS: SODIUM CHLORIDE 0.9% INJ SCH (16:07)
[2018-10-12] MEDS: DILAUDID IV PRN ×2 (04:45→08:31)
[2018-10-12] MEDS: PHENERGAN IV SCH ×4 (04:45→22:19)
[2018-10-12] MEDS ORDERED: NARCAN IV PRN (09:40)
[2018-10-12] MEDS: DILAUDID-HP 30 MG in NS 27 ML IV PRN (12:29)
[2018-10-12] MEDS: LR 1,000 ML IV SCH (12:35)
[2018-10-12] MEDS: DULCOLAX PR SCH (12:36)
--- NOTE | 2018-10-12 13:44 | PROGRESS NOTE ---
DATE: 10/12/2018 SUBJECTIVE: Mr. Majano is feeling pretty good. He is requesting to go home. OBJECTIVE: Temperature 98.4 degrees, pulse 86, respirations 18, and blood pressure 152/89. Pupils are equal and round. Lungs are clear in all lung saleh. Cardiovascular regular rhythm and rate without murmur or S3. Abdomen is soft. ASSESSMENT AND PLAN: He has been admitted to inpatient hospice. He has multiple myeloma, chronic pain, L1 compression fracture, gastroesophageal reflux disease and esophagitis. He has had sepsis, and treated for acute kidney injury, high anion gap, and has struggled. Family has wanted palliative care, and he is on comfort care program at this time. cc: Jose Mario MD
[2018-10-12] MEDS: SODIUM CHLORIDE 0.9% INJ SCH ×2 (16:54)
[2018-10-13] MEDS: PHENERGAN IV SCH ×4 (03:59→22:26)
--- NOTE | 2018-10-13 09:45 | PROGRESS NOTE ---
DATE: 10/13/2018 SUBJECTIVE: Mr. Majano is awake and comfortable. No complaints of pain at this time. is at the bedside. OBJECTIVE: He remains afebrile. Temperature 98.6 degrees, pulse 100, respirations 20, blood pressure 129/82. Lungs are clear anterolateral. Cardiovascular regular rate without murmur or S3. Abdomen is soft. Skin is warm and dry. Urine output was 750 mL. ASSESSMENT AND PLAN: He is admitted inpatient hospice underlying multiple myeloma, chronic pain, L1 compression fracture, gastroesophageal reflux with esophagitis and persistent thrombocytopenia. would like just comfort measures. Looking over orders, I do not see any change. cc: Jose Mario MD
[2018-10-13] MEDS: LR 1,000 ML IV SCH (13:50)
[2018-10-13] MEDS: DILAUDID-HP 30 MG in NS 27 ML IV PRN (18:13)
[2018-10-13] MEDS: DULCOLAX PR SCH (18:16)
[2018-10-13] MEDS: SODIUM CHLORIDE 0.9% INJ SCH (18:19)
[2018-10-14] MEDS: PHENERGAN IV SCH ×5 (04:13→22:12)
[2018-10-14] MEDS: DULCOLAX PR SCH ×2 (04:21→09:06)
[2018-10-14] MEDS: SODIUM CHLORIDE 0.9% INJ SCH ×3 (09:06→15:58)
--- NOTE | 2018-10-14 11:42 | PROGRESS NOTE ---
DATE: 10/14/2018 SUBJECTIVE: Mr. Majano is awake. His mouth is bothering him. He has not been eating much. His tongue has whitish brownish plaque on the tongue and the back of his throat. OBJECTIVE: Temperature 97.6 degrees, pulse 108, respirations 14, and blood pressure 176/101. His blood pressures have had a range of 129 to 176/82 to 101. Pupils are equal. No distended neck veins. Lungs are clear in all lung saleh. Cardiovascular exam with regular rhythm and rate without murmur or S3. Abdomen is soft. Skin is warm and dry. ASSESSMENT AND PLAN: He is admitted for hospice comfort care. We have not checked any lab or further orders, but I will get him something for his mouth. We can try some Nystatin swish and swallow 4 times a day. We will try Magic mouthwash 4 times a day. cc: Jose Mario MD
[2018-10-14] MEDS: MBX SOLUTION MT PRN ×3 (12:01→22:22)
[2018-10-14] MEDS: MYCOSTATIN SUSP PO SCH ×3 (12:02→22:19)
[2018-10-14] MEDS: LR 1,000 ML IV SCH (12:13)
[2018-10-14] MEDS: DILAUDID-HP 30 MG in NS 27 ML IV PRN (23:38)
[2018-10-15] MEDS: PHENERGAN IV SCH ×6 (00:34→20:53)
[2018-10-15] MEDS: SODIUM CHLORIDE 0.9% INJ SCH ×3 (04:53→21:04)
[2018-10-15] MEDS: DULCOLAX PR SCH (09:09)
[2018-10-15] MEDS: MYCOSTATIN SUSP PO SCH ×4 (09:10→20:54)
[2018-10-15] MEDS: MBX SOLUTION MT PRN ×2 (09:10→12:22)
[2018-10-15] MEDS: LR 1,000 ML IV SCH (09:16)
[2018-10-15] MEDS ORDERED: OFIRMEV 1000 MG/ISOTONIC SOLN 1,000 MG/100 ML BOTTLE IV PRN (12:11)
--- NOTE | 2018-10-15 13:11 | PROGRESS NOTE ---
DATE: 10/15/2018 SUBJECTIVE: Mr. Majano is still not eating much. He denies any pain. His mouth is sore. He is rather despondent. His was at the bedside. OBJECTIVE: Vitals: He had a temperature 101.6 degrees, pulse 118, respirations 22, blood pressure 152/88. Eyes: Pupils are equal, round. Lungs: Clear in all lung saleh. Cardiovascular: Regular rhythm and rate without murmur or S3. URINE OUTPUT: 1700 mL. ASSESSMENT AND PLAN: He is on palliative care, underlying multiple myeloma, chronic pain L1 compression fracture, gastroesophageal reflux, esophagitis, persistent thrombocytopenia, bone marrow with significant myeloma, plasma cell hyperplasia. We have tried to give him something to help his mouth. Continue his other medications for comfort. cc: Jose Mario MD
[2018-10-15] MEDS: DILAUDID IV PRN ×2 (15:39→22:29)
[2018-10-15] MEDS ORDERED: ATIVAN IV PRN (16:07)
[2018-10-15] MEDS: ATIVAN IV PRN ×4 (17:03→23:45)
[2018-10-15] MEDS: ROXANOL CONC. LIQUID PO PRN ×2 (18:18→20:57)
[2018-10-16] MEDS: PHENERGAN IV SCH ×4 (00:30→12:11)
[2018-10-16] MEDS: DILAUDID IV PRN ×2 (01:10→03:41)
[2018-10-16] MEDS: OFIRMEV 1000 MG/ISOTONIC SOLN 1,000 MG/100 ML BOTTLE IV PRN ×2 (01:57→08:26)
[2018-10-16] MEDS: ROXANOL CONC. LIQUID PO PRN ×3 (01:57→10:04)
[2018-10-16] MEDS: ATIVAN IV PRN ×4 (02:07→10:04)
[2018-10-16] MEDS: SODIUM CHLORIDE 0.9% INJ SCH ×3 (03:44→12:11)
[2018-10-16] MEDS: DILAUDID-HP 30 MG in NS 27 ML IV PRN (04:20)
[2018-10-16 07:18] VITALS: BP 123/66
[2018-10-16] MEDS: LR 1,000 ML IV SCH (08:16)
[2018-10-16] MEDS: MYCOSTATIN SUSP PO SCH (08:18)
[2018-10-16] MEDS: DULCOLAX PR SCH (08:22)
--- NOTE | 2018-10-16 12:16 | PROGRESS NOTE ---
DATE: 10/16/2018 SUBJECTIVE: Mr. Majano is not responsive this morning. He had rapid tachypnea yesterday evening. OBJECTIVE: Vitals: His temperature has gone up to 103. Pulse 150, respirations 26, blood pressure 123/66. Eyes: Pupils are equal. Neck: No distended neck veins. Lungs: Clear anterolateral. Cardiovascular: Regular rhythm and rate. sinus tachycardia. Abdomen: Soft. Extremities: No pedal edema. LABORATORY: Platelets are 16,000. URINE OUTPUT: 900 mL. ASSESSMENT AND PLAN: End-stage multiple myeloma, thrombocytopenia, suspect probably has underlying infection as well. Family wants to continue comfort care. He seems to be declining fairly fast. I do not see any change. We will give him Ativan and are giving him Dilaudid for comfort. cc: Jose Mario MD
== END 2018-10-16 12:15 | disposition expired | DRG 840 ==
LOC: 4N 12:00
PROVIDERS: ATTEND Emergency Medicine
CPT/HCPCS: 94761; A9270; J0131; J1170; J2060; J2550; J7120